=== PATIENT | female | born 1975 | race Two or more races ===

== ENCOUNTER 2024-03-26 02:08 | Emergency (ER) | payer BC, OTHER ==
[~2024-03-26] VITALS: Ht 157.5 cm; Wt 133.4 kg
[2024-03-26 03:07] LABS: Urine Bacteria FEW /hpf (None Seen); Urine Blood 1+ /uL (Negative); Urine Clarity Turbid (Clear); Urine Color Yellow (Yellow); Urine Mucus FEW (None Seen); Urine Protein, UAD TRACE (Negative); Urine Specific Gravity 1.028 (1.001-1.035); Urine Urobilinogen Normal (Negative); Urine WBC 8 /hpf (0 - 5)
[2024-03-26 04:27] LABS: Basophils # (auto) 0.1 10 ^3/uL (0-0.2); Basophils % (auto) 0.5 % (0.0-2.0); Eosinophils # (auto) 0.2 10 ^3/uL (0-0.8); Eosinophils % (auto) 1.5 % (0.0-7.0); Hematocrit 44.8 % (36.0-46.0); Hemoglobin 15.3 g/dL (12.2-16.2); Lymphocytes # (auto) 1.9 10 ^3/uL (0.4-5.4); Lymphocytes % (auto) 17.9 % (10.0-50.0); Mean Corpuscular Hemoglobin 29.8 pg (28.0-32.0); Mean Corpuscular Hgb Conc. 34.2 g/dL (32.0-36.0); Mean Corpuscular Volume 87.2 fL (80.0-100.0); Monocytes # (auto) 0.7 10 ^3/uL (0-1.3); Monocytes % (auto) 6.8 % (0.0-12.0); Neutrophils # (auto) 7.9 10 ^3/uL (1.6-8.6); Neutrophils % (auto) 73.3 % (37.0-80.0); Nucleated Red Blood Cells % 0.1 %; Platelet Count (auto) 188 10^3/uL (140-450); Red Blood Cells 5.14 10^6/uL (4.0-5.20); Red Cell Distribution Width 13.7 % (11.8-14.3); White Blood Cell 10.8 10^3/uL (4.4-10.8)
[2024-03-26 04:56] LABS: Alanine Aminotransferase 76 U/L (7-40); Albumin 4.7 g/dL (3.2-4.8); Alkaline Phosphatase 132 U/L (46-116); Anion Gap 5 (5-15); Aspartate Aminotransferase 210 U/L (13-40); BUN/Creatinine Ratio 12.9 (10.0-20.0); Blood Urea Nitrogen 11 mg/dL (9-23); Calcium 9.9 mg/dL (8.7-10.4); Carbon Dioxide 28 mmol/L (20-30); Chloride 107 mmol/L (98-107); Glucose 128 mg/dL (74-106); Lipase 50 U/L (12-53); Potassium 3.9 mmol/L (3.5-5.1); Sodium 140 mmol/L (136-145)
[2024-03-26 04:57] LABS: Bilirubin, Total 0.8 mg/dL (0.2-1.0); Total Protein 7.8 g/dL (5.7-8.2)
[2024-03-26] MEDS: ONDANSETRON HCL 4 MG/2 ML VIAL IV ONE (05:54)
[2024-03-26] MEDS: MORPHINE SULFATE 4 MG/ML SYR/VIAL IV ONE (05:56)
[2024-03-26] MEDS: levoFLOXacin 500MG 100 ML IV ONE (06:00)
[2024-03-26] MEDS ORDERED: DICY10CA PO (06:43)
[2024-03-26] MEDS ORDERED: CIPR-173 PO (06:43)
[2024-03-26] MEDS ORDERED: ZOFR4T PO (06:43)
[2024-03-26] MEDS ORDERED: ACET-1304 PO (06:54)
[2024-03-26] MEDS: hydrALAZINE HCL 20 MG/ML VL IV ONE (07:30)
[2024-03-26] MEDS: SODIUM CHLORIDE 0.9% 1,000 ML IV ONE (07:56)
[2024-03-26 08:16] VITALS: BP 160/84; PULSE 75; RESP 15; TEMP 98.7; O2SAT 99
== END 2024-03-26 08:17 | disposition home or self-care (01) ==
LOC: ER 02:08
DX: N39.0 Urinary tract infection, site not specified (principal); R10.2 Pelvic and perineal pain; I11.0 Hypertensive heart disease with heart failure; I48.91 Unspecified atrial fibrillation; Z98.890 Other specified postprocedural states; Z88.0 Allergy status to penicillin
CPT/HCPCS: 36415; 74176; 80053; 81001; 83605; 83690; 84702; 85025; 87086; 93005; 96365; 96375; 99285; J0360; J1956; J2270; J2405; J7030

== ENCOUNTER 2024-05-23 07:54 | Emergency (ER) | payer BC, MEDICAID ==
[~2024-05-23] VITALS: Ht 157.5 cm; Wt 145.4 kg
[~2024-05-23 07:54] MED LIST: ACET-1304 PO; CIPR-173 PO; DICY10CA PO; ZOFR4T PO
[2024-05-23] MEDS: OPHTHALMIC IRRIGATION SOLN 30ML OP ONE (09:07)
[2024-05-23] MEDS: FLUORESCEIN SOD OPTH TEST STRIP OP ONE (09:07)
[2024-05-23] MEDS ORDERED: GENT0.3S10 EACHEYE (09:21)
[2024-05-23] MEDS ORDERED: KETO0.5S31 EACHEYE (09:21)
--- NOTE | 2024-05-23 09:22 | ED.PDOC ---
Eye-HPI HPI Comments 48-year-old female patient presents to the clinic for pain to bilateral eyes. Patient reports she was cleaning off eye make-up with Vaseline and states that her eyes started burning. Patient has tearing of the bilateral eyes. Patient has been placing eyedrops bilateral eyes with minimal relief. Chief Complaint: Eye Problem Time Seen by MD: 08:43 Allergies: Coded Allergies: Penicillins (Verified Allergy, Unknown, 03/26/24) Home Meds Active Scripts Ketorolac Tromethamine (Ophth) (Ketorolac Tromethamine) 0.5 % Jennifer, 1 DROP EACHEYE QID for 2 Days, #5 ML Prov:MARY JANE JI [facility] 05/23/24 Gentamicin Sulfate (Gentamicin Sulfate) 0.3 % Jennifer, 2 DROP EACHEYE QID for 7 Days, #5 ML 0 Refills Prov:MARY JANE JI [facility] 05/23/24 Acetaminophen (Tylenol Extra Strength) 500 Mg Tab, 1000 MG PO Q6HP PRN, #30 TAB Prov:JOSE MAY MD 03/26/24 Dicyclomine Hcl (BENTYL CAPSULE) 10 Mg Cp, 2 CAP PO Q6HP PRN, #30 CAP 11 Refills Prov:JOSE MAY MD 03/26/24 Ondansetron Odt 4MG Tab (ZOFRAN PO) 4 Mg Tb, 4 MG PO TID PRN, #20 TAB ODT TAB-DISSOLVE IN MOUTH, THEN SWALLOW Prov:JOSE MAY MD 03/26/24 Ciprofloxacin Hcl (Cipro) 500 Mg Tab, 1 TAB PO BID for 10 Days, #20 TAB Prov:JOSE MAY MD 03/26/24 Mode of Arrival: Ambulatory Past Medical History PAST MEDICAL HISTORY: AFIB, CHF, HTN Surgical History: , Pacemaker, Tonsillectomy BORDERER History: Denies all BORDERER Hx Family History Family History: Reviewed,noncontributory to illness Social History Smoker: Non-Smoker Alcohol: Denies ETOH Use Drugs: Denies Drug Use Lives In: Home Constitutional: denies: chills, diaphoresis, fatigue, fever, malaise, sweats, weakness, others EENTM: reports: eye pain, tearing Respiratory: denies: cough, hemoptysis, orthopnea, SOB at rest, shortness of breath, SOB with excertion, stridor, wheezing, others Cardiovascular: denies: chest pain, dizzy spells, diaphoresis, Dyspnea on exertion, edema, irregular heart beat, left arm pain, lightheadedness, palpitations, PND, syncope, others Gastrointestinal: denies: abdomen distended, abdominal pain, blood streaked bowels, constipated, diarrhea, dysphagia, difficulty swallowing, hematemesis, melena, nausea, poor appetite, poor fluid intake, rectal bleeding, rectal pain, vomiting, others Genitourinary: denies: abnormal vagina bleeding, burning, dyspareunia, dysuria, flank pain, frequency, hematuria, incontinence, pain, , vagina disc harge, urgency, others Neurological: denies: dizziness, fainting, headache, left sided numbness, left sided weakness, numbness, paresthesia, pre-existing deficit, right sided numbness, right sided weakness, seizure, speech problems, tingling, tremors, weakness, others Musculoskeletal: denies: back pain, gout, joint pain, joint swelling, muscle pain, muscle stiffness, neck pain, others Integumetry: denies: bruises, change in color, change in hair/nails, dryness, laceration, lesions, lumps, rash, wounds, others Allergic/Immunocompromised: denies: Difficulty Healing, Frequent Infections, Hives, Itching, others Hematologic/Lymphatic: denies: anemia, blood clots, easy bleeding, easy bruising, swollen glands, others Endocrine: denies: excessive hunger, excessive sweating, excessive thirst, excessive urination, flushing, intolerance to cold, intolerance to heat, unexplained weight gain, unexplained weight loss, others Psychiatric: denies: anxiety, bipolar disorder, depression, hopeless, panic disorder, schizophrenia, sleepless, suicidal, others All Other Systems: Reviewed and Negative Physical Exam General Appearance: No Apparent Distress, Normal HEENT: PERRL/EOMI, Photophobia, Other (Tearing to bilateral eyes sclera white bilaterally) Neck: Full Range of Motion, Non-Tender, Normal, Normal Inspection Respiratory: Chest Non-Tender, Lungs Clear, No Accessory Muscle Use, No R espiratory Distress, Normal Breath Sounds Cardiovascular: No Edema, No JVD, No Murmur, No Gallop, Normal Peripheral Pulses, Regular Rate/Rhythm Breast Exam: Deferred Gastrointestinal: No Organomegaly, Non Tender, No Pulsatile Mass, Normal Bowel Sounds, Soft Genitalia: Deferred Pelvic: Deferred Rectal: Deferred Extremities: No calf tenderness, Normal capillary refill, Normal inspection, Normal range of motion, Non-tender, No pedal edema Neurologic: Alert, satellite communications operator II-XII nml as Tested, No Motor Deficits, Normal Affect, Normal Mood, No Sensory Deficits Cerebellar Function: Normal Reflexes: Normal Skin: Dry, Normal Color, Warm Lymphatic: No Adenopathy Was a procedure done? Was a procedure done?: Yes Sedation Sedation?: No Informed consent obtained: Yes Other Procedure Procedure Fluorescein. and elliott lamp exam Notes Abrasions noted to bilateral sclera EENT DIFF Eye: Conjunctivitis, Allergic, Bacterial, Corneal Abrasion, Foreign Body- Corneal Ear: N/A Nose: N/A Mouth: N/A Sore Throat: N/A X-Ray, Labs, Meds, VS Vital Signs Date Time Temp Pulse Resp B/P (MAP) Pulse Ox O2 Delivery O2 Flow Rate FiO2 05/23/24 09:35 78 16 100 Room Air 05/23/24 09:35 98.3 77 17 149/61 (90) 100 98.3 05/23/24 08:07 98.2 76 16 164/46 (85) 100 X-Ray, Labs, Meds, VS Comment On re-evaluation patient has symptomatic improvement. Patient is stable for discharge at this time. All test results and diagnostic imaging have been interpreted. All diagnostic findings, discharge care, and education instruction provided to the patient. Follow-up with PCP in 2-3 days. Patient to follow up with reed repairer. Patient to place cool compress on bilateral eyes for 20 minutes every 2 hours. Patient verbalized understanding, discharge instructions and agrees to treatment plan Vital signs are stable Patient is ambulatory Patient advised of which symptoms necessitate a return visit to the emergency room. Patient to return emergency room for any new worsening symptoms. Patient is aware that the purpose of this visit is for an acute medical emergency requiring emergent stabilization. Chronic conditions, including malignancies have not been ruled out. Patient is instructed to follow up with PCP as directed for continued care and workup. If unable to arrange follow up, patient is to return to the emergency room for reassessment. Patient was given verbal and written discharge instructions and acknowledges understanding Time of 1ST Reevaluation: 09:19 Reevaluation 1ST: Improved Patient Education/Counseling: Diagnosis, Treatment, Prognosis, Need For Follow Up Family Education/Counseling: Diagnosis, Treatment, Prognosis, Need For Follow Up Departure 1 Departure Time of Disposition: 09:45 Impression: Primary Impression: Abrasion of sclera of left eye Qualified Codes: S05.8X2A - Other injuries of left eye and orbit, initial encounter Additional Impression: Abrasion of sclera of right eye Qualified Codes: S05.8X1A - Other injuries of right eye and orbit, initial encounter Disposition: HOME / SELF CARE / HOMELESS Condition: Stable e-Prescriptions Ketorolac Tromethamine (Ophth) (Ketorolac Tromethamine) 0.5 % Jennifer 1 DROP EACHEYE QID for 2 Days, #5 ML Prov: MARY JANE JI [facility] 05/23/24 Gentamicin Sulfate (Gentamicin Sulfate) 0.3 % Jennifer 2 DROP EACHEYE QID for 7 Days, #5 ML 0 Refills Prov: MARY JANE JIP 05/23/24 Discharged With: Self, Spouse Critical Care Note Critical Care Time?: No Stability Stability form required: No Heart Score Heart Score: Heart Score Response (Comments) Value History N/A 0 EKG N/A 0 Age N/A 0 Risk Factors N/A 0 Troponin N/A 0 Total 0 MARY JANE JI [facility] May 23, 2024 09:22
[2024-05-23 09:35] VITALS: BP 149/61; PULSE 78; RESP 16; TEMP 98.3; O2SAT 100
== END 2024-05-23 09:38 | disposition home or self-care (01) ==
LOC: ER 07:54
DX: S05.02XA Injury of conjunctiva and corneal abrasion without foreign body, left eye, initial encounter (principal); S05.01XA Injury of conjunctiva and corneal abrasion without foreign body, right eye, initial encounter; I11.0 Hypertensive heart disease with heart failure; I50.9 Heart failure, unspecified; I48.91 Unspecified atrial fibrillation; Z95.0 Presence of cardiac pacemaker; Z90.89 Acquired absence of other organs; Z98.890 Other specified postprocedural states; Z88.0 Allergy status to penicillin; Z79.899 Other long term (current) drug therapy; X58.XXXA Exposure to other specified factors, initial encounter; Y93.89 Activity, other specified; Y92.89 Other specified places as the place of occurrence of the external cause; Y99.8 Other external cause status

== ENCOUNTER 2024-10-13 19:10 | Inpatient (IN) | payer MEDICAID, SELFPAY ==
[~2024-10-13] VITALS: Ht 157.5 cm; Wt 147.8 kg
[~2024-10-13 19:10] MED LIST changes: +GENT0.3S10 EACHEYE; +KETO0.5S31 EACHEYE
[2024-10-13 20:04] LABS: Basophils # (auto) 0 10 ^3/uL (0-0.2); Basophils % (auto) 0.3 % (0.0-2.0); Eosinophils # (auto) 0.2 10 ^3/uL (0-0.8); Eosinophils % (auto) 1.4 % (0.0-7.0); Hematocrit 48.5 % (36.0-46.0); Lymphocytes % (auto) 18.6 % (10.0-50.0); Mean Corpuscular Hemoglobin 29.1 pg (28.0-32.0); Mean Corpuscular Hgb Conc. 33.1 g/dL (32.0-36.0); Mean Corpuscular Volume 88.1 fL (80.0-100.0); Monocytes # (auto) 0.5 10 ^3/uL (0-1.3); Monocytes % (auto) 4.9 % (0.0-12.0); Neutrophils # (auto) 8.2 10 ^3/uL (1.6-8.6); Neutrophils % (auto) 74.8 % (37.0-80.0); Nucleated Red Blood Cells % 0.1 %; Platelet Count (auto) 199 10^3/uL (140-450); Red Blood Cells 5.51 10^6/uL (4.0-5.20); White Blood Cell 10.9 10^3/uL (4.4-10.8)
--- NOTE | 2024-10-13 20:05 | ED.PDOC ---
History of Present Illness HPI Comments 49 y/o morbidly obese F, with a Hx of AICD, AFIB, CHF, DM, HTN, s/p cardiac arrest 2x, and , presents with c/o RLQ abdominal pain, today. Patient endorses on sudden and unprovoked onset of 10/10 burning pain in her RLQ area that radiates to her right flank. She reports no prior history of symptoms in the past, kidney stones, gallstones, or additional abdominal surgeries. Patient denies any urinary symptoms, fever, chills, nausea, vomiting, or other associated symptoms or modifiers at this time. Chief Complaint: Abdominal Pain Time Seen by MD: 19:35 Primary Care Provider: [facility] Reviewed Notes: Nurses Notes, Medications, Allergies Allergies: Coded Allergies: Penicillins (Verified Allergy, Unknown, 03/26/24) Home Meds Active Scripts Ketorolac Tromethamine (Ophth) (Ketorolac Tromethamine) 0.5 % Jennifer, 1 DROP EACHEYE QID for 2 Days, #5 ML Prov:MARY JANE JI [employer] 05/23/24 Gentamicin Sulfate (Gentamicin Sulfate) 0.3 % Jennifer, 2 DROP EACHEYE QID for 7 Days, #5 ML 0 Refills Prov:MARY JANE JI [facility] 05/23/24 Acetaminophen (Tylenol Extra Strength) 500 Mg Tab, 1000 MG PO Q6HP PRN, #30 TAB Prov:JOSE MAY MD 03/26/24 Dicyclomine Hcl (BENTYL CAPSULE) 10 Mg Cp, 2 CAP PO Q6HP PRN, #30 CAP 11 Refills Prov:JOSE MAY MD 03/26/24 Ondansetron Odt 4MG Tab (ZOFRAN PO) 4 Mg Tb, 4 MG PO TID PRN, #20 TAB ODT TAB-DISSOLVE IN MOUTH, THEN SWALLOW Prov:JOSE MAY MD 03/26/24 Ciprofloxacin Hcl (Cipro) 500 Mg Tab, 1 TAB PO BID for 10 Days, #20 TAB Prov:JOSE MAY MD 03/26/24 Information Source: Patient Mode of Arrival: Ambulatory Past Medical History PAST MEDICAL HISTORY: AFIB, CHF, DM, HTN Past Medical History (Other): status post cardiac arrest 2x, morbid obesity Surgical History: , Pacemaker (AICD), Tonsillectomy CASING CLEANER History: Denies all CASING CLEANER Hx Family History Family History: Reviewed,noncontributory to illness Social History Smoker: Non-Smoker Alcohol: Denies ETOH Use Drugs: Denies Drug Use Lives In: Home All Other Systems: Reviewed and Negative (Comprehensive systems review obtained and negative except for what is stated in the HPI.) Physical Exam General Appearance: No Apparent Distress, Obese HEENT: Normal ENT Inspection, Pharynx Normal, TMs Normal Neck: Full Range of Motion, Non-Tender, Normal, Normal Inspection Respiratory: Chest Non-Tender, Lungs Clear, No Accessory Muscle Use, No Respiratory Distress, Normal Breath Sounds Cardiovascular: No Edema, No JVD, No Murmur, No Gallop, Normal Peripheral Pulses, Regular Rate/Rhythm Breast Exam: Deferred Gastrointestinal: No Organomegaly, No Pulsatile Mass, Normal Bowel Sounds, RUQ (mild tenderness ), Soft, Tenderness (mild tenderness RUQ), Other (obese abdomen ) Genitalia: Deferred Pelvic: Deferred Rectal: Deferred Extremities: No calf tenderness, Normal capillary refill, Normal inspection, Normal range of motion, Non-tender, No pedal edema Musculoskeletal : Apperance: Normal Neurologic: Alert, dental aide II-XII nml as Tested, No Motor Deficits, Normal Affect, Normal Mood, No Sensory Deficits Cerebellar Function: Normal Reflexes: Normal Skin: Dry, Normal Color, Warm Lymphatic: No Adenopathy Was a procedure done? Was a procedure done?: No Differential Dx Considerations may include: cholelithiasis, cholecystitis, nephrolithiasis, pyelonephritis, ovarian cysts, ovarian torsion, UTI,viral syndrome, among others X-Ray, Labs, Meds, VS Vital Signs Date Time Temp Pulse Resp B/P (MAP) Pulse Ox O2 Delivery O2 Flow Rate FiO2 10/13/24 19:31 98.6 92 20 176/90 (118) 96 98.6 Lab Test 10/13/24 19:50 10/13/24 19:33 Range/Units White Blood Count 10.9 H 4.4-10.8 10^3/uL Red Blood Count 5.51 H 4.0-5.20 10^6/uL Hemoglobin 16.0 12.2-16.2 g/dL Hematocrit 48.5 H 36.0-46.0 % Mean Corpuscular Volume 88.1 80.0-100.0 fL Mean Corpuscular Hemoglobin 29.1 28.0-32.0 pg Mean Corpuscular Hemoglobin Concent 33.1 32.0-36.0 g/dL Red Cell Distribution Width 14.0 11.8-14.3 % Platelet Count 199 140-450 10^3/uL Mean Platelet Volume 9.7 6.9-10.8 fL Neutrophils (%) (Auto) 74.8 37.0-80.0 % Lymphocytes (%) (Auto) 18.6 10.0-50.0 % Monocytes (%) (Auto) 4.9 0.0-12.0 % Eosinophils (%) (Auto) 1.4 0.0-7.0 % Basophils (%) (Auto) 0.3 0.0-2.0 % Neutrophils # (Auto) 8.2 1.6-8.6 10 ^3/uL Lymphocytes # (Auto) 2.0 0.4-5.4 10 ^3/uL Monocytes # (Auto) 0.5 0-1.3 10 ^3/uL Eosinophils # (Auto) 0.2 0-0.8 10 ^3/uL Basophils # (Auto) 0 0-0.2 10 ^3/uL Nucleated Red Blood Cells 0.1 % Sodium Level 139 136-145 mmol/L Potassium Level 4.0 3.5-5.1 mmol/L Chloride Level 105 98-107 mmol/L Carbon Dioxide Level 27 20-31 mmol/L Anion Gap 7 5-15 Blood Urea Nitrogen 14 9-23 mg/dL Creatinine 0.89 0.550-1.02 mg/dL Glomerular Filtration Rate Calc 80 >90 mL/min BUN/Creatinine Ratio 15.7 10.0-20.0 Serum Glucose 143 H 74-106 mg/dL Lactic Acid Level 1.5 0.4-2.0 mmol/L Calcium Level 9.8 8.7-10.4 mg/dL Total Bilirubin 0.8 0.2-1.0 mg/dL Aspartate Amino Transferase (AST) 66 H 13-40 U/L Alanine Aminotransferase (ALT) 36 7-40 U/L Alkaline Phosphatase 119 H 46-116 U/L Total Protein 7.9 5.7-8.2 g/dL Albumin 4.8 3.2-4.8 g/dL Lipase 43 12-53 U/L Urine Color Yellow Yellow Urine Clarity Clear Clear Urine pH 5.5 5.0-9.0 Urine Specific [place] 1.024 1.001-1.035 Urine Protein Trace H Negative Urine Ketones Negative Negative Urine Blood 3+ H Negative /uL Urine Nitrite Negative Negative Urine Bilirubin Negative Negative Urine Urobilinogen Normal Negative mg/dL Urine Leukocyte Esterase Negative Negative /uL Urine RBC 40 0 - 4 /hpf Urine Microscopic WBC 4 0-5 /HPF Urine Squamous Epithelial Cells Few <5 /hpf Urine Bacteria Few H None Seen /hpf Urine Mucus Few None Seen Urine Glucose Normal Normal mg/dL [facility] [id number] [place] [id number] Ph: [phone] DIAGNOSTIC IMAGING Diagnostic Imaging Report : [id number] Signed PATIENT: ANALIA GONZALEZ ACCT: [id number] UNIT: [id number] : 1975 LOC: ER ROOM / BED: / AGE / SEX: 49 / F ADM STATUS: REG ER SERVICE 39 ORDERING PHYSICIAN: RONNI TANG MD PROCEDURE(s): GBUS - GALLBLADDER REASON: RUQ pain ORDER NUMBER(s): [id number], ACCESSION NUMBER(s): [id number] INDICATION: RUQ pain TECHNIQUE: Multiple real-time sonographic images of the abdomen were obtained. COMPARISON: None FINDINGS: Increased echogenicity of the hepatic parenchyma consistent with steatosis.. The liver measures 20.4 cm. No intrahepatic biliary ductal dilatation is noted. The gallbladder wall measures 0.27 cm and is unremarkable. Multiple mobile gallstones are noted in the gallbladder.. The common duct measures 0.43 cm and is unremarkable. No pericholecystic fluid is noted. Positive ultrasound Contreras's sign suggest acute cholecystitis. The right kidney measures 10.7 cm. No hydronephrosis. The pancreas is not well visualized due to obscuration from bowel gas. The visualized portions of the IVC and aorta are grossly unremarkable. IMPRESSION: 1. Cholelithiasis with positive ultrasound contreras's sign suggesting acute cholecystitis. 2. Liver measures 20.4 cm in length with findings suggesting steatosis. 3. Right kidney measures 10.7 cm in length with no hydronephrosis. ATED BY: MEHDI ELAINE Jr., DO DICTATED DATE/TIME: 10/13/242023 SIGNED BY: MEHDI ELAINE Jr., SIGNED DATE/TIME: 10/13/242023 CC: [place] [id number] Ph: [phone] DIAGNOSTIC IMAGING Diagnostic Imaging Report : [id number] Signed PATIENT: ANALIA GONZALEZ ACCT: [id number] UNIT: [id number] : 1975 LOC: ER ROOM / BED: / AGE / SEX: 49 / F ADM STATUS: REG ER SERVICE 39 ORDERING PHYSICIAN: RONNI TANG MD PROCEDURE(s): ABPL - CT AB PEL WO CON-NO ORAL OR IV REASON: right flank pain ORDER NUMBER(s): [id number], ACCESSION NUMBER(s): [id number] CT SCAN ABDOMEN AND PELVIS WITHOUT CONTRAST CLINICAL HISTORY: right flank pain TECHNIQUE: Helical axial images are obtained from the lung bases through the pelvis without oral contrast. No intravenous contrast was administered. Coronal and sagittal reformatted images were generated from thin section reconstructions. One or more of the following radiation dose reduction techniques were used for this examination: automated exposure control, adjustment of the mA and/or kV according to patient size, use of iterative syl nstruction technique. COMPARISON: CT CT AB PEL WO CON-NO ORAL OR IV on DOS: 03/26/24 FINDINGS: LOWER THORAX: Imaged lung bases are grossly clear. ABDOMEN AND PELVIS: Evaluation of visceral and vascular structures is limited due to lack of contrast administration. As visualized, the unenhanced liver, spleen, pancreas and adrenals appear grossly unremarkable. No sizable, radiopaque cholelithiasis or biliary ductal dilatation. No hydroureteronephrosis or sizable, obstructing urinary tract calculi identi fied. No evidence of abdominal aortic aneurysm. Stomach appears to be distended with ingested content. No evidence of small-kanu wel obstruction. Normal caliber appendix. No free intraperitoneal air or fluid identified. Small fat containing umbilical hernia again noted. No sizable bladder calculus. Degenerative changes of the lower lumbar spine. IMPRESSION: No bowel obstruction, free intraperitoneal air/fluid or sizable inflammatory collections identified on this noncontrast examination. Other findings as above. ATED BY: BERTIN LAN MD DICTATED DATE/TIME: 10/13/242100 SIGNED BY: BERTIN LAN MD SIGNED DATE/TIME: 10/13/242100 CC: Time of 1ST Reevaluation: 21:00 Reevaluation 1ST: Unchanged Patient Education/Counseling: Diagnosis, Treatment Family Education/Counseling: No Family Present Additional Information Previous medical encounters reviewed: May 23, 2024 encounter for abrasion of sclera of left eye and March 26, 2024 encounter for RUQ pain The following tests were ordered, and results were reviewed by me: gallbladder US, CT abdomen/pelvis w/o contrast, UA, lipase, CMP, CBC Additional Information was gathered from interviewing the following independent historians: n/a I reviewed and agreed with the following test results read by other providers: gallbladder US, CT abdomen/pelvis w/o contrast, I discussed treatment and results with medical personnel and: Patient Sepsis Sepsis Reasesment Focused Exam Sepsis focused exam: focus exam completed (In the initial resuscitation at least 30 mL/kg of IV crystalloid fluid was NOT given within the first 3 hr due to concerns of fluid overload), time: ) Departure 1 Departure Time of Disposition: 20:42 Impression: Primary Impression: Right upper quadrant pain Additional Impression: Cholecystitis Disposition: ADMITTED INPATIENT Admit to: Med Surg Condition: Guarded Discharged With: Self Comments Right Upper Quadrant Pain - Acute Cholecystitis Chief Complaint: Right upper quadrant abdominal pain History of Present Illness: 49-year-old female with morbid obesity presents to the Emergency Department with severe right upper quadrant and right flank pain. Patient rates the pain as 10/10 in severity and describes it as burning in nature. The pain is localized to the right upper quadrant and right flank area. Review of Systems: Limited review of systems due to acute presentation. Gastrointestinal: Positive for RUQ pain Constitutional: No fever reported Medications: Current medications not documented in customs and border protection inspector Allergies: No known allergies documented Past Medical History: Morbid Obesity DM HTN A-fib Physical Exam: Physical exam findings not explicitly documented in customs and border protection inspector Positive sonographic Contreras's sign noted on ultrasound, suggesting right upper quadrant tenderness Lab Results: WBC: 10.9 (mildly elevated) Phosphorus: 119 (elevated) AST: 66 (slightly elevated) Lipase: 43 (normal) Urinalysis: 3+ blood Imaging and Other Relevant Results: Abdominal Ultrasound: - Gallstones present - Positive sonographic Contreras's sign - Findings consistent with early cholecystitis CT Abdomen/Pelvis: - No acute pathology identified Medical Decision Making: Summary Statement: 49-year-old female with morbid obesity presenting with severe RUQ pain, found to have gallstones and early cholecystitis on imaging, supported by elevated inflammatory markers. Problem List: 1. Acute Cholecystitis 2. Morbid Obesity 3. Abdominal Pain Differential Diagnosis: Acute Cholecystitis, Cholelithiasis, Acute Hepatitis, Peptic Ulcer Disease, Pneumonia ED Course: Patient received Zofran for nausea and Zosyn for empiric antibiotic coverage. Decision made to admit for further management of early cholecystitis. Assessment and Plan: 1. Acute Cholecystitis: - Admit to hospital for further management - Continue IV Zosyn for empiric antibiotic coverage - NPO status - Surgery consultation for possible cholecystectomy - Continue antiemetics as needed 2. Morbid Obesity: - Consider impact on surgical planning 3. Pain Management: - Continue appropriate analgesics - Monitor pain levels Billing Information: ICD-10: K81.0 - Acute cholecystitis ICD-10: E66.01 - Morbid obesity ICD-10: R10.11 - Right upper quadrant pain Critical Care Note Critical Care Time?: Yes (35 min-critical care time only) Critical care comment: Total critical care time: Approximately 36 minutes Due to a high probability of clinically significant, life threatening deterioration, the patient required my highest level of preparedness to intervene emergently and I personally spent this critical care time directly and personally managing the patient. This critical care time included obtaining a history; examining the patient; pulse oximetry; ordering and review of studies; arranging urgent treatment with development of a management plan; evaluation of patient's response to treatment; frequent reassessment; and, discussions with other providers. This critical care time was performed to assess and manage the high probability of imminent, life-threatening deterioration that could result in multi-organ failure. It was exclusive of separately billable procedures and treating other patients. Stability Stability form required: No Heart Score Heart Score: Heart Score Response (Comments) Value History N/A 0 EKG N/A 0 Age N/A 0 Risk Factors N/A 0 Troponin N/A 0 Total 0 I personally scribed for RONNI TANG MD ([email or web address]) on 10/13/24 at 20:05. Electronically submitted by Connor Garland ([email or web address]). I personally scribed for RONNI TANG MD ([email or web address]) on 10/13/24 at 20:38. Electronically submitted by Connor Garland ([email or web address]). I personally scribed for RONNI TANG MD ([email or web address]) on 10/13/24 at 21:08. Electronically submitted by Connor Garland ([email or web address]). RONNI TANG MD Oct 13, 2024 20:05
[2024-10-13 20:17] LABS: Alanine Aminotransferase 36 U/L (7-40); Anion Gap 7 (5-15); BUN/Creatinine Ratio 15.7 (10.0-20.0); Bilirubin, Total 0.8 mg/dL (0.2-1.0); Blood Urea Nitrogen 14 mg/dL (9-23); Calcium 9.8 mg/dL (8.7-10.4); Carbon Dioxide 27 mmol/L (20-31); Chloride 105 mmol/L (98-107); Lipase 43 U/L (12-53); Sodium 139 mmol/L (136-145); Total Protein 7.9 g/dL (5.7-8.2)
--- NOTE | 2024-10-13 20:26 | DVH ---
INDICATION: RUQ pain TECHNIQUE: Multiple real-time sonographic images of the abdomen were obtained. COMPARISON: None FINDINGS: Increased echogenicity of the hepatic parenchyma consistent with steatosis.. The liver alonso ures 20.4 cm. No intrahepatic biliary ductal dilatation is noted. The gallbladder wall measures 0.27 cm and is unremarkable. Multiple mobile gallstones are noted in the gallbladder.. The common duct measures 0.43 cm and is unremarkable. No pericholecystic fluid is noted. Positive ultrasound Contreras's sign suggest acute cholecystitis. The right kidney measures 10.7 cm. No hydronephrosis. The pancreas is not well visualized due to obscuration from bowel gas. The visualized portions of the IVC and aorta are grossly unremarkable. IMPRESSION: 1. Cholelithiasis with positive ultrasound contreras's sign suggesting acute cholecystitis. 2. Liver measures 20.4 cm in length with findings suggesting steatosis. 3. Right kidney measures 10.7 cm in length with no hydronephrosis.
[2024-10-13 20:32] LABS: Urine Bacteria FEW /hpf (None Seen); Urine Blood 3+ /uL (Negative); Urine Clarity Clear (Clear); Urine Color Yellow (Yellow); Urine Mucus FEW (None Seen); Urine Protein, UAD TRACE (Negative); Urine Specific Gravity 1.024 (1.001-1.035); Urine Squamous Epithelial Cell FEW /hpf (<5); Urine Urobilinogen Normal (Negative); Urine WBC 4 /HPF (0-5); Urine pH 5.5 (5.0-9.0)
[2024-10-13 20:34] LABS: Albumin 4.8 g/dL (3.2-4.8); Alkaline Phosphatase 119 U/L (46-116); Aspartate Aminotransferase 66 U/L (13-40); Glucose 143 mg/dL (74-106)
--- NOTE | 2024-10-13 21:03 | DVH ---
CT SCAN ABDOMEN AND PELVIS WITHOUT CONTRAST CLINICAL HISTORY: right flank pain TECHNIQUE: Helical axial images are obtained from the lung bases through the pelvis without oral cont rast. No intravenous contrast was administered. Coronal and sagittal reformatted images were generate d from thin section reconstructions. One or more of the following radiation dose reduction techniques were used for this examination: automated exposure control, adjustment of the mA and/or kV according to patient size, use of iterative reconstruction technique. COMPARISON: CT CT AB PEL WO CON-NO ORAL OR IV on DOS: 03/26/24 FINDINGS: LOWER THORAX: Imaged lung bases are grossly clear. ABDOMEN AND PELVIS: Evaluation of visceral and vascular structures is limited due to lack of contrast administration. As visualized, the unenhanced liver, spleen, pancreas and adrenals appear grossly unremarkable. No si zable, radiopaque cholelithiasis or biliary ductal dilatation. No hydroureteronephrosis or sizable, obstructing urinary tract calculi identified. No evidence of abdominal aortic aneurysm. Stomach appears to be distended with ingested content. No evidence of small-bowel obstruction. Zaida l caliber appendix. No free intraperitoneal air or fluid identified. Small fat containing umbilical hernia again noted. No sizable bladder calculus. Degenerative changes of the lower lumbar spine. IMPRESSION: No bowel obstruction, free intraperitoneal air/fluid or sizable inflammatory collections identified o n this noncontrast examination. Other findings as above.
[2024-10-13 22:45] VITALS: PULSE 81; RESP 22; O2SAT 98
[2024-10-13] MEDS: ONDANSETRON ODT 4 MG TAB PO ONE (22:51)
[2024-10-13] MEDS: PIPERACILLIN-TAZOB 3.375GM 100 ML IV ONE (22:54)
[2024-10-13] MEDS: MORPHINE SULFATE 4 MG/ML SYR/VIAL IV ONE (23:46)
[2024-10-13] MEDS: ONDANSETRON HCL 4 MG/2 ML VIAL IV ONE (23:46)
[2024-10-14] VITALS (7 sets, daily range): BP systolic 118–149; BP diastolic 55–86; PULSE 66–71; RESP 17–19; TEMP 97.6–98.2; O2SAT 94–96
[2024-10-14] MEDS: MORPHINE SULFATE 4 MG/ML SYR/VIAL IV ONE (01:13)
[2024-10-14] MEDS: ONDANSETRON HCL 4 MG/2 ML VIAL IV ONE (01:15)
[2024-10-14] MEDS ORDERED: hydrALAZINE HCL 20 MG/ML VL IV PRN (01:30)
--- NOTE | 2024-10-14 01:55 | DVH ---
CHEST RADIOGRAPH Indication: preop Technique: Single frontal view of the chest was obtained COMPARISON: None FINDINGS: Lines and Tubes: None Lungs: Clear Pleura: No effusion. No pneumothorax. Cardiomediastinal contours: Unremarkable. Left anterior chest wall AICD. Bones: Unremarkable IMPRESSION: 1. No acute disease.
--- NOTE | 2024-10-14 02:03 | DVHHP2 ---
History of Present Illness Reason for Visit: Abdominal pain History of Present Illness 49-year-old female presents for evaluation of abdominal pain. Patient reports a one day history of sharp right upper quadrant abdominal pain that radiates to her back. She also reports episodes of nausea and occasional chills. Denies diarrhea or constipation. Past Medical History Hypertension, diabetes mellitus, AFib, CHF, mi Past Surgical History AICD, tonsillectomy, Family History Noncontributory Smoke: No ALCOHOL: none Drugs: None Lives: with Family Review of Systems Review of Systems Review of systems are currently negative otherwise addressed in HPI. Allergies: Coded Allergies: Penicillins (Verified Allergy, Unknown, 03/26/24) Medications Current Medications Medications Dose Ordered Sig/Prashant Route Start Time Stop Time Status Last Admin Dose Admin Hydralazine HCl 10 mg Q6HP PRN IV 10/14/24 01:30 Levofloxacin/ Dextrose 100 ml @ 100 mls/hr DAILY IV 10/14/24 10:00 Metronidazole 100 ml @ 100 mls/hr Q8HR IV 10/14/24 06:00 Ondansetron HCl 4 mg Q4HP PRN IV 10/14/24 01:30 Morphine Sulfate 2 mg Q4HPRN PRN IV 10/14/24 01:30 Exam Vital Signs Vital Signs Date Time Temp Pulse Resp B/P (MAP) Pulse Ox O2 Delivery O2 Flow Rate FiO2 10/14/24 01:53 75 20 140/75 10/14/24 01:06 98.7 98 98.7 10/14/24 01:06 Room Air 10/13/24 22:45 0 21 Exam Gen: 49-year-old female in mild distress, obese Skin: Warm, dry, normal color and texture, no rash. HEENT: Normocephalic atraumatic, mucous membranes moist and pink. Neck: Cervical and supraclavicular nodes normal without enlargement, trachea is midline, thyroid gland is normal without masses. Pulmonary: Clear to auscultation and percussion bilaterally. Cardiac: Regular rate and rhythm. No murmur Abdomen: Soft, right upper quadrant tenderness, nondistended, bowel sounds present all 4 quadrants, no guarding, no rigidity, no organomegaly. Extremities: No cyanosis, clubbing, no edema Neuro: Cranial nerves II through XII grossly intact, normal affect and speech, no focal motor deficits. Labs/Xrays ORDERING PHYSICIAN: RONNI TANG MD PROCEDURE(s): ABPL - CT AB PEL WO CON-NO ORAL OR IV REASON: right flank pain ORDER NUMBER(s): [id number], ACCESSION NUMBER(s): [id number] CT SCAN ABDOMEN AND PELVIS WITHOUT CONTRAST CLINICAL HISTORY: right flank pain TECHNIQUE: Helical axial images are obtained from the lung bases through the pelvis without oral contrast. No intravenous contrast was administered. Coronal and sagittal reformatted images were generated from thin section reconstructions. One or more of the following radiation dose reduction techniques were used for this examination: automated exposure control, adjustment of the mA and/or kV according to patient size, use of iterative reconstruction technique. COMPARISON: CT CT AB PEL WO CON-NO ORAL OR IV on DOS: 03/26/24 FINDINGS: LOWER THORAX: Imaged lung bases are grossly clear. ABDOMEN AND PELVIS: Evaluation of visceral and vascular structures is limited due to lack of contra st administration. As visualized, the unenhanced liver, spleen, pancreas and adrenals appear grossly unremarkable. No sizable, radiopaque cholelithiasis or biliary ductal dilatation. No hydroureteronephrosis or sizable, obstructing urinary tract calculi identified. No evidence of abdominal aortic aneurysm. Stomach appears to be distended with ingested content. No evidence of small- bowel obstruction. Normal caliber appendix. No free intraperitoneal air or fluid identified. Small fat containing umbilical hernia again noted. No sizable bladder calculus. Degenerative changes of the lower lumbar spine. IMPRESSION: No bowel obstruction, free intraperitoneal air/fluid or sizable inflammatory collections identified on this noncontrast examination. Other findings as above. ATED BY: BERTIN LAN MD ORDERING PHYSICIAN: RONNI TANG MD PROCEDURE(s): GBUS - GALLBLADDER REASON: RUQ pain ORDER NUMBER(s): [id number], ACCESSION NUMBER(s): [id number] INDICATION: RUQ pain TECHNIQUE: Multiple real-time sonographic images of the abdomen were obtained. COMPARISON: None FINDINGS: Increased echogenicity of the hepatic parenchyma consistent with steatosis.. The liver measures 20.4 cm. No intrahepatic biliary ductal dilatation is noted. The gallbladder wall measures 0.27 cm and is unremarkable. Multiple mobile gallstones are noted in the gallbladder.. The common duct measures 0.43 cm and is unremarkable. No pericholecystic fluid is noted. Positive ultrasound Contreras's sign suggest acute cholecystitis. The right kidney measures 10.7 cm. No hydronephrosis. The pancreas is not well visualized due to obscuration from bowel gas. The visualized portions of the IVC and aorta are grossly unremarkable. IMPRESSION: 1. Cholelithiasis with positive ultrasound contreras's sign suggesting acute cholecystitis. 2. Liver measures 20.4 cm in length with findings suggesting steatosis. 3. Right kidney measures 10.7 cm in length with no hydronephrosis. Labs Test 10/13/24 19:50 10/13/24 19:33 Range/Units White Blood Count 10.9 H 4.4-10.8 10^3/uL Red Blood Count 5.51 H 4.0-5.20 10^6/uL Hemoglobin 16.0 12.2-16.2 g/dL Hematocrit 48.5 H 36.0-46.0 % Mean Corpuscular Volume 88.1 80.0-100.0 fL Mean Corpuscular Hemoglobin 29.1 28.0-32.0 pg Mean Corpuscular Hemoglobin Concent 33.1 32.0-36.0 g/dL Red Cell Distribution Width 14.0 11.8-14.3 % Platelet Count 199 140-450 10^3/uL Mean Platelet Volume 9.7 6.9-10.8 fL Neutrophils (%) (Auto) 74.8 37.0-80.0 % Lymphocytes (%) (Auto) 18.6 10.0-50.0 % Monocytes (%) (Auto) 4.9 0.0-12.0 % Eosinophils (%) (Auto) 1.4 0.0-7.0 % Basophils (%) (Auto) 0.3 0.0-2.0 % Neutrophils # (Auto) 8.2 1.6-8.6 10 ^3/uL Lymphocytes # (Auto) 2.0 0.4-5.4 10 ^3/uL Monocytes # (Auto) 0.5 0-1.3 10 ^3/uL Eosinophils # (Auto) 0.2 0-0.8 10 ^3/uL Basophils # (Auto) 0 0-0.2 10 ^3/uL Nucleated Red Blood Cells 0.1 % Sodium Level 139 136-145 mmol/L Potassium Level 4.0 3.5-5.1 mmol/L Chloride Level 105 98-107 mmol/L Carbon Dioxide Level 27 20-31 mmol/L Anion Gap 7 5-15 Blood Urea Nitrogen 14 9-23 mg/dL Creatinine 0.89 0.550-1.02 mg/dL Glomerular Filtration Rate Calc 80 >90 mL/min BUN/Creatinine Ratio 15.7 10.0-20.0 Serum Glucose 143 H 74-106 mg/dL Lactic Acid Level 1.5 0.4-2.0 mmol/L Calcium Level 9.8 8.7-10.4 mg/dL Total Bilirubin 0.8 0.2-1.0 mg/dL Aspartate Amino Transferase (AST) 66 H 13-40 U/L Alanine Aminotransferase (ALT) 36 7-40 U/L Alkaline Phosphatase 119 H 46-116 U/L Total Protein 7.9 5.7-8.2 g/dL Albumin 4.8 3.2-4.8 g/dL Lipase 43 12-53 U/L Urine Color Yellow Yellow Urine Clarity Clear Clear Urine pH 5.5 5.0-9.0 Urine Specific [place] 1.024 1.001-1.035 Urine Protein Trace H Negative Urine Ketones Negative Negative Urine Blood 3+ H Negative /uL Urine Nitrite Negative Negative Urine Bilirubin Negative Negative Urine Urobilinogen Normal Negative mg/dL Urine Leukocyte Esterase Negative Negative /uL Urine RBC 40 0 - 4 /hpf Urine Microscopic WBC 4 0-5 /HPF Urine Squamous Epithelial Cells Few <5 /hpf Urine Bacteria Few H None Seen /hpf Urine Mucus Few None Seen Urine Glucose Normal Normal mg/dL Assessment/Plan Assessment/Plan Assessment Acute cholecystitis Acute abdominal pain Leukocytosis Morbid obesity Plan Admit the patient to [facility] to [facility] hospitalist [facility] scan pending Surgical consultation Levaquin/Flagyl Maintenance IV fluids Pain management Continue treatment per orders. Plan discussed with: Patient My Orders Orders - IZABELLA CHASE AGACNP Procedure Category Date Status Time Hydralazine Injection PHA 10/14/24 In Process (Apresoline Inject 01:30 Sodium Chloride 0.9% PHA 10/14/24 In Process 01:30 Levofloxacin 500mg PHA 10/14/24 In Process (Levaquin 500mg/ 100m 10:00 Metronidazole PHA 10/14/24 In Process 500mg/100ml (Flagyl 06:00 * Surgical Consult CONS 10/14/24 Transmitted Nm Hida Scan NM 10/14/24 Logged 01:30 Chest Xray 1 View XY 10/14/24 Resulted 01:30 Type And Screen BBK 10/14/24 Logged 01:30 Admit ADMIT 10/14/24 Transmitted 01:30 Ondansetron Hcl PHA 10/14/24 In Process (Zofran) 01:30 Complete Blood Count LAB 10/15/24 Verified 04:00 Comprehensive LAB 10/15/24 Verified Metabolic Panel 04:00 Npo (Nothing By DIET 10/14/24 Transmitted Mouth) Diet Breakfast Condition: Stable ADALID 10/14/24 In Process 01:30 Bedrest With Bathroom ADALID 10/14/24 In Process Privileg 01:30 Morphine Sulfate PHA 10/14/24 In Process Injection 01:30 Date of Service: Oct 14, 2024 Billing Provider: IZABELLA CHASE Common Visit Codes: [id number] INP/OBS CARE (HIGH) IZABELLA CHASE Oct 14, 2024 02:03
[2024-10-14] MEDS: SODIUM CHLORIDE 0.9% 1,000 ML IV ONE (02:31)
[2024-10-14] MEDS: ONDANSETRON HCL 4 MG/2 ML VIAL IV PRN (04:27)
[2024-10-14] MEDS: ONDANSETRON HCL 4 MG/2 ML VIAL ONE (04:28)
[2024-10-14] MEDS: MORPHINE SULFATE INJ 2 MG/ml SYRG IV PRN (04:28)
[2024-10-14] MEDS: MORPHINE SULFATE INJ 2 MG/ml SYRG ONE (04:28)
[2024-10-14] MEDS: metroNIDAZOLE 500MG/100ML 100 ML IV SCH (06:55)
[2024-10-14] MEDS ORDERED: METO-159 PO (07:39)
[2024-10-14] MEDS ORDERED: ATOR80TA PO (07:39)
[2024-10-14] MEDS ORDERED: AMIO200T33 PO (07:39)
[2024-10-14] MEDS ORDERED: APIX5TAB PO (07:39)
--- NOTE | 2024-10-14 10:28 | DVHINCON2 ---
DATE OF CONSULTATION: 10/14/2024 SURGICAL CONSULTATION HISTORY OF PRESENT ILLNESS: The patient is being evaluated for abdominal pain. The patient is interviewed and examined in her bed. She is in no acute distress. She was brought to the hospital yesterday with abdominal pain radiating to her back accompanied by nausea and occasional chills. The patient's history is positive for morbid obesity, listed BMI of 57.7 kilograms per meters squared. The patient had an AICD placed in 2022 for uncontrollable AFib, resistant to cardioversion. PAST SURGICAL HISTORY: The patient had previous . Otherwise, no abdominal or chest surgeries. SOCIAL HISTORY: The patient is a nonsmoker, nondrinker, uses no illicit drugs. PERTINENT HISTORY: The patient in 2015 was undergoing a gastric bypass for obesity. Following induction of anesthesia and the initial incisions, the patient according to her narrative coded and had to be resuscitated. The operation was aborted. The patient subsequently had an AICD placed in 2022 for uncontrollable AFib. The patient's pertinent history other than the outlined is devoid of significant contributory factors to her current problem. PHYSICAL EXAMINATION: GENERAL: She is an obese female, no acute distress. HEENT: Pupils are equal, round, react to light equally. Sclerae nonicteric. Extraocular motion is intact. Uvula midline. Trachea midline. Carotids are full without bruits. Jugular veins are collapsed. HEART: Regular rate and rhythm without murmur or gallop. ABDOMEN: Tender in the right upper quadrant with guarding, slight minimal rebound tenderness. No palpable masses or organomegalies. There is no CVA tenderness. EXTREMITIES: No peripheral vascular insufficiency. No venous stasis. LABORATORY EVALUATION: The patient's leukocytosis of 10.9, is without a left shift. The patient's platelet count is normal at 199. The patient's coag studies are pending. No test was done, will be ordered. The patient's chemistry is showing elevated AST and alkaline phosphatase and an elevated sugar. Otherwise, normal electrolytes, normal bilirubin. Lactic acid is 1.5 which is normal. The patient's imaging was done by means of an abdominal and CT of the pelvis. The patient's CT was done without oral or IV contrast and shows no evidence of bowel obstruction. No evidence of inflammatory changes. The CT was otherwise normal. Subsequent gallbladder ultrasound demonstrates multiple cholelithiasis and the common duct is reported as a normal size. DIAGNOSIS: Cholelithiasis, cholecystitis, biliary colic, morbid obesity, prior history of cardiac complications during surgery. The patient needs cardiac clearance. If that is rendered, the patient will undergo cholecystectomy, laparoscopic versus open cholecystectomy. Risks, potential complications were explained in detail. MD SKYLER Ponce/KANDI TID: [id number] RECEIPT: [id number]
[2024-10-14] MEDS: SODIUM CHLORIDE 0.9% 1,000 ML IV SCH (10:36)
[2024-10-14] MEDS: levoFLOXacin 500MG 100 ML IV SCH (10:36)
[2024-10-14 10:47] LABS: INR 1.13 (0.9-1.15); Partial Thromboplastin Time 24.5 SEC (24.5-34.5); Prothrombin Time 11.8 sec (9.3-11.8)
--- NOTE | 2024-10-14 14:46 | DVHINCON2 ---
Date Seen: Oct 14, 2024 Referring Physician ANTONIO Zambrano Reason for Consultation Cardiac risk stratification History of Present Illness This is a 49-year-old female patient who presents to emergency room with chief complaint of abdominal pain, nausea, and chills after eating dinner last night. She comes to the emergency room for further evaluation. Imaging has revealed cholelithiasis suggesting acute cholecystitis. Cardiology has been consulted at this time for cardiac risk stratification. Initial twelve lead electrocardiogram reveals normal sinus rhythm without any significant ST segment changes. The patient denies any cardiac symptoms. Significant past medical history includes congestive heart failure, cardiac arrest x2, atrial fibrillation with direct current cardioversion (takes amiodarone and Eliquis), presence of ICD (Medtronic), hyperlipidemia, and morbid obesity. The patient reports that the first time that she experienced cardiac arrest was in 2012 during gastric bypass procedure in which she was resuscitated. The 2nd event of cardiac arrest happened in 2022 while at home. According to her knowledge, she reports that she became unresponsive at home and her daughter began CPR and she was then taken to a local hospital where she underwent a coronary angiogram without catheter based intervention and an ICD was placed. The patient reports she has not had any other cardiac events after having the ICD implanted. Patient does not follow a full service vending driver in the outpatient setting at this time given that she recently moved to this area from [facility]. Past Medical History Past medical history reviewed. No other significant than mentioned above. Past Surgical History x2 Tonsillectomy D&C Family History: Diabetes mellitus G8 FATHER Hypertension G8 MOTHER G8 FATHER Thyroid disease G8 MOTHER Family History Family history reviewed. Social History Denies the use of tobacco, alcohol or illicit drugs. Allergies: Coded Allergies: Penicillins (Verified Allergy, Unknown, 03/26/24) Home Meds Active Scripts Ketorolac Tromethamine (Ophth) (Ketorolac Tromethamine) 0.5 % Jennifer, 1 DROP EACHEYE QID for 2 Days, #5 ML Prov:[facility] 05/23/24 Gentamicin Sulfate (Gentamicin Sulfate) 0.3 % Jennifer, 2 DROP EACHEYE QID for 7 Days, #5 ML 0 Refills Prov:BARBE,[facility] 05/23/24 Acetaminophen (Tylenol Extra Strength) 500 Mg Tab, 1000 MG PO Q6HP PRN, #30 TAB Prov:JOSE MAY MD 03/26/24 Dicyclomine Hcl (BENTYL CAPSULE) 10 Mg Cp, 2 CAP PO Q6HP PRN, #30 CAP 11 Refills Prov:JOSE MAY MD 03/26/24 Ondansetron Odt 4MG Tab (ZOFRAN PO) 4 Mg Tb, 4 MG PO TID PRN, #20 TAB ODT TAB-DISSOLVE IN MOUTH, THEN SWALLOW Prov:JOSE MAY MD 03/26/24 Ciprofloxacin Hcl (Cipro) 500 Mg Tab, 1 TAB PO BID for 10 Days, #20 TAB Prov:JOSE MAY MD 03/26/24 Reported Medications Apixaban Base (ELIQUIS) 5 Mg Tab, 5 MG PO BID, TAB 10/14/24 Amiodarone Hcl (Amiodarone Hcl) 200 Mg Tab, 200 MG PO DAILY for 30 Days 10/14/24 Metoprolol Tartrate (Metoprolol Tartrate) 100 Mg Tab, 100 MG PO DAILY for 30 Days, MG 10/14/24 Atorvastatin Calcium (Lipitor) 80 Mg Tab, 1 TAB PO DAILY, #30 TAB 5 Refills 10/14/24 Home Meds Home medications reviewed. Current Medications Current Medications Medications (Trade) Dose Ordered Sig/Prashant Route PRN Reason Start Time Stop Time Status Last Admin Hydralazine HCl (Apresoline Injection) 10 mg Q6HP PRN IV SBP>150 10/14/24 01:30 Levofloxacin/ Dextrose 100 ml @ 100 mls/hr DAILY IV 10/14/24 10:00 10/14/24 10:36 Metronidazole 100 ml @ 100 mls/hr Q8HR IV 10/14/24 06:00 Ondansetron HCl (Zofran) 4 mg Q4HP PRN IV NAUSEA / VOMITING 10/14/24 01:30 10/14/24 04:27 Morphine Sulfate 2 mg Q4HPRN PRN IV SEVERE PAIN (7-10 PAIN SCALE) 10/14/24 01:30 10/14/24 10:28 Sodium Chloride 1,000 ml @ 100 mls/hr Q10H IV 10/14/24 10:15 10/14/24 10:36 Review of Systems Constitutional: No symptom reported Ears, Nose, & Throat: No symptom reported Eyes: No symptom reported Neurological: No symptoms reported Pulmonary/Respiratory: No symptoms reported Cardiovascular: No symptom reported Gastrointestinal: Abdominal pain, nausea Genitourinary: No symptom reported Musculoskeletal: No symptom reported Skin: No symptom reported Psychiatric: No symptom reported Endocrine: No symptom reported Hematologic/Lymphatic: No symptom reported Vital Signs Vital Signs Date Time Temp Pulse Resp B/P (MAP) Pulse Ox O2 Delivery O2 Flow Rate FiO2 10/14/24 12:25 97.6 68 18 134/69 (90) 96 97.6 10/14/24 05:05 Room Air* 0 21 Physical Exam General Appearance: Cooperative. Morbidly obese Pulmonary/Respiratory: Clear, bilateral breaths sounds. Cardiovascular/Chest: Regular rate and rhythm. Peripheral Pulses: 2+ Radial (R). 2+ Radial (L). 2+ Pedal (R). 2+ Pedal (L) Abdominal Exam: Normal bowel sounds. Ankle Exam: Negative ankle edema Lower extremities: Negative lower extremity edema Neuro/Mental Status: A/OX4, coherent. Thoughts/Psych: Normal thought pattern. Appropriate mood and affect. Good judgment and insight. Appearance: No acute distress. Skin Exam: Normal inspection. Normal color. Warm and dry. Labs/Diagnostic Data Labs Test 10/14/24 10:28 10/14/24 09:00 10/13/24 19:50 10/13/24 19:33 Range/Units Beta HCG, Quantitative 0.8 L 1.5-4.2 mIU/mL Prothrombin Time 11.8 9.3-11.8 sec Prothrombin Time INR 1.13 0.9-1.15 Activated Partial Thromboplast Time 24.5 24.5-34.5 SEC White Blood Count 10.9 H 4.4-10.8 10^3/uL Red Blood Count 5.51 H 4.0-5.20 10^6/uL Hemoglobin 16.0 12.2-16.2 g/dL Hematocrit 48.5 H 36.0-46.0 % Mean Corpuscular Volume 88.1 80.0-100.0 fL Mean Corpuscular Hemoglobin 29.1 28.0-32.0 pg Mean Corpuscular Hemoglobin Concent 33.1 32.0-36.0 g/dL Red Cell Distribution Width 14.0 11.8-14.3 % Platelet Count 199 140-450 10^3/uL Mean Platelet Volume 9.7 6.9-10.8 fL Neutrophils (%) (Auto) 74.8 37.0-80.0 % Lymphocytes (%) (Auto) 18.6 10.0-50.0 % Monocytes (%) (Auto) 4.9 0.0-12.0 % Eosinophils (%) (Auto) 1.4 0.0-7.0 % Basophils (%) (Auto) 0.3 0.0-2.0 % Neutrophils # (Auto) 8.2 1.6-8.6 10 ^3/uL Lymphocytes # (Auto) 2.0 0.4-5.4 10 ^3/uL Monocytes # (Auto) 0.5 0-1.3 10 ^3/uL Eosinophils # (Auto) 0.2 0-0.8 10 ^3/uL Basophils # (Auto) 0 0-0.2 10 ^3/uL Nucleated Red Blood Cells 0.1 % Sodium Level 139 136-145 mmol/L Potassium Level 4.0 3.5-5.1 mmol/L Chloride Level 105 98-107 mmol/L Carbon Dioxide Level 27 20-31 mmol/L Anion Gap 7 5-15 Blood Urea Nitrogen 14 9-23 mg/dL Creatinine 0.89 0.550-1.02 mg/dL Glomerular Filtration Rate Calc 80 >90 mL/min BUN/Creatinine Ratio 15.7 10.0-20.0 Serum Glucose 143 H 74-106 mg/dL Lactic Acid Level 1.5 0.4-2.0 mmol/L Calcium Level 9.8 8.7-10.4 mg/dL Total Bilirubin 0.8 0.2-1.0 mg/dL Aspartate Amino Transferase (AST) 66 H 13-40 U/L Alanine Aminotransferase (ALT) 36 7-40 U/L Alkaline Phosphatase 119 H 46-116 U/L Total Protein 7.9 5.7-8.2 g/dL Albumin 4.8 3.2-4.8 g/dL Lipase 43 12-53 U/L Urine Color Yellow Yellow Urine Clarity Clear Clear Urine pH 5.5 5.0-9.0 Urine Specific [place] 1.024 1.001-1.035 Urine Protein Trace H Negative Urine Ketones Negative Negative Urine Blood 3+ H Negative /uL Urine Nitrite Negative Negative Urine Bilirubin Negative Negative Urine Urobilinogen Normal Negative mg/dL Urine Leukocyte Esterase Negative Negative /uL Urine RBC 40 0 - 4 /hpf Urine Microscopic WBC 4 0-5 /HPF Urine Squamous Epithelial Cells Few <5 /hpf Urine Bacteria Few H None Seen /hpf Urine Mucus Few None Seen Urine Glucose Normal Normal mg/dL Assessment Preprocedural cardiovascular examination Chronic compensated HFpEF, NYHA class II Cardiac arrest x2 Paroxysmal atrial fibrillation with direct current cardioversion (on amiodarone and Eliquis) Presence of ICD (Medtronic) Hyperlipidemia Morbid obesity Plan/Recommendation We will continue following plan/recommendations (Dr. Springer): Case discussed with . Transthoracic echocardiogram reveals EF 60%. Revised cardiac risk index (Edgardo criteria): 1 point (6.0% risk of major cardiac event). Latest chest x-ray reveals no acute disease. The patient has an underlying history of congestive heart failure, without any cardiac symptoms at this time. Prior to admission, the patient reports a good functional capacity. Per Cardiology standpoint, the patient is at a moderate risk for moderate risk surgery. There is no additional cardiac workup indicated prior to surgery. Thank you for allowing us to care for this patient. Please call with any questions or concerns. Critical care time spent: 44 minutes This medical document was created using an electronic medical record system with voice recognition software and computerized dictation system. Although this document has been carefully reviewed, there might still be some phonetic and typographical errors. Occasional wrong-word or ``sound-alike substitutions may have occurred due to the inherent limitations of voice recognition software. These areas are purely typographical due to imperfections of the software programs and do not reflect any compromise in the patient's medical care. Please read the chart carefully and recognize, using context, where these substitutions have occurred. Plan discussed with: Patient NYHA Physical activity limitations: Class2(Slight)fatigue,sob (palpitatns, angina w activityv) Date of Service: Oct 14, 2024 Billing Provider: LYNNE MARTINES Cardiology Common Codes: [id number] INP/OBS CARE (High) Cardiology Consultation Codes: [id number] CONSULT <45MIN LYNNE MARTINES Oct 14, 2024 14:46
--- NOTE | 2024-10-14 15:44 | DVHPNRES ---
Progress Note Date Seen: Oct 14, 2024 Resident Creating Document: LUNA FINCH RESIDENT Medical Necessity Reason Pt with a Central, PICC or Fol: No Subjective Review of Systems Patient seen and examined at bedside. No new complaints. Patient is NPO, no nausea or vomiting. No abdominal pain. Objective vital signs Vital Sign Date Time Temp Pulse Resp B/P (MAP) Pulse Ox O2 Delivery O2 Flow Rate FiO2 10/14/24 12:25 97.6 68 18 134/69 (90) 96 97.6 10/14/24 08:00 Room Air* 0 21 Total Intake and Output 10/13/24 10/13/24 10/14/24 15:00 23:00 07:00 Intake Total 270 ml Balance 270 ml medications Current Medications Medications Dose Ordered Sig/Prashant Route Start Time Stop Time Status Last Admin Dose Admin Hydralazine HCl 10 mg Q6HP PRN IV 10/14/24 01:30 Levofloxacin/ Dextrose 100 ml @ 100 mls/hr DAILY IV 10/14/24 10:00 10/14/24 10:36 100 MLS/HR Metronidazole 100 ml @ 100 mls/hr Q8HR IV 10/14/24 06:00 10/14/24 15:08 100 MLS/HR Ondansetron HCl 4 mg Q4HP PRN IV 10/14/24 01:30 10/14/24 04:27 4 MG Morphine Sulfate 2 mg Q4HPRN PRN IV 10/14/24 01:30 10/14/24 10:28 2 MG Sodium Chloride 1,000 ml @ 100 mls/hr Q10H IV 10/14/24 10:15 10/14/24 10:36 100 MLS/HR Pantoprazole Sodium 40 mg DAILY IV 10/15/24 10:00 Examination General Appearance: Cooperative. Well developed. Well nourished. NAD Head Exam: Normal inspection Neck Exam: Normal inspection. Non-tender. Normal alignment Pulmonary/Respiratory: Chest non-tender. Clear bilateral breath sounds Cardiovascular/Chest: Regular rate and rhythm. No murmurs. No JVD. Peripheral Pulses: 2+ Radial (R). 2+ Radial (L). 2+ Pedal (R). 2+ Pedal (L) Abdominal Exam: Normal bowel sounds. Soft. Nontender. No hepatospenomegaly. No masses Ankle Exam: Negative ankle edema Lower extremities: Negative lower extremity edema Neuro/Mental Status: A&O x4. Coherent Thoughts/Psych: Normal thought pattern. Appropriate mood and affect. Good judgement and insight Appearance: In no acute distress Skin Exam: Normal inspection. Normal color. Warm. Dry laboratory and microbiology Laboratory Tests 10/13/24 19:50 Test 10/13/24 19:50 Range/Units Serum Glucose 143 H 74-106 mg/dL Problem List/Assessment/Plan Problem List/Assessment/Plan Acute cholecystitis with cholelithiasis History of cardiac arrest * 3 ( 2012, May 2023, June 2023) Status post ICD insertion Medtronic Morbid obesity Hyperlipidemia ? CHF Plan/recommendation -pending echocardiogram, requiring cardiac clearance. Currently NPO possible laparoscopic cholecystectomy tomorrow a.m.. -surgical consultation -IV fluid -IV antibiotic with levofloxacin and metronidazole -PUD prophylaxis with Protonix Code status discussed greater than 22 minutes. Full code status. Plan discussed with Dr Henry Plan discussed with: Patient, Spouse, Other (RN) My Orders My Orders Orders - LUNA FINCH Procedure Category Date Status Time Pantoprazole PHA 10/14/24 In Process (Protonix) 15:45 Pantoprazole PHA 10/15/24 In Process (Protonix) 10:00 Date of Service: Oct 14, 2024 Billing Provider: YONG HENRY MD Common Visit Codes: [id number] INP/OBS CARE(HIGH) LUNA FINCH Oct 14, 2024 15:44 YONG HENRY MD Oct 25, 2024 20:38
--- NOTE | 2024-10-14 18:05 | DVHSR ---
APPROVED REPORT EXAM: Two-dimensional and M-mode echocardiogram with Doppler and color Doppler. Blood Pressure: 118/55 mmHg INDICATION Pre-Op Surgery/Intervention Pacemaker: RISK [employer]CTORS Height: 5'2", Weight: 315 DIMENSIONS LVDd5.4 (3.8-5.7cm)LA (2D)4.0 (1.9-4.0cm)Aortic Root2.6 (2.0-3.7cm) LVDs3.7 (2.5-4.0cm)LA (MM) (1.9-4.0cm)Aortic Cusp Exc (1.5-2.0cm) EF (%) 58.0 (55-70%)Rt. Atrium4.8 (1.9-4.0cm)Asc. Aorta3.1 cm IVSd1.1 (0.7-1.1cm)RV (D)3.8 (1.8-2.4cm) PWd1.1 (0.7-1.1cm) Mitral Valve MitralMitral Stenosis E wave0.86m/sMV Mean GR.mmHg A wave0.74m/sMV Peak GR.mmHg E/A ratio1.22D MVAcm2 DECEL [id number] 1/2 Timems Aortic Valve Aortic ValveAortic Stenosis V11.36m/Alina Mean GR.6mmHg V21.58m/Alina Peak GR.10mmHg LVOT Diameter2.2 (1.8-2.4cm)Doppler AVA3.27cm2 Pulmonic Valve V21.16m/s Tricuspid Valve TR Velocity2.54m/s [id number] Other Information Quality : Technically LimitedRhythm : Technically limited study due to body habitus. Conclusion Sinus rhythm. Biatrial enlargement. Root enlargement. Valves are normal. EF of 60% with normal RV function. Mild TR. No pericardial effusion masses or vegetations.
[2024-10-14] MEDS: PANTOPRAZOLE 40 MG/10 ML VIAL INJ IV ONE (18:31)
[2024-10-15] VITALS (7 sets, daily range): BP systolic 123–164; BP diastolic 48–88; PULSE 65–88; RESP 15–18; TEMP 97.6–98.5; O2SAT 94–97
[2024-10-15 06:09] LABS: Basophils # (auto) 0 10 ^3/uL (0-0.2); Basophils % (auto) 0.5 % (0.0-2.0); Eosinophils # (auto) 0.2 10 ^3/uL (0-0.8); Eosinophils % (auto) 2.6 % (0.0-7.0); Hematocrit 44.1 % (36.0-46.0); Hemoglobin 14.9 g/dL (12.2-16.2); Lymphocytes # (auto) 3.5 10 ^3/uL (0.4-5.4); Mean Corpuscular Hemoglobin 29.9 pg (28.0-32.0); Mean Corpuscular Hgb Conc. 33.7 g/dL (32.0-36.0); Mean Corpuscular Volume 88.6 fL (80.0-100.0); Monocytes # (auto) 0.7 10 ^3/uL (0-1.3); Monocytes % (auto) 6.9 % (0.0-12.0); Neutrophils # (auto) 5.3 10 ^3/uL (1.6-8.6); Nucleated Red Blood Cells % 0.1 %; Platelet Count (auto) 183 10^3/uL (140-450); Red Blood Cells 4.97 10^6/uL (4.0-5.20); Red Cell Distribution Width 13.9 % (11.8-14.3); White Blood Cell 9.8 10^3/uL (4.4-10.8)
[2024-10-15 06:34] LABS: Albumin 4.3 g/dL (3.2-4.8); Alkaline Phosphatase 90 U/L (46-116); Anion Gap 9 (5-15); BUN/Creatinine Ratio 21.1 (10.0-20.0); Blood Urea Nitrogen 15 mg/dL (9-23); Calcium 9.5 mg/dL (8.7-10.4); Carbon Dioxide 21 mmol/L (20-31); Glucose 87 mg/dL (74-106); Potassium 3.9 mmol/L (3.5-5.1); Sodium 139 mmol/L (136-145); Total Protein 6.9 g/dL (5.7-8.2)
[2024-10-15 06:36] LABS: Alanine Aminotransferase 63 U/L (7-40); Aspartate Aminotransferase 41 U/L (13-40); Bilirubin, Total 1.4 mg/dL (0.2-1.0); Chloride 109 mmol/L (98-107)
[2024-10-15] MEDS: LIDOCAINE W/ EPINEPHRINE 1% 20ML VIAL ONE (08:16)
[2024-10-15] MEDS: BUPIVACAINE HCL 0.25% P/F 10 ML VIAL ONE (08:16)
[2024-10-15] MEDS ORDERED: MIDAZOLAM HCL 2MG/2ML 2ml VIAL (1mg/ml) ONE (08:24)
[2024-10-15] MEDS ORDERED: fentaNYL CITRATE 100 MCG/2 ML VL ONE (08:24)
[2024-10-15] MEDS ORDERED: ROCURONIUM 10MG/ML 10ML VIAL IV ONE (08:31)
[2024-10-15] MEDS ORDERED: ONDANSETRON HCL 4 MG/2 ML VIAL ONE (08:32)
[2024-10-15] MEDS ORDERED: LIDOCAINE 2% (LOCAL ANESTH.) PF 5ml SDV ONE (08:32)
[2024-10-15] MEDS ORDERED: PROPOFOL 10 MG/ML 20 ML IV ONE (08:32)
[2024-10-15] MEDS: ceFAZolin 1GM/50ML 100 ML IV ONE (08:33)
[2024-10-15] MEDS ORDERED: NEOSTIGMINE 1 MG/ML INJ (10mg/10ML VIAL) ONE (09:42)
[2024-10-15] MEDS ORDERED: GLYCOPYRROLATE 0.2 MG/ML 1ML VIAL ONE (09:42)
[2024-10-15] MEDS ORDERED: HYDROmorphone HCL 2 MG/ML VL/or syr IV PRN (09:45)
[2024-10-15] MEDS: ONDANSETRON HCL 4 MG/2 ML VIAL IV ONE (09:45)
[2024-10-15] MEDS: ASPirin 81 mg TAB PO SCH (10:00)
[2024-10-15] MEDS: PANTOPRAZOLE 40 MG/10 ML VIAL INJ IV SCH (10:00)
[2024-10-15] MEDS: HYDROmorphone HCL 2 MG/ML VL/or syr ONE (10:18)
[2024-10-15] MEDS: HYDROmorphone HCL 2 MG/ML VL/or syr IV PRN (10:25)
[2024-10-15] MEDS: hydrALAZINE HCL 20 MG/ML VL ONE (10:38)
[2024-10-15] MEDS: hydrALAZINE HCL 20 MG/ML VL IV ONE ×2 (10:40→10:45)
--- NOTE | 2024-10-15 11:10 | DVHOP ---
DATE OF SURGERY: 10/15/2024 PREOPERATIVE DIAGNOSES: Cholelithiasis, cholecystitis. POSTOPERATIVE DIAGNOSES: Cholelithiasis, cholecystitis, morbid obesity. SURGEON: Jono Bro MD SCHOOL PSYCHOLOGIST: Bolivar Zambrano. ANESTHESIA: General endotracheal. ANESTHESIOLOGIST: Dr. Veliz. PROCEDURES: Laparoscopy, laparoscopic cholecystectomy. DESCRIPTION OF PROCEDURE: Under general endotracheal anesthesia with the patient's skin prepped and draped, supraumbilical incision was made and the extra length Veress needle utilized by the hanging drop technique in order to establish pneumoperitoneum to 15 mmHg pressure by insufflation with carbon dioxide. With the abdomen fully distended to 15 mmHg pressure, the extra-long trocars had to be utilized due to the patient's morbid obesity ____ trocars were utilized to the full extent of the length. A 5 mm port was inserted after the Veress needle was removed. Through this, a 0-degree viewing laparoscope was inserted and under direct vision, 5 mm and 10 mm ports inserted through the anterior axillary line at the level of the umbilicus and through the subxiphoid midline skin respectively. Instrumentation was introduced. Laparoscopy was hampered by the patient's morbid obesity; however, no obvious unexpected pathology was encountered with the exception of adhesions of the omentum to the anterior abdominal wall, which were left unattended as it did not obstruct view. The gallbladder was then placed on tension. The gallbladder was almost entirely intrahepatic which combined with the massively enlarged liver secondary to steatosis as well as the patient's morbid obesity made to the procedure very difficult. The gallbladder was placed on tension. The cystic duct and cystic artery were identified, circumferentially dissected and skeletonized and traced into the hepaticocystic triangle, so as to minimize the potential for inadvertent injury to the common bile duct. The patient's cystic duct and cystic artery were divided between metallic clips. The gallbladder was then resected from its liver bed by electrocautery and traction. The fully mobilized gallbladder was extracted from the peritoneal cavity by placement in a specimen extraction bag, which was withdrawn from the peritoneal cavity through the subxiphoid 10 mm port site. Subsequently, the right upper quadrant was profusely irrigated, the irrigant was aspirated. Hemostasis was meticulously accomplished found to be complete. At the termination of procedure, there was no evidence of bleeding from either the port sites or from the cholecystectomy site. Instrumentation was withdrawn. Pneumoperitoneum and irrigation was aspirated. Wounds were approximated using Monocryl sutures, Dermabond glue and Steri-Strips. The patient remained hemodynamically stable throughout the procedure, left the operating room following an accurate needle and sponge count. Repeat attempt at notifying the at [phone] were unsuccessful due to lack of answer. MD SKYLER Ponce/SHAUN TID: [id number] RECEIPT: [id number]
--- NOTE | 2024-10-15 14:45 | MEDREC ---
[facility] Intervention Section I [facility] Intervention: Dose optimization(PK/PD) (PLEASE CONSIDER INCREASE DOSE OF LEVOFLOXACIN TO 750 MG IV DAILY FOR EMPIRIC TREATMENT OF CHOLECYSTITIS) [facility] Oct 15, 2024 14:45
--- NOTE | 2024-10-15 15:35 | DVHPN2 ---
Assessment/Plan Assessment/Plan progress note 49 F with morbid obesity admitted for abdominal pain, found to have cholecystitis, seen by surgery seen today during rounds, s/p lap britney POD1, on clear liq physical exam aox3 clear breath sounds s1 s2 rrr no murmur abdomen appropriately tender morbidly obese le edema lasb ekg imaging reviewed assessment and plan Acute cholecystitis with cholelithiasis History of cardiac arrest * 3 ( 2012, May 2023, June 2023) Status post ICD insertion Medtronic Morbid obesity Hyperlipidemia HFpEF chornic diastolic HF class II POD1 s/p lap britney escalate diet as appropriate pain mgmt resume home meds dc fluid for now diet clear dvt ppx hold Plan discussed with: Patient Date of Service: Oct 15, 2024 Billing Provider: YONG HENRY MD Common Visit Codes: [id number] INP/OBS CARE(HIGH) YONG HENRY MD Oct 15, 2024 15:35
[2024-10-15] MEDS: D5W/SOD CHL 0.45%/KCL 20MEQ 1,000 ML IV SCH (17:41)
[2024-10-15] MEDS: METOPROLOL SUCCINATE XL 50 MG TAB PO SCH (17:44)
[2024-10-15] MEDS: AMIODARONE HCL 200 MG TAB PO SCH (17:45)
[2024-10-15] MEDS: ACETAMINOPHEN 325 MG TAB PO PRN (21:21)
[2024-10-16] VITALS (7 sets, daily range): BP systolic 112–166; BP diastolic 49–88; PULSE 60–70; RESP 17–20; TEMP 97.8–98.6; O2SAT 93–96
[2024-10-16 06:29] LABS: Basophils # (auto) 0 10 ^3/uL (0-0.2); Basophils % (auto) 0.3 % (0.0-2.0); Eosinophils # (auto) 0.1 10 ^3/uL (0-0.8); Hematocrit 42.9 % (36.0-46.0); Hemoglobin 14.4 g/dL (12.2-16.2); Lymphocytes % (auto) 27.4 % (10.0-50.0); Mean Corpuscular Hemoglobin 29.5 pg (28.0-32.0); Mean Corpuscular Hgb Conc. 33.5 g/dL (32.0-36.0); Mean Corpuscular Volume 88.1 fL (80.0-100.0); Monocytes # (auto) 0.8 10 ^3/uL (0-1.3); Monocytes % (auto) 7.4 % (0.0-12.0); Neutrophils % (auto) 63.9 % (37.0-80.0); Nucleated Red Blood Cells % 0.1 %; Platelet Count (auto) 180 10^3/uL (140-450); Red Blood Cells 4.87 10^6/uL (4.0-5.20); Red Cell Distribution Width 13.7 % (11.8-14.3); White Blood Cell 10.9 10^3/uL (4.4-10.8)
[2024-10-16 06:36] LABS: Chloride 106 mmol/L (98-107); Potassium 3.6 mmol/L (3.5-5.1); Sodium 141 mmol/L (136-145)
[2024-10-16 06:37] LABS: Anion Gap 8 (5-15); Calcium 9.7 mg/dL (8.7-10.4); Carbon Dioxide 27 mmol/L (20-31)
[2024-10-16 06:42] LABS: BUN/Creatinine Ratio 10.4 (10.0-20.0); Glucose 98 mg/dL (74-106)
[2024-10-16 06:43] LABS: Blood Urea Nitrogen 8 mg/dL (9-23)
--- NOTE | 2024-10-16 11:46 | DVH ---
Procedure: NM NM HIDA SCAN Exam Date: 10/14/2024 08:06 AM Clinical History: cholecystitis Comparison Study: Ultrasound dated 10/13/2024 Technique: Following the intravenous administration of 6 mCi of technetium 99m labeled Choletec a rig ht lateral images obtained after 65 minutes. Findings: Single right lateral the abdomen fraying radiotracer in gallbladder lumen. Activity seen in the bowel . Impression: 1. The cystic duct is patent. Patency of CBD can not be confirmed the study activity seen in the navarro l. Recommend follow-up 4 hour delay scan.
--- NOTE | 2024-10-16 12:10 | DVHPN2 ---
Progress Note Date Seen: Oct 16, 2024 Medical Necessity Reason Pt with a Central, PICC or Fol: No Objective vital signs Vital Sign Date Time Temp Pulse Resp B/P (MAP) Pulse Ox O2 Delivery O2 Flow Rate FiO2 10/16/24 10:12 61 120/72 10/16/24 10:12 20 10/16/24 09:00 98.0 96 98.0 10/16/24 08:00 Room Air* 0 21 Total Intake and Output 10/15/24 10/15/24 10/16/24 15:00 23:00 07:00 Intake Total 290 ml 1250 ml Balance 290 ml 1250 ml medications Current Medications Medications Dose Ordered Sig/Prashant Route Start Time Stop Time Status Last Admin Dose Admin Hydralazine HCl 10 mg Q6HP PRN IV 10/14/24 01:30 Levofloxacin/ Dextrose 100 ml @ 100 mls/hr DAILY IV 10/14/24 10:00 10/16/24 10:13 100 MLS/HR Metronidazole 100 ml @ 100 mls/hr Q8HR IV 10/14/24 06:00 10/16/24 05:58 100 MLS/HR Ondansetron HCl 4 mg Q4HP PRN IV 10/14/24 01:30 10/14/24 04:27 4 MG Morphine Sulfate 2 mg Q4HPRN PRN IV 10/14/24 01:30 10/16/24 10:12 2 MG Pantoprazole Sodium 40 mg DAILY IV 10/15/24 10:00 10/16/24 10:12 40 MG Aspirin 81 mg DAILY PO 10/15/24 10:00 10/16/24 10:12 81 MG Potassium Chloride/Dextrose/ Sod Cl 1,000 ml @ 100 mls/hr Q10H IV 10/15/24 09:45 10/16/24 05:59 100 MLS/HR Metoprolol Succinate 100 mg DAILY PO 10/15/24 16:06 10/16/24 10:12 100 MG Amiodarone HCl 200 mg DAILY PO 10/15/24 16:05 10/16/24 10:12 200 MG Acetaminophen 325 mg Q6HP PRN PO 10/15/24 21:15 10/15/24 21:21 325 MG laboratory and microbiology Laboratory Tests 10/16/24 06:00 Test 10/16/24 06:00 Range/Units Serum Glucose 98 74-106 mg/dL Problem List/Assessment/Plan Problem List/Assessment/Plan 10/16/24 feels "lots of pain" but improved over yesterday, abdomen appropriately tender, wounds clean and well approximated, Labs reviewed, bilirubin slightly elevated, will re check tomorrow Plan discussed with: Patient ERIC BENEDICT MD Oct 16, 2024 12:10
--- NOTE | 2024-10-16 12:45 | DVHPNRES ---
Progress Note Date Seen: Oct 16, 2024 Resident Creating Document: LUNA FINCH RESIDENT Medical Necessity Reason Pt with a Central, PICC or Fol: No Subjective Review of Systems Patient seen and examined at bedside Status post cholecystectomy Tolerating diet No bowel movement No abdominal pain or fever. Not able to pass gas till now Objective vital signs Vital Sign Date Time Temp Pulse Resp B/P (MAP) Pulse Ox O2 Delivery O2 Flow Rate FiO2 10/16/24 10:12 61 120/72 10/16/24 10:12 20 10/16/24 09:00 98.0 96 98.0 10/16/24 08:00 Room Air* 0 21 Total Intake and Output 10/15/24 10/15/24 10/16/24 15:00 23:00 07:00 Intake Total 290 ml 1250 ml Balance 290 ml 1250 ml medications Current Medications Medications Dose Ordered Sig/Prashant Route Start Time Stop Time Status Last Admin Dose Admin Hydralazine HCl 10 mg Q6HP PRN IV 10/14/24 01:30 Levofloxacin/ Dextrose 100 ml @ 100 mls/hr DAILY IV 10/14/24 10:00 10/16/24 10:13 100 MLS/HR Metronidazole 100 ml @ 100 mls/hr Q8HR IV 10/14/24 06:00 10/16/24 05:58 100 MLS/HR Ondansetron HCl 4 mg Q4HP PRN IV 10/14/24 01:30 10/14/24 04:27 4 MG Morphine Sulfate 2 mg Q4HPRN PRN IV 10/14/24 01:30 10/16/24 10:12 2 MG Pantoprazole Sodium 40 mg DAILY IV 10/15/24 10:00 10/16/24 10:12 40 MG Aspirin 81 mg DAILY PO 10/15/24 10:00 10/16/24 10:12 81 MG Potassium Chloride/Dextrose/ Sod Cl 1,000 ml @ 100 mls/hr Q10H IV 10/15/24 09:45 10/16/24 05:59 100 MLS/HR Metoprolol Succinate 100 mg DAILY PO 10/15/24 16:06 10/16/24 10:12 100 MG Amiodarone HCl 200 mg DAILY PO 10/15/24 16:05 10/16/24 10:12 200 MG Acetaminophen 325 mg Q6HP PRN PO 10/15/24 21:15 10/15/24 21:21 325 MG Examination General Appearance: Cooperative. Well developed. Well nourished. NAD Head Exam: Normal inspection Neck Exam: Normal inspection. Non-tender. Normal alignment Pulmonary/Respiratory: Chest non-tender. Clear bilateral breath sounds Cardiovascular/Chest: Regular rate and rhythm. No murmurs. No JVD. Peripheral Pulses: 2+ Radial (R). 2+ Radial (L). 2+ Pedal (R). 2+ Pedal (L) Abdominal Exam: Normal bowel sounds. Soft. Nontender. No hepatospenomegaly. No masses Ankle Exam: Negative ankle edema Lower extremities: Negative lower extremity edema Neuro/Mental Status: A&O x4. Coherent Thoughts/Psych: Normal thought pattern. Appropriate mood and affect. Good judgement and insight Appearance: In no acute distress Skin Exam: Normal inspection. Normal color. Warm. Dry laboratory and microbiology Laboratory Tests 10/16/24 06:00 Test 10/16/24 06:00 Range/Units Serum Glucose 98 74-106 mg/dL Microbiology Date/Time Source Procedure Growth Status 10/13/24 20:30 Blood Blood Culture - Preliminary NO GROWTH AFTER 48 HOURS OF INCUBATION. Resulted Problem List/Assessment/Plan Problem List/Assessment/Plan Acute cholecystitis with cholelithiasis History of cardiac arrest * 3 ( 2012, May 2023, June 2023) Status post ICD insertion Medtronic Morbid obesity Hyperlipidemia Chronic HFpEF Plan/recommendation -status post cholecystectomy, no complication. Tolerating diet. Advanced as per toleration. -continue IV antibiotic with levofloxacin and metronidazole. -discontinued IV fluid -resume home medication given underlying cardiac El arrhythmias: Amiodarone and metoprolol. -PUD prophylaxis with Protonix -patient is ambulatory Code status discussed greater than 22 minutes. Full code status. Plan discussed with Dr Henry Plan discussed with: Patient, Other Date of Service: Oct 16, 2024 Billing Provider: YONG HENRY MD Common Visit Codes: [id number] INP/OBS CARE(HIGH) LUNA FINCH RESIDENT Oct 16, 2024 12:45 YONG HENRY MD Oct 25, 2024 20:59
[2024-10-17] VITALS (9 sets, daily range): BP systolic 127–163; BP diastolic 60–90; PULSE 58–70; RESP 16–21; TEMP 97.4–98.6; O2SAT 94–98
[2024-10-17 07:15] LABS: Basophils # (auto) 0 10 ^3/uL (0-0.2); Basophils % (auto) 0.4 % (0.0-2.0); Eosinophils # (auto) 0.2 10 ^3/uL (0-0.8); Hematocrit 38.6 % (36.0-46.0); Hemoglobin 13.1 g/dL (12.2-16.2); Lymphocytes # (auto) 3.2 10 ^3/uL (0.4-5.4); Lymphocytes % (auto) 27.9 % (10.0-50.0); Mean Corpuscular Hemoglobin 30.2 pg (28.0-32.0); Mean Corpuscular Hgb Conc. 33.8 g/dL (32.0-36.0); Mean Corpuscular Volume 89.3 fL (80.0-100.0); Monocytes # (auto) 0.9 10 ^3/uL (0-1.3); Neutrophils % (auto) 61.7 % (37.0-80.0); Platelet Count (auto) 158 10^3/uL (140-450); Red Blood Cells 4.33 10^6/uL (4.0-5.20); Red Cell Distribution Width 13.5 % (11.8-14.3); White Blood Cell 11.4 10^3/uL (4.4-10.8)
[2024-10-17 07:23] LABS: Alanine Aminotransferase 37 U/L (7-40); Alkaline Phosphatase 66 U/L (46-116); Anion Gap 7 (5-15); BUN/Creatinine Ratio 13.3 (10.0-20.0); Blood Urea Nitrogen 10 mg/dL (9-23); Calcium 9.2 mg/dL (8.7-10.4); Carbon Dioxide 26 mmol/L (20-31); Chloride 107 mmol/L (98-107); Glucose 95 mg/dL (74-106); Potassium 3.8 mmol/L (3.5-5.1); Sodium 140 mmol/L (136-145); Total Protein 6.4 g/dL (5.7-8.2)
[2024-10-17 07:24] LABS: Albumin 3.9 g/dL (3.2-4.8); Aspartate Aminotransferase 26 U/L (13-40); Bilirubin, Total 1.1 mg/dL (0.2-1.0)
--- NOTE | 2024-10-17 10:06 | DVHPN2 ---
Progress Note Date Seen: Oct 17, 2024 Medical Necessity Reason Pt with a Central, PICC or Fol: No Objective vital signs Vital Sign Date Time Temp Pulse Resp B/P (MAP) Pulse Ox O2 Delivery O2 Flow Rate FiO2 10/17/24 09:10 58 127/69 10/17/24 08:43 97.8 17 96 97.8 10/17/24 08:00 Room Air* 0 21 Total Intake and Output 10/16/24 10/16/24 10/17/24 15:00 23:00 07:00 Intake Total 100 ml 300 ml 250 ml Balance 100 ml 300 ml 250 ml medications Current Medications Medications Dose Ordered Sig/Prashant Route Start Time Stop Time Status Last Admin Dose Admin Hydralazine HCl 10 mg Q6HP PRN IV 10/14/24 01:30 Levofloxacin/ Dextrose 100 ml @ 100 mls/hr DAILY IV 10/14/24 10:00 10/17/24 09:10 100 MLS/HR Metronidazole 100 ml @ 100 mls/hr Q8HR IV 10/14/24 06:00 10/17/24 05:24 100 MLS/HR Ondansetron HCl 4 mg Q4HP PRN IV 10/14/24 01:30 10/14/24 04:27 4 MG Morphine Sulfate 2 mg Q4HPRN PRN IV 10/14/24 01:30 10/17/24 06:40 2 MG Pantoprazole Sodium 40 mg DAILY IV 10/15/24 10:00 10/17/24 09:09 40 MG Aspirin 81 mg DAILY PO 10/15/24 10:00 10/17/24 09:10 81 MG Potassium Chloride/Dextrose/ Sod Cl 1,000 ml @ 100 mls/hr Q10H IV 10/15/24 09:45 10/16/24 17:48 100 MLS/HR Metoprolol Succinate 100 mg DAILY PO 10/15/24 16:06 10/16/24 10:12 100 MG Amiodarone HCl 200 mg DAILY PO 10/15/24 16:05 10/17/24 09:09 200 MG Acetaminophen 325 mg Q6HP PRN PO 10/15/24 21:15 10/17/24 04:29 325 MG laboratory and microbiology Laboratory Tests 10/17/24 06:09 Test 10/17/24 06:09 Range/Units Serum Glucose 95 74-106 mg/dL Problem List/Assessment/Plan Problem List/Assessment/Plan 10/16/24 feels "lots of pain" but improved over yesterday, abdomen appropriately tender, wounds clean and well approximated, Labs reviewed, bilirubin slightly elevated, will re check tomorrow 10/17/24 improving, bilirubin trending down, passing flatus, abdomen appropriately tender,wounds clean an well approximated. advance diet . cleared for discharge to return tto see me in two weeks, may shower after 72 hours Plan discussed with: Patient Dietary Evaluation Review Comments: 1) Initiate Ensure Clear qd d/t decreased appetite. Encourage optimal PO intake 2) [facility] when medically feasible, pending DIGITAL FIELD SERVICE TECHNICIAN approval 3) Refer to outpatient RD/[facility] for weight management 4) Follow-up with cardiology 5) Continue to monitor I&O, labs, and skin integrity Expected Outcomes/Goals: 1) appetite and labs to improve 2) diet to advance 3) f/u in 2-3 days ERIC BENEDICT MD Oct 17, 2024 10:06
--- NOTE | 2024-10-17 13:37 | DVHPNRES ---
Progress Note Date Seen: Oct 17, 2024 Resident Creating Document: LUNA FINCH RESIDENT Medical Necessity Reason Pt with a Central, PICC or Fol: No Subjective Review of Systems no new complains feels tired lower ext pain no bowel movement Objective vital signs Vital Sign Date Time Temp Pulse Resp B/P (MAP) Pulse Ox O2 Delivery O2 Flow Rate FiO2 10/17/24 13:01 66 169/83 10/17/24 12:05 18 10/17/24 08:43 97.8 96 97.8 10/17/24 08:00 Room Air* 0 21 Total Intake and Output 10/16/24 10/16/24 10/17/24 15:00 23:00 07:00 Intake Total 100 ml 300 ml 250 ml Balance 100 ml 300 ml 250 ml medications Current Medications Medications Dose Ordered Sig/Prashant Route Start Time Stop Time Status Last Admin Dose Admin Hydralazine HCl 10 mg Q6HP PRN IV 10/14/24 01:30 Levofloxacin/ Dextrose 100 ml @ 100 mls/hr DAILY IV 10/14/24 10:00 10/17/24 09:10 100 MLS/HR Metronidazole 100 ml @ 100 mls/hr Q8HR IV 10/14/24 06:00 10/17/24 13:02 100 MLS/HR Ondansetron HCl 4 mg Q4HP PRN IV 10/14/24 01:30 10/14/24 04:27 4 MG Morphine Sulfate 2 mg Q4HPRN PRN IV 10/14/24 01:30 10/17/24 11:35 2 MG Pantoprazole Sodium 40 mg DAILY IV 10/15/24 10:00 10/17/24 09:09 40 MG Aspirin 81 mg DAILY PO 10/15/24 10:00 10/17/24 09:10 81 MG Metoprolol Succinate 100 mg DAILY PO 10/15/24 16:06 10/17/24 13:01 100 MG Amiodarone HCl 200 mg DAILY PO 10/15/24 16:05 10/17/24 09:09 200 MG Acetaminophen 325 mg Q6HP PRN PO 10/15/24 21:15 10/17/24 04:29 325 MG Examination General Appearance: Cooperative. Well developed. Well nourished. NAD Head Exam: Normal inspection Neck Exam: Normal inspection. Non-tender. Normal alignment Pulmonary/Respiratory: Chest non-tender. Clear bilateral breath sounds Cardiovascular/Chest: Regular rate and rhythm. No murmurs. No JVD. Peripheral Pulses: 2+ Radial (R). 2+ Radial (L). 2+ Pedal (R). 2+ Pedal (L) Abdominal Exam: Normal bowel sounds. Soft. Nontender. No hepatospenomegaly. No masses Ankle Exam: Negative ankle edema Lower extremities: Negative lower extremity edema Neuro/Mental Status: A&O x4. Coherent Thoughts/Psych: Normal thought pattern. Appropriate mood and affect. Good judgement and insight Appearance: In no acute distress Skin Exam: Normal inspection. Normal color. Warm. Dry laboratory and microbiology Laboratory Tests 10/17/24 06:09 Test 10/17/24 06:09 Range/Units Serum Glucose 95 74-106 mg/dL Microbiology Date/Time Source Procedure Growth Status 10/13/24 20:30 Blood Blood Culture - Preliminary NO GROWTH AFTER 72 HOURS OF INCUBATION. Resulted Problem List/Assessment/Plan Problem List/Assessment/Plan Acute cholecystitis with cholelithiasis History of cardiac arrest * 3 ( 2012, May 2023, June 2023) Status post ICD insertion Medtronic Morbid obesity Hyperlipidemia Chronic HFpEF Plan/recommendation -status post cholecystectomy, no complication. Tolerating diet. Advanced as per toleration. Still no bowel movement - physical therapy -continue IV antibiotic with levofloxacin and metronidazole. -discontinued IV fluid -resume home medication given underlying cardiac El arrhythmias: Amiodarone and metoprolol. -PUD prophylaxis with Protonix -patient is ambulatory Code status discussed greater than 22 minutes. Full code status. Plan discussed with Dr Henry Plan discussed with: Patient, Other (RN) Dietary Evaluation Review Comments: 1) Initiate Ensure Clear qd d/t decreased appetite. Encourage optimal PO intake 2) Advance to 60g [facility] cardiac diet when medically feasible, pending RADIOSONDE OPERATOR approval 3) Refer to outpatient RD/[facility] for weight management 4) Follow-up with cardiology 5) Continue to monitor I&O, labs, and skin integrity Expected Outcomes/Goals: 1) appetite and labs to improve 2) diet to advance 3) f/u in 2-3 days Date of Service: Oct 17, 2024 Billing Provider: YONG HENRY MD Common Visit Codes: [id number] INP/OBS CARE(HIGH) LUNA FINCH RESIDENT Oct 17, 2024 13:37 YONG HENRY MD Oct 25, 2024 21:05
[2024-10-18 01:00] VITALS: BP_SYST 131; BP_SYST 164; BP_DIAS 72; PULSE 62; RESP 16; TEMP 98.3; O2SAT 96
[2024-10-18 05:00] VITALS: BP 124/61; PULSE 65; RESP 16; TEMP 97.7; O2SAT 98
[2024-10-18 08:01] VITALS: RESP 19; O2SAT 95
[2024-10-18 09:20] VITALS: BP 142/74; PULSE 64; RESP 18; TEMP 98.2; O2SAT 95
[2024-10-18] MEDS ORDERED: LEVO750T40 PO (10:16)
[2024-10-18] MEDS ORDERED: MET500T PO (10:16)
[2024-10-18 10:49] VITALS: BP 142/74; PULSE 64; TEMP 36.8
[2024-10-18] MEDS: INFLUENZA TRIVALENT 2024-2025 0.5 ML INJ IM ONE (11:27)
--- NOTE | 2024-10-18 17:09 | DVHDSRES ---
Discharge Summary Date of Admission Resident Creating Document: LUNA FINCH RESIDENT Oct 14, 2024 at 01:30 Date of Discharge: Oct 18, 2024 Admitting Diagnosis Abdominal pain Labs/Diagnostic Data: Laboratory Results Test 10/17/24 06:09 10/14/24 10:28 10/14/24 09:00 10/13/24 19:50 White Blood Count 11.4 10^3/uL (4.4-10.8) Red Blood Count 4.33 10^6/uL (4.0-5.20) Hemoglobin 13.1 g/dL (12.2-16.2) Hematocrit 38.6 % (36.0-46.0) Mean Corpuscular Volume 89.3 fL (80.0-100.0) Mean Corpuscular Hemoglobin 30.2 pg (28.0-32.0) Mean Corpuscular Hemoglobin Concent 33.8 g/dL (32.0-36.0) Red Cell Distribution Width 13.5 % (11.8-14.3) Platelet Count 158 10^3/uL (140-450) Mean Platelet Volume 9.7 fL (6.9-10.8) Neutrophils (%) (Auto) 61.7 % (37.0-80.0) Lymphocytes (%) (Auto) 27.9 % (10.0-50.0) Monocytes (%) (Auto) 8.0 % (0.0-12.0) Eosinophils (%) (Auto) 2.0 % (0.0-7.0) Basophils (%) (Auto) 0.4 % (0.0-2.0) Neutrophils # (Auto) 7.0 10 ^3/uL (1.6-8.6) Lymphocytes # (Auto) 3.2 10 ^3/uL (0.4-5.4) Monocytes # (Auto) 0.9 10 ^3/uL (0-1.3) Eosinophils # (Auto) 0.2 10 ^3/uL (0-0.8) Basophils # (Auto) 0 10 ^3/uL (0-0.2) Nucleated Red Blood Cells 0.0 % Sodium Level 140 mmol/L (136-145) Potassium Level 3.8 mmol/L (3.5-5.1) Chloride Level 107 mmol/L (98-107) Carbon Dioxide Level 26 mmol/L (20-31) Anion Gap 7 (5-15) Blood Urea Nitrogen 10 mg/dL (9-23) Creatinine 0.75 mg/dL (0.550-1.02) Glomerular Filtration Rate Calc 98 mL/min (>90) BUN/Creatinine Ratio 13.3 (10.0-20.0) Serum Glucose 95 mg/dL (74-106) Calcium Level 9.2 mg/dL (8.7-10.4) Total Bilirubin 1.1 mg/dL (0.2-1.0) Aspartate Amino Transferase (AST) 26 U/L (13-40) Alanine Aminotransferase (ALT) 37 U/L (7-40) Alkaline Phosphatase 66 U/L (46-116) Total Protein 6.4 g/dL (5.7-8.2) Albumin 3.9 g/dL (3.2-4.8) Hemoglobin A1c 5.1 % A1C (<5.7) B-Type Natriuretic Peptide 21.17 pg/mL (0-100) Beta HCG, Quantitative 0.8 mIU/mL (1.5-4.2) Prothrombin Time 11.8 sec (9.3-11.8) Prothrombin Time INR 1.13 (0.9-1.15) Activated Partial Thromboplast Time 24.5 SEC (24.5-34.5) Lactic Acid Level 1.5 mmol/L (0.4-2.0) Lipase 43 U/L (12-53) Test 10/13/24 19:33 Urine Color Yellow (Yellow) Urine Clarity Clear (Clear) Urine pH 5.5 (5.0-9.0) Urine Specific [place] 1.024 (1.001-1.035) Urine Protein Trace (Negative) Urine Ketones Negative (Negative) Urine Blood 3+ /uL (Negative) Urine Nitrite Negative (Negative) Urine Bilirubin Negative (Negative) Urine Urobilinogen Normal mg/dL (Negative) Urine Leukocyte Esterase Negative /uL (Negative) Urine RBC 40 /hpf (0 - 4) Urine Microscopic WBC 4 /HPF (0-5) Urine Squamous Epithelial Cells Few /hpf (<5) Urine Bacteria Few /hpf (None Seen) Urine Mucus Few (None Seen) Urine Glucose Normal mg/dL (Normal) Other Laboratory Tests 10/17/24 06:09 Brief Hx & Hospital Course: Patient is a 49-year-old female with past medical history of hyperlipidemia, morbid obesity, HFpEF, multiple cardiac arrest with presence of ICD who presented to the hospital with a chief complaint of right upper quadrant abdominal pain. Patient was diagnosed with acute cholecystitis with cholelithiasis, patient underwent laparoscopic cholecystectomy without complication. Patient was advanced diet after procedure, tolerating diet. Patient was treated with IV antibiotic levofloxacin metronidazole and IV fluids. Given patient was cleared by surgeon for discharge, patient was advised to take oral antibiotic levofloxacin metronidazole and follow with primary care physician within one week and also advised to follow up with surgeon in outpatient setting. Patient advised to come to the hospital if symptoms worsens or any new symptoms including fever, abdominal pain, bleeding, any other symptoms. Condition at Discharge: Stable Final Diagnosis/Problems List Acute cholecystitis with cholelithiasis History of cardiac arrest * 3 ( 2012, May 2023, June 2023) Status post ICD insertion [employer] Morbid obesity Hyperlipidemia Chronic HFpEF Discharge Disposition: Home Discharge Instruct/Medications Diet: Regular Activity: No Restrictions, As Tolerated Follow Up/Referral: -follow up in [place] clinic, and your PCP in 2 weeks Medications: see prescription Discharge Statement: "Patient was advised to return to the ER or call 911 if any headaches, dizziness, shortness of breath, chest pain, abdominal pain, bleeding, fevers, or worsening of medical condition. Patient was counseled about treatment plan, medications, possible side effects, patientverbalized understanding. All questions were answered to the best of my ability. This discharge took greater then 30 minutes in planning, reviewing documentation, counseling the patient, and discussing with other team members." ASSESSMENT ASSESSMENT Assessment acute cholecystitis s/p cholecystectomy Date of Service: Oct 18, 2024 Billing Provider: ALFRED JAY MD Common Visit Codes: 37196-VPW/OBS DISCH DAY >30min LUNA FINCH RESIDENT Oct 18, 2024 17:09 ALFRED JAY MD Oct 18, 2024 18:35
== END 2024-10-18 13:20 | disposition home or self-care (01) | DRG 418 ==
LOC: ER 19:10 → OVERFLOW 10-14 01:30 → ER 10-14 01:36 → WEST WING 10-14 05:05
PROVIDERS: ADMIT Internal Medicine; ATTEND Emergency Medicine
PROC: 0FT44ZZ Resection of Gallbladder, Percutaneous Endoscopic Approach (ICD-10-PCS; principal; 2024-10-15 08:42)
DX: K80.62 Calculus of gallbladder and bile duct with acute cholecystitis without obstruction (principal); I50.32 Chronic diastolic (congestive) heart failure; Z68.43 Body mass index [BMI] 50.0-59.9, adult; D72.829 Elevated white blood cell count, unspecified; E66.01 Morbid (severe) obesity due to excess calories; E78.5 Hyperlipidemia, unspecified; E11.9 Type 2 diabetes mellitus without complications; K66.0 Peritoneal adhesions (postprocedural) (postinfection); I11.0 Hypertensive heart disease with heart failure; I48.0 Paroxysmal atrial fibrillation; Z95.810 Presence of automatic (implantable) cardiac defibrillator; Z98.891 History of uterine scar from previous surgery; Z88.0 Allergy status to penicillin; Z79.1 Long term (current) use of non-steroidal anti-inflammatories (NSAID); Z79.899 Other long term (current) drug therapy; Z79.2 Long term (current) use of antibiotics; Z98.84 Bariatric surgery status; Z83.3 Family history of diabetes mellitus; Z82.49 Family history of ischemic heart disease and other diseases of the circulatory system; Z79.01 Long term (current) use of anticoagulants; Z86.74 Personal history of sudden cardiac arrest
CPT/HCPCS: 36415; 71045; 74176; 76705; 78226; 80048; 80053; 81001; 82247; 83036; 83605; 83690; 83880; 84702; 85025; 85610; 85730; 86850; 86900; 86901; 87040; 93306; 96365; 96375; 97110; 97116; 97163; 97530; 99291; G0378; J1956; J2003; J2250; J2405; J2470; J2543; J2704; J3490; Q0162

== ENCOUNTER 2025-06-21 17:03 | Inpatient (IN) | payer MEDICAID, SELFPAY ==
[~2025-06-21] VITALS: Ht 157.5 cm; Wt 144.0 kg
[~2025-06-21 17:03] MED LIST changes: +AMIO200T33 PO; +APIX5TAB PO; +ATOR80TA PO; -CIPR-173 PO; -DICY10CA PO; -GENT0.3S10 EACHEYE; -KETO0.5S31 EACHEYE; +LEVO750T40 PO; +MET500T PO; +METO-159 PO; -ZOFR4T PO
--- NOTE | 2025-06-21 17:37 | ED.PDOC ---
History of Present Illness HPI Comments 49-year-old female who comes in with chief complaint of chest pain and palpitations. The patient states that the symptoms started approximately 1-1/2-2 hours ago. The patient does has a history of atrial fibrillation and checked her heart rate and it was over 125. She states that she has been AICD that has been said to 200. She states that during , her AICD went off over 40 times before she went to the hospital. The patient did have some chest pain this morning with some squeezing. There has no nausea. The patient is able to ambulate into the emergency department's without any difficulty. Chief Complaint: Palpitations Time Seen by MD: 17:08 Primary Care Provider: [facility] Reviewed Notes: Nurses Notes, Medications, Allergies (Allergies to penicillin) Allergies: Coded Allergies: Penicillins (Verified Allergy, Unknown, 03/26/24) Home Meds Active Scripts Metronidazole (Metronidazole) 500 Mg Tab, 500 MG PO TID for 4 Days, #12 TAB Prov:LUNA FINCH RESIDENT 10/18/24 Levofloxacin Hemihydrate (LEVOFLOXACIN) 750 Mg Tab, 1 TAB PO DAILY, #4 TAB Prov:LUNA FINCH RESIDENT 10/18/24 Acetaminophen (Tylenol Extra Strength) 500 Mg Tab, 1000 MG PO Q6HP PRN, #30 TAB Prov:JOSE MAY MD 03/26/24 Reported Medications Apixaban Base (ELIQUIS) 5 Mg Tab, 5 MG PO BID, TAB 10/14/24 Amiodarone Hcl (Amiodarone Hcl) 200 Mg Tab, 200 MG PO DAILY for 30 Days 10/14/24 Metoprolol Tartrate (Metoprolol Tartrate) 100 Mg Tab, 100 MG PO DAILY for 30 Days, MG 10/14/24 Atorvastatin Calcium (Lipitor) 80 Mg Tab, 1 TAB PO DAILY, #30 TAB 5 Refills 10/14/24 Information Source: Patient Mode of Arrival: Ambulatory Severity: Moderate Timing: Hours Duration: Since onset Prehospital treatment: None Associated signs and symptoms Palpitations with the diaphoresis and shortness a breath Past Medical History PAST MEDICAL HISTORY: AFIB, CHF, DM, HTN Past Medical History (Other): History of V-tach in the past Surgical History: Cholecystectomy, , Pacemaker, Tonsillectomy Surgical History (Other): AICD DISTRIBUTION ASSOCIATE History: Denies all DISTRIBUTION ASSOCIATE Hx Family History Family History: Family hx of DM, Family hx of HTN Social History Smoker: Non-Smoker Alcohol: Denies ETOH Use Drugs: Denies Drug Use Lives In: Home Constitutional: reports: diaphoresis; denies: chills, fatigue, fever, malaise, sweats, weakness, others EENTM: denies: blurred vision, double vision, ear bleeding, ear discharge, ear drainage, ear pain, ear ringing, eye pain, eye redness, hearing loss, mouth pain, mouth swelling, nasal discharge, nose bleeding, nose congestion, nose pain, photophobia, tearing, throat pain, throat swelling, voice changes, others Respiratory: reports: shortness of breath; denies: cough, hemoptysis, orthopnea, SOB at rest, SOB with excertion, stridor, wheezing, others Cardiovascular: reports: irregular heart beat, palpitations; denies: chest pain, dizzy spells, diaphoresis, Dyspnea on exertion, edema, left arm pain, lightheadedness, PND, syncope, others Gastrointestinal: denies: abdomen distended, abdominal pain, blood streaked bowels, constipated, diarrhea, dysphagia, difficulty swallowing, hematemesis, melena, nausea, poor appetite, poor fluid intake, rectal bleeding, rectal pain, vomiting, others Genitourinary: denies: abnormal vagina bleeding, burning, dyspareunia, dysuria, flank pain, frequency, hematuria, incontinence, pain, , vagina discharge, urgency, others Neurological: denies: dizziness, fainting, headache, left sided numbness, left sided weakness, numbness, paresthesia, pre-existing deficit, right sided numbness, right sided weakness, seizure, speech problems, tingling, tremors, weakness, others Musculoskeletal: denies: back pain, gout, joint pain, joint swelling, muscle pain, muscle stiffness, neck pain, others Integumetry: denies: bruises, change in color, change in hair/nails, dryness, laceration, lesions, lumps, rash, wounds, others Allergic/Immunocompromised: denies: Difficulty Healing, Frequent Infections, Hives, Itching, others Hematologic/Lymphatic: denies: anemia, blood clots, easy bleeding, easy bruising, swollen glands, others Endocrine: denies: excessive hunger, excessive sweating, excessive thirst, excessive urination, flushing, intolerance to cold, intolerance to heat, unexplained weight gain, unexplained weight loss, others Psychiatric: denies: anxiety, bipolar disorder, depression, hopeless, panic disorder, schizophrenia, sleepless, suicidal, others Physical Exam General Appearance: Moderate Distress, Obese HEENT: Normal ENT Inspection, Pharynx Normal, TMs Normal Neck: Full Range of Motion, Non-Tender, Normal, Normal Inspection Respiratory: Chest Non-Tender, Lungs Clear, No Accessory Muscle Use, No Respiratory Distress, Normal Breath Sounds Cardiovascular: Irregular, No Edema, No JVD, No Murmur, No Gallop, Tachycardia Breast Exam: Deferred Gastrointestinal: No Organomegaly, Non Tender, No Pulsatile Mass, Normal Bowel Sounds, Soft Genitalia: Deferred Pelvic: Deferred Rectal: Deferred Extremities: No calf tenderness, Normal capillary refill, Normal inspection, Normal range of motion, Non-tender, No pedal edema Musculoskeletal : Apperance: Normal Neurologic: Alert, subgrade tester II-XII nml as Tested, No Motor Deficits, Normal Affect, Normal Mood, No Sensory Deficits Cerebellar Function: Normal Reflexes: Normal Skin: Dry, Normal Color, Warm Lymphatic: No Adenopathy Was a procedure done? Was a procedure done?: No EKG EKG : Pulse Rate (adult): 127 [place]: Normal Cardiac Rhythm: Afib Block: None ST: Nonsp Differential Dx Considerations may include: Atrial fibrillation with rapid response, electrolyte imbalance, dehydration, ACS, NM X-Ray, Labs, Meds, VS Vital Signs Date Time Temp Pulse Resp B/P (MAP) Pulse Ox O2 Delivery O2 Flow Rate FiO2 06/21/25 17:50 146 06/21/25 17:37 127 06/21/25 17:20 12 06/21/25 17:10 98.4 109 15 153/83 100 98.4 Lab Test 06/21/25 18:24 06/21/25 17:26 Range/Units Troponin I High Sensitivity 28 30 </=34 ng/L White Blood Count 11.3 H 4.4-10.8 10^3/uL Red Blood Count 5.41 H 4.0-5.20 10^6/uL Hemoglobin 15.8 12.2-16.2 g/dL Hematocrit 47.4 H 36.0-46.0 % Mean Corpuscular Volume 87.6 80.0-100.0 fL Mean Corpuscular Hemoglobin 29.3 28.0-32.0 pg Mean Corpuscular Hemoglobin Concent 33.4 32.0-36.0 g/dL Red Cell Distribution Width 12.7 11.8-14.3 % Platelet Count 211 140-450 10^3/uL Mean Platelet Volume 10.0 6.9-10.8 fL Neutrophils (%) (Auto) 53.7 37.0-80.0 % Lymphocytes (%) (Auto) 33.9 10.0-50.0 % Monocytes (%) (Auto) 9.7 0.0-12.0 % Eosinophils (%) (Auto) 2.1 0.0-7.0 % Basophils (%) (Auto) 0.6 0.0-2.0 % Neutrophils # (Auto) 6.1 1.6-8.6 10 ^3/uL Lymphocytes # (Auto) 3.8 0.4-5.4 10 ^3/uL Monocytes # (Auto) 1.1 0-1.3 10 ^3/uL Eosinophils # (Auto) 0.2 0-0.8 10 ^3/uL Basophils # (Auto) 0.1 0-0.2 10 ^3/uL Nucleated Red Blood Cells 0.1 % Sodium Level 141 136-145 mmol/L Potassium Level 3.9 3.5-5.1 mmol/L Chloride Level 106 98-107 mmol/L Carbon Dioxide Level 27 20-31 mmol/L Anion Gap 8 5-15 Blood Urea Nitrogen 15 9-23 mg/dL Creatinine 0.90 0.550-1.02 mg/dL Glomerular Filtration Rate Calc 79 >90 mL/min BUN/Creatinine Ratio 16.7 10.0-20.0 Serum Glucose 98 74-106 mg/dL Calcium Level 9.7 8.7-10.4 mg/dL IV Hep-Lock was established The patient was given aspirin here in the emergency department's Patient was started on amiodarone as a bolus then an amiodarone drip The patient's CBC shows elevated blood cell count 11 three The rest of the CBC and chemistry panel are within normal limits Troponin level x2 is negative At this time the patient is being admitted the hospitalist The chest x-ray shows: IMPRESSION: Mild pulmonary vascular congestion / atypical pneumonia. The patient is being admitted at this time A cardiology consult obtained Images Reviewed?: Images reviewed and evaluated by me Time of 1ST Reevaluation: 17:36 Reevaluation 1ST: Unchanged Patient Education/Counseling: Diagnosis, Treatment, Prognosis Family Education/Counseling: No Family Present SEPSIS Sepsis Screen Date sepsis recognized/suspect: Jun 21, 2025 Time Sepsis recognized/suspect: 1711 Recent Procedure: No On Antibiotic Therapy: No Respiratory Rate >20: No Heart Rate >90: Yes Temp<36 C (96.8 F) or >38.3 C: No SBP <90 or MAP <65 mmHG: No New Acute Mental Status Change: No Is the patient on CPAP, BIPAP,: No Physician Orders Electrocardigram (06/21/25 20:14) Troponin-I Hs (06/21/25 20:14) Heplock Iv (06/21/25 17:24) Paper Stacker (06/21/25 17:24) Blood Pressure (06/21/25 17:24) Pulse Oximetry (06/21/25 17:24) Chest Two Views Routine (06/21/25 17:24) Urinalysis (06/21/25 17:24) Amiodarone 450mg/250ml Ae (Cordarone) (06/21/25 17:45) Vital Signs Date Time Temp Pulse Resp B/P (MAP) Pulse Ox O2 Delivery O2 Flow Rate FiO2 06/21/25 17:50 146 06/21/25 17:37 127 06/21/25 17:20 12 06/21/25 17:10 98.4 109 15 153/83 100 98.4 Laboratory Tests Test 06/21/25 17:26 White Blood Count 11.3 10^3/uL (4.4-10.8) H Departure 1 Departure Time of Disposition: 19:43 Impression: Primary Impression: Atrial fibrillation with rapid ventricular response Disposition: ADMITTED INPATIENT Admit to: Tele Condition: Fair Critical Care Note Critical Care Time?: Yes (45 min-critical care time only) Stability Stability form required: Yes Unstable for transfer: ICU, CCU, PCU, KARL (Intensive VS monitoring), ED Physician Assesment (Clinical assesment) Heart Score Heart Score: Heart Score Response (Comments) Value History Moderate Suspicious 1 EKG Repolarization Disturb 1 Age 45-64 1 Risk Factors 1 or 2 risk factors 1 Troponin Normal limit 0 Total 4 DARNELL ARCHIBALD MD Jun 21, 2025 17:37
[2025-06-21 17:45] LABS: Hematocrit 47.4 % (36.0-46.0); Hemoglobin 15.8 g/dL (12.2-16.2); Mean Corpuscular Hemoglobin 29.3 pg (28.0-32.0); Mean Corpuscular Volume 87.6 fL (80.0-100.0); Nucleated Red Blood Cells % 0.1 %
[2025-06-21 17:46] LABS: Anion Gap 8 (5-15); Carbon Dioxide 27 mmol/L (20-31); Chloride 106 mmol/L (98-107); Potassium 3.9 mmol/L (3.5-5.1); Sodium 141 mmol/L (136-145)
[2025-06-21 17:47] LABS: Calcium 9.7 mg/dL (8.7-10.4)
[2025-06-21 17:52] LABS: BUN/Creatinine Ratio 16.7 (10.0-20.0); Blood Urea Nitrogen 15 mg/dL (9-23); Glucose 98 mg/dL (74-106)
--- NOTE | 2025-06-21 18:04 | DVH ---
XY CHEST TWO VIEWS ROUTINE CLINICAL HISTORY: CP COMPARISON: None TECHNIQUE: Frontal and lateral view of the chest was obtained FINDINGS: Lines and Tubes: None Lungs: No focal consolidation. Mild interstitial prominence. Pleura: No effusion. No pneumothorax. Cardiomediastinal contours: Unremarkable. Left-sided approach single lead AICD terminating within the right ventricle. Bones: No acute osseous abnormality. IMPRESSION: Mild pulmonary vascular congestion / atypical pneumonia.
--- NOTE | 2025-06-21 18:38 | ECG ---
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
--- NOTE | 2025-06-21 18:38 | ECG ---
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
[2025-06-21] MEDS ORDERED: ONDANSETRON HCL 4 MG/2 ML VIAL IV PRN (20:00)
[2025-06-21] MEDS ORDERED: DEXTROSE (50%) 50ML SYRG IV PRN (20:00)
[2025-06-21 21:22] VITALS: PULSE 68; RESP 16; O2SAT 95
[2025-06-21] MEDS: APIXABAN 5 MG TAB PO SCH (22:00)
[2025-06-22] VITALS (7 sets, daily range): BP systolic 114–148; BP diastolic 44–76; PULSE 57–61; RESP 16–20; TEMP 97–98.2; O2SAT 96–100
--- NOTE | 2025-06-22 00:31 | DVHHP2 ---
History of Present Illness Reason for Visit: Palpitations History of Present Illness 49-year-old female presents for evaluation of palpitations. Patient reports a one day history of palpitations. Patient reports a history of AFib. She also has an AICD. She reports developing palpitations that lasted approximately 4 hours. On arrival to the emergency department patient was noted to be in AFib with RVR. Amiodarone drip was ordered and patient converted prior to administration of amiodarone. Currently she reports left-sided chest pressure. No other acute complaints reported. Past Medical History Hypertension, diabetes mellitus, CHF, AFib Past Surgical History , AICD, cholecystectomy, tonsillectomy Family History Noncontributory Smoke: No ALCOHOL: none Drugs: None Lives: with Family Review of Systems Review of Systems Review of systems are currently negative otherwise addressed in HPI. Allergies: Coded Allergies: Penicillins (Verified Allergy, Unknown, 03/26/24) Medications Current Medications Medications Dose Ordered Sig/Prashant Route Start Time Stop Time Status Last Admin Dose Admin Metoprolol Succinate 100 mg DAILY PO 06/22/25 10:00 Atorvastatin Calcium 80 mg HS PO 06/21/25 22:00 Apixaban 5 mg BID PO 06/21/25 22:00 Diagnostic Test (Pha) 1 strip ACHS 06/21/25 22:00 Insulin Human Regular ACHS SC 06/21/25 22:00 Dextrose 50 ml UD PRN IV 06/21/25 20:00 Ondansetron HCl 4 mg Q4HP PRN IV 06/21/25 20:00 Acetaminophen 650 mg Q6HP PRN PO 06/21/25 20:00 Nitroglycerin 0.4 mg Q5MINP PRN SL 06/21/25 20:00 Morphine Sulfate 2 mg Q30M PRN IV 06/21/25 20:00 Exam Vital Signs Vital Signs Date Time Temp Pulse Resp B/P (MAP) Pulse Ox O2 Delivery O2 Flow Rate FiO2 06/21/25 21:22 68 16 95 Room Air* 0 21 06/21/25 21:14 97.8 178/147 (157) 97.8 Exam Gen: 49-year-old female in mild distress, morbidly obese Skin: Warm, dry, normal color and texture, no rash. HEENT: Normocephalic atraumatic, mucous membranes moist and pink. Neck: Cervical and supraclavicular nodes normal without enlargement, trachea is midline, thyroid gland is normal without masses. Pulmonary: Clear to auscultation and percussion bilaterally. Cardiac: Regular rate and rhythm. No murmur Abdomen: Soft, nontender, nondistended, bowel sounds present all 4 quadrants, no guarding, no rigidity, no organomegaly. Extremities: No cyanosis, clubbing, no edema Neuro: Cranial nerves II through XII grossly intact, normal affect and speech, no focal motor deficits. Labs/Xrays ORDERING PHYSICIAN: LYNNE MARTINES PROCEDURE(s): ECIDC - ECHO 2D MODE CARDIAC DOP REASON: Evaluate cardiac function; preprocedural ORDER NUMBER(s): [id number], ACCESSION NUMBER(s): [id number] APPROVED REPORT EXAM: Two-dimensional and M-mode echocardiogram with Doppler and color Doppler. Blood Pressure: 118/55 mmHg INDICATION Pre-Op Surgery/Intervention Pacemaker: RISK FACTORS Height: 5'2", Weight: 315 DIMENSIONS LVDd 5.4 (3.8-5.7cm) LA (2D) 4.0 (1.9-4.0cm) Aortic Root 2.6 (2.0- 3.7cm) LVDs 3.7 (2.5-4.0cm) LA (MM) (1.9-4.0cm) Aortic Cusp Exc (1.5-2.0 cm) EF (%) 58.0 (55-70%) Rt. Atrium 4.8 (1.9-4.0cm) Asc. Aorta 3.1 cm IVSd 1.1 (0.7-1.1cm) RV (D) 3.8 (1.8-2.4cm) PWd 1.1 (0.7-1.1cm) Mitral Valve Mitral Mitral Stenosis E wave 0.86m/s MV Mean GR. mmHg A wave 0.74m/s MV Peak GR. mmHg E/A ratio 1.2 2D MVA cm2 DECEL Time 198ms PRESS 1/2 Time ms Aortic Valve Aortic Valve Aortic Stenosis V1 1.36m/s AO Mean GR. 6mmHg V2 1.58m/s AO Peak GR. 10mmHg LVOT Diameter 2.2 (1.8-2.4cm) Doppler MANAS 3.27cm2 Pulmonic Valve V2 1.16m/s Tricuspid Valve TR Velocity 2.54m/s RVSP 34mmHg Other Information Quality : Technically Limited Rhythm : Technically limited study due to body habitus. Conclusion Sinus rhythm. Biatrial enlargement. Root enlargement. Valves are normal. EF of 60% with normal RV function. Mild TR. No pericardial effusion masses or vegetations. SIGNED BY: TOMMIE SAMSON Sr., MD SIGNED DATE/TIME: 10/14/24 1593 ORDERING PHYSICIAN: DARNELL ARCHIBALD MD PROCEDURE(s): CXR2 - CHEST TWO VIEWS ROUTINE REASON: CP ORDER NUMBER(s): [id number], ACCESSION NUMBER(s): [id number] CHEST TWO VIEWS ROUTINE CLINICAL HISTORY: COMPARISON: None TECHNIQUE: Frontal and lateral view of the chest was obtained FINDINGS: Lines and Tubes: None Lungs: No focal consolidation. Mild interstitial prominence. Pleura: No effusion. No pneumothorax. Cardiomediastinal contours: Unremarkable. Left-sided approach single lead AICD terminating within the right ventricle. Bones: No acute osseous abnormality. IMPRESSION: Mild pulmonary vascular congestion / atypical pneumonia. Labs Test 06/21/25 20:21 06/21/25 17:26 Range/Units Troponin I High Sensitivity 25 </=34 ng/L White Blood Count 11.3 H 4.4-10.8 10^3/uL Red Blood Count 5.41 H 4.0-5.20 10^6/uL Hemoglobin 15.8 12.2-16.2 g/dL Hematocrit 47.4 H 36.0-46.0 % Mean Corpuscular Volume 87.6 80.0-100.0 fL Mean Corpuscular Hemoglobin 29.3 28.0-32.0 pg Mean Corpuscular Hemoglobin Concent 33.4 32.0-36.0 g/dL Red Cell Distribution Width 12.7 11.8-14.3 % Platelet Count 211 140-450 10^3/uL Mean Platelet Volume 10.0 6.9-10.8 fL Neutrophils (%) (Auto) 53.7 37.0-80.0 % Lymphocytes (%) (Auto) 33.9 10.0-50.0 % Monocytes (%) (Auto) 9.7 0.0-12.0 % Eosinophils (%) (Auto) 2.1 0.0-7.0 % Basophils (%) (Auto) 0.6 0.0-2.0 % Neutrophils # (Auto) 6.1 1.6-8.6 10 ^3/uL Lymphocytes # (Auto) 3.8 0.4-5.4 10 ^3/uL Monocytes # (Auto) 1.1 0-1.3 10 ^3/uL Eosinophils # (Auto) 0.2 0-0.8 10 ^3/uL Basophils # (Auto) 0.1 0-0.2 10 ^3/uL Nucleated Red Blood Cells 0.1 % Sodium Level 141 136-145 mmol/L Potassium Level 3.9 3.5-5.1 mmol/L Chloride Level 106 98-107 mmol/L Carbon Dioxide Level 27 20-31 mmol/L Anion Gap 8 5-15 Blood Urea Nitrogen 15 9-23 mg/dL Creatinine 0.90 0.550-1.02 mg/dL Glomerular Filtration Rate Calc 79 >90 mL/min BUN/Creatinine Ratio 16.7 10.0-20.0 Serum Glucose 98 74-106 mg/dL Calcium Level 9.7 8.7-10.4 mg/dL SEPSIS Sepsis Screen Date sepsis recognized/suspect: Jun 21, 2025 Time Sepsis recognized/suspect: 2114 Recent Procedure: No On Antibiotic Therapy: No Respiratory Rate >20: No Heart Rate >90: No Temp<36 C (96.8 F) or >38.3 C: No SBP <90 or MAP <65 mmHG: No New Acute Mental Status Change: No Is the patient on CPAP, BIPAP,: No Physician Orders Electrocardigram (06/21/25 20:14) Heplock Iv (06/21/25 17:24) Fireperson (06/21/25 17:24) Blood Pressure (06/21/25 17:24) Pulse Oximetry (06/21/25 17:24) Chest Two Views Routine (06/21/25 17:24) Urinalysis (06/21/25 17:24) Amiodarone 450mg/250ml Ae (Cordarone) (06/21/25 17:45) Metoprolol Xl Succinate (Toprol Xl) (06/22/25 10:00) Atorvastatin (Lipitor) (06/21/25 22:00) Apixaban (Eliquis) (06/21/25 22:00) Basic Metabolic Panel (06/22/25 04:00) Glucose Blood (Accu-Chek Comfort Curve T (06/21/25 22:00) Insulin R (Human) (Insulin R) (06/21/25 22:00) Dextrose 50% Syringe (06/21/25 20:00) Admit (06/21/25 19:48) Ondansetron Hcl (Zofran) (06/21/25 20:00) Cardiac Diet-2gna,Lofat,Lochol (06/22/25 Breakfast) Condition: Fair (06/21/25 19:48) Acetaminophen Tablet (Tylenol Tablet) (06/21/25 20:00) Bedrest With Bathroom Privileg (06/21/25 19:48) Nitroglycerin Sublingual (Ntrostat Subli (06/21/25 20:00) Stat Ekg For Chest Pain (06/21/25 19:48) Notify Md Of Changes From Base (06/21/25 19:48) Foreman Shipping Department For 24 Hours (06/21/25 19:48) Emergency Dysrhythmia Protocol (06/21/25 19:48) Rhythm Strips Once Every Shift (06/21/25 19:48) Oxygen By Nasal Cannula (06/21/25 19:48) Morphine Sulfate Injection (06/21/25 20:00) * Cardiology Consult (06/22/25 00:24) Vital Signs Date Time Temp Pulse Resp B/P (MAP) Pulse Ox O2 Delivery O2 Flow Rate FiO2 06/21/25 21:22 68 16 95 Room Air* 0 21 06/21/25 21:14 97.8 68 16 178/147 (157) 95 97.8 06/21/25 17:50 146 06/21/25 17:37 127 06/21/25 17:20 12 06/21/25 17:10 98.4 109 15 153/83 100 98.4 Laboratory Tests Test 06/21/25 17:26 White Blood Count 11.3 10^3/uL (4.4-10.8) H Assessment/Plan Assessment/Plan Assessment Chest pain AFib with RVR Palpitations Diabetes mellitus Hypertension Morbid obesity Plan Admit the patient to telemetry to the hospitalist Cardiology consultation Resume home medications Continue treatment per orders. Plan discussed with: Patient My Orders Orders - IZABELLA CHASE Procedure Category Date Status Time Metoprolol Xl PHA 06/22/25 In Process Succinate (Toprol Xl) 10:00 Atorvastatin (Lipitor) PHA 06/21/25 In Process 22:00 Apixaban (Eliquis) PHA 06/21/25 In Process 22:00 Basic Metabolic Panel LAB 06/22/25 Logged 04:00 Glucose Blood PHA 06/21/25 In Process (Accu-Chek Comfort 22:00 Insulin R (Human) PHA 06/21/25 In Process (Insulin R) 22:00 Dextrose 50% Syringe PHA 06/21/25 In Process 20:00 Admit ADMIT 06/21/25 Transmitted 19:48 Ondansetron Hcl PHA 06/21/25 In Process (Zofran) 20:00 Cardiac DIET 06/22/25 Transmitted Diet-2gna,Lofat,Lochol Breakfast Condition: Fair ADALID 06/21/25 In Process 19:48 Acetaminophen Tablet PHA 06/21/25 In Process (Tylenol Tablet) 20:00 Bedrest With Bathroom ADALID 06/21/25 In Process Privileg 19:48 Nitroglycerin PHA 06/21/25 In Process Sublingual (Ntrostat 20:00 Stat Ekg For Chest ADALID 06/21/25 In Process Pain 19:48 Notify Md Of Changes ADALID 06/21/25 In Process From Base 19:48 Foreman Shipping Department For ADALID 06/21/25 In Process 24 Hours 19:48 Emergency Dysrhythmia ADALID 06/21/25 In Process Protocol 19:48 Rhythm Strips Once ADALID 06/21/25 In Process Every Shift 19:48 Oxygen By Nasal RT 06/21/25 Transmitted Cannula 19:48 Morphine Sulfate PHA 06/21/25 In Process Injection 20:00 * Cardiology Consult CONS 06/22/25 Transmitted 00:24 Date of Service: Jun 21, 2025 Billing Provider: IZABELLA CHASE Common Visit Codes: [id number] INP/OBS CARE (HIGH) IZABELLA CHASE Jun 22, 2025 00:30
[2025-06-22] MEDS: AMIODARONE BOLUS KIT 100 ML IV ONE (03:50)
[2025-06-22] MEDS: ACCU-CHEK COMFORT CURVE STRIP VI SCH (03:53)
[2025-06-22] MEDS: InsuLIN REG 1unit/0.01ml Soln (100units/ml) SC SCH (03:53)
[2025-06-22] MEDS: ACETAMINOPHEN 325 MG TAB PO PRN (04:03)
[2025-06-22] MEDS: ATORVASTATIN 20 MG TAB PO SCH (04:03)
[2025-06-22 05:01] LABS: Chloride 104 mmol/L (98-107); Potassium 4.1 mmol/L (3.5-5.1); Sodium 140 mmol/L (136-145)
[2025-06-22 05:02] LABS: Anion Gap 6 (5-15); Carbon Dioxide 30 mmol/L (20-31)
[2025-06-22 05:03] LABS: Calcium 9.7 mg/dL (8.7-10.4)
[2025-06-22 05:08] LABS: BUN/Creatinine Ratio 16.7 (10.0-20.0); Blood Urea Nitrogen 13 mg/dL (9-23); Glucose 92 mg/dL (74-106); Triglycerides 98 mg/dL (< 150)
[2025-06-22 05:10] LABS: Cholesterol 107 mg/dL (< 200); HDL Cholesterol 40 mg/dL (40-59)
--- NOTE | 2025-06-22 09:39 | DVHINCON2 ---
Date Seen: Jun 22, 2025 Referring Physician ANTONIO Florez Reason for Consultation Afib RVR History of Present Illness This is a 49-year-old female patient who presents to the emergency room with chief complaint of chest pain and palpitations. The patient reports that symptoms began yesterday at approximately 8:00 a.m.. She describes chest pain that was unprovoked, intermittent, tight in nature, substernal and nonradiating. She states that symptoms subsided within a few minutes without any intervention. She denies any associated symptoms. At approximately 4:00 p.m. yesterday she reported feeling palpitations and her Apple watch alerted her that she was in atrial fibrillation. She decided to come to the emergency room for further evaluation. Initial twelve lead electrocardiogram reveals atrial fibrillation with uncontrolled rate. While in the emergency room lobby, the patient reports that symptoms subsided. By the time the patient was taken to the back emergency room, she was in a normal sinus rhythm. At the time of assessment, the patient remains in normal sinus rhythm. Initial troponin level of 30ng/L with down trend thereafter.Significant past medical history includes congestive heart failure, cardiac arrest x2, atrial fibrillation with direct current cardioversion (takes amiodarone and Eliquis), presence of ICD (Medtronic), hyperlipidemia, and morbid obesity. The patient reports that the first time that she experienced cardiac arrest was in 2012 during gastric bypass procedure in which she was resuscitated. The 2nd event of cardiac arrest happened in 2022 while at home. According to her knowledge, she reports that she became unresponsive at home (in 2022) and her daughter began CPR and she was then taken to a local hospital where she underwent a coronary angiogram without catheter based intervention and an ICD was placed. 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 Past Medical History Past medical history reviewed. No other significant than mentioned above. Past Surgical History Cholecystectomy ICD implantation in 2022 x2 Tonsillectomy D&C Family History: Diabetes mellitus G8 FATHER Hypertension G8 MOTHER G8 FATHER Thyroid disease G8 MOTHER Family History Family history reviewed. Social History Denies the use of tobacco, alcohol or illicit drugs. Allergies: Coded Allergies: Penicillins (Verified Allergy, Unknown, 03/26/24) Home Meds Active Scripts Metronidazole (Metronidazole) 500 Mg Tab, 500 MG PO TID for 4 Days, #12 TAB Prov:LUNA FINCH RESIDENT 10/18/24 Levofloxacin Hemihydrate (LEVOFLOXACIN) 750 Mg Tab, 1 TAB PO DAILY, #4 TAB Prov:LUNA FINCH RESIDENT 10/18/24 Acetaminophen (Tylenol Extra Strength) 500 Mg Tab, 1000 MG PO Q6HP PRN, #30 TAB Prov:JOSE MAY MD 03/26/24 Reported Medications Apixaban Base (ELIQUIS) 5 Mg Tab, 5 MG PO BID, TAB 10/14/24 Amiodarone Hcl (Amiodarone Hcl) 200 Mg Tab, 200 MG PO DAILY for 30 Days 10/14/24 Metoprolol Tartrate (Metoprolol Tartrate) 100 Mg Tab, 100 MG PO DAILY for 30 Days, MG 10/14/24 Atorvastatin Calcium (Lipitor) 80 Mg Tab, 1 TAB PO DAILY, #30 TAB 5 Refills 10/14/24 Home Meds Home medications reviewed. Current Medications Current Medications Medications (Trade) Dose Ordered Sig/Prashant Route PRN Reason Start Time Stop Time Status Last Admin Metoprolol Succinate (Toprol Xl) 100 mg DAILY PO 06/22/25 10:00 Atorvastatin Calcium (Lipitor) 80 mg HS PO 06/21/25 22:00 06/22/25 04:03 Apixaban (Eliquis) 5 mg BID PO 06/21/25 22:00 06/21/25 22:00 Diagnostic Test (Pha) (Accu-Chek Comfort Curve T) 1 strip ACHS 06/21/25 22:00 06/22/25 06:41 Insulin Human Regular (InsuLIN R) ACHS SC 06/21/25 22:00 Dextrose 50 ml UD PRN IV Blood Sugar LESS THAN 60 06/21/25 20:00 Ondansetron HCl (Zofran) 4 mg Q4HP PRN IV NAUSEA / VOMITING 06/21/25 20:00 Acetaminophen (Tylenol Tablet) 650 mg Q6HP PRN PO PAIN SCALE 1-3 OR TEMP>100.4 06/21/25 20:00 06/22/25 04:03 Nitroglycerin (Ntrostat Sublingual) 0.4 mg Q5MINP PRN SL FOR CHEST PAIN 06/21/25 20:00 Morphine Sulfate 2 mg Q30M PRN IV FOR CHEST PAIN 06/21/25 20:00 Review of Systems Constitutional: No symptom reported Ears, Nose, & Throat: No symptom reported Eyes: No symptom reported Neurological: No symptoms reported Pulmonary/Respiratory: No symptoms reported Cardiovascular: Chest pain, palpitations Gastrointestinal: No symptom reported Genitourinary: No symptom reported Musculoskeletal: No symptom reported Skin: No symptom reported Psychiatric: No symptom reported Endocrine: No symptom reported Hematologic/Lymphatic: No symptom reported Vital Signs Vital Signs Date Time Temp Pulse Resp B/P (MAP) Pulse Ox O2 Delivery O2 Flow Rate FiO2 06/22/25 09:11 59 16 142/44 (76) 100 06/22/25 06:20 97.0 97.0 06/21/25 21:22 Room Air* 0 21 Physical Exam General Appearance: Cooperative. Obese Pulmonary/Respiratory: Clear, bilateral breaths sounds. Cardiovascular/Chest: Regular rate and rhythm. Peripheral Pulses: 2+ Radial (R). 2+ Radial (L). 2+ Pedal (R). 2+ Pedal (L) Abdominal Exam: Normal bowel sounds. Ankle Exam: Negative ankle edema Lower extremities: Negative lower extremity edema Neuro/Mental Status: A/OX4, coherent. Thoughts/Psych: Normal thought pattern. Appropriate mood and affect. Good judgment and insight. Appearance: No acute distress. Skin Exam: Normal inspection. Normal color. Warm and dry. Labs/Diagnostic Data Labs Test 06/22/25 06:40 06/22/25 04:39 06/21/25 20:21 06/21/25 17:26 Range/Units POC Glucose 80 70-106 mg/dl Sodium Level 140 136-145 mmol/L Potassium Level 4.1 3.5-5.1 mmol/L Chloride Level 104 98-107 mmol/L Carbon Dioxide Level 30 20-31 mmol/L Anion Gap 6 5-15 Blood Urea Nitrogen 13 9-23 mg/dL Creatinine 0.78 0.550-1.02 mg/dL Glomerular Filtration Rate Calc 94 >90 mL/min BUN/Creatinine Ratio 16.7 10.0-20.0 Serum Glucose 92 74-106 mg/dL Calcium Level 9.7 8.7-10.4 mg/dL Triglycerides Level 98 < 150 mg/dL Cholesterol Level 107 < 200 mg/dL LDL Cholesterol 52 < 100 mg/dL HDL Cholesterol 40 40-59 mg/dL Thyroid Stimulating Hormone (TSH) 0.05 L 0.55-4.78 uIU/mL Troponin I High Sensitivity 25 </=34 ng/L White Blood Count 11.3 H 4.4-10.8 10^3/uL Red Blood Count 5.41 H 4.0-5.20 10^6/uL Hemoglobin 15.8 12.2-16.2 g/dL Hematocrit 47.4 H 36.0-46.0 % Mean Corpuscular Volume 87.6 80.0-100.0 fL Mean Corpuscular Hemoglobin 29.3 28.0-32.0 pg Mean Corpuscular Hemoglobin Concent 33.4 32.0-36.0 g/dL Red Cell Distribution Width 12.7 11.8-14.3 % Platelet Count 211 140-450 10^3/uL Mean Platelet Volume 10.0 6.9-10.8 fL Neutrophils (%) (Auto) 53.7 37.0-80.0 % Lymphocytes (%) (Auto) 33.9 10.0-50.0 % Monocytes (%) (Auto) 9.7 0.0-12.0 % Eosinophils (%) (Auto) 2.1 0.0-7.0 % Basophils (%) (Auto) 0.6 0.0-2.0 % Neutrophils # (Auto) 6.1 1.6-8.6 10 ^3/uL Lymphocytes # (Auto) 3.8 0.4-5.4 10 ^3/uL Monocytes # (Auto) 1.1 0-1.3 10 ^3/uL Eosinophils # (Auto) 0.2 0-0.8 10 ^3/uL Basophils # (Auto) 0.1 0-0.2 10 ^3/uL Nucleated Red Blood Cells 0.1 % Assessment Atrial fibrillation with rapid ventricular response, now normal sinus rhythm Chest pain, rule out coronary ischemia Chronic compensated HFpEF, NYHA class II Cardiac arrest x2 Paroxysmal atrial fibrillation with hx of direct current cardioversion (on amiodarone and Eliquis) Presence of ICD (Medtronic) Hyperlipidemia Rule out thyroid dysfunction Morbid obesity Plan/Recommendation We will continue with the following plan/recommendations (Dr. Lan): * Transthoracic echocardiogram to evaluate cardiac function * Previous transthoracic echocardiogram from 10/14/2024 reveals an EF of 60% with biatrial enlargement * [id number] VASc score: 4 points, HAS-BLED score: 1 point * Therapeutic Lovenox while inpatient, transition back to DOAC (Eliquis) when appropriate * Beta-jayne for rate control * Continue patient's oral amiodarone * Monitor and replete electrolytes as needed, keep potassium greater than four and magnesium greater than two * ICD interrogation * Close cardiac surveillance Plan discussed and reviewed with . We will proceed with obtaining a transthoracic echocardiogram to evaluate cardiac function. The patient is in normal sinus rhythm at time of assessment and denies any cardiac symptoms at this time. Patient does mention an episode of chest pain earlier this morning. Plan for possible stress test. Plan discussed with the patient who is agreeable to undergo stress test. TSH level noted to be extremely low. We will follow up with free T3 and T4 labs. Primary care team to manage thyroid function. We will consider nuclear stress test with stable thyroid function. Further recommendations per clinical course and progression. Thank you for allowing us to care for this patient. Please call with any questions or concerns. Critical care time spent: 44 minutes This medical document was created using an electronic medical record system with voice recognition software and computerized dictation system. Although this document has been carefully reviewed, there might still be some phonetic and typographical errors. Occasional wrong-word or ``sound-alike substitutions may have occurred due to the inherent limitations of voice recognition software. These areas are purely typographical due to imperfections of the software programs and do not reflect any compromise in the patient's medical care. Please read the chart carefully and recognize, using context, where these substitutions have occurred. Plan discussed with: Patient NYHA Physical activity limitations: Class2(Slight)fatigue,sob (palpitatns, angina w activityv) Date of Service: Jun 22, 2025 Billing Provider: LYNNE MARTINES Cardiology Common Codes: [id number] INP/OBS CARE (High) Cardiology Consultation Codes: [id number] CONSULT <45MIN LYNNE MARTINES Jun 22, 2025 09:39
[2025-06-22] MEDS: METOPROLOL SUCCINATE XL 50 MG TAB PO SCH (10:00)
[2025-06-22] MEDS ORDERED: ENOXAPARIN SOD 150 MG/1 ML SYRINGE SC SCH (10:00)
[2025-06-22 10:30] LABS: Free T3 7.98 pg/mL (2.3-4.2); Free T4 (Free Thyroxine) 3.16 ng/dL (0.89-1.76)
[2025-06-22] MEDS: AMIODARONE HCL 200 MG TAB PO ONE (10:46)
[2025-06-22] MEDS: ENOXAPARIN SOD 150 MG/1 ML SYRINGE SC SCH (10:47)
[2025-06-22 11:30] LABS: Urine Protein, UAD TRACE (Negative)
--- NOTE | 2025-06-22 16:02 | DVHPN2 ---
Subjective Patient denies any symptoms at this time. Did report having some substernal chest pain in the a.m.. Reviewed: Care Plan, H&P, Labs, Medications Changes from previous H/P or p: No Changes General: Per HPI Objective Vitals Vital Signs Date Time Temp Pulse Resp B/P (MAP) Pulse Ox O2 Delivery O2 Flow Rate FiO2 06/22/25 13:30 97.8 61 18 146/58 (87) 97 97.8 06/22/25 08:00 Room Air* 0 21 General Appearance: Alert, Oriented X3, Cooperative, No acute distress HEENT: Atraumatic, PERRLA Lungs: Clear to auscultation, Normal air movement Cardiovascular: Normal S1, Normal S2 Abdomen: Normal bowel sounds, Soft, No tenderness, No hepatospenomegaly, No masses Musculoskeletal: Normal sensory function, Normal motor function Skin: Dry, Intact Psych/Mental Status: Mental status NL, Mood NL Medications Current Medications Medications Dose Ordered Sig/Prashant Route Start Time Stop Time Status Last Admin Dose Admin Metoprolol Succinate 100 mg DAILY PO 06/22/25 10:00 Atorvastatin Calcium 80 mg HS PO 06/21/25 22:00 06/22/25 04:03 80 MG Diagnostic Test (Pha) 1 strip ACHS 06/21/25 22:00 06/22/25 11:40 1 STRIP Insulin Human Regular ACHS SC 06/21/25 22:00 Dextrose 50 ml UD PRN IV 06/21/25 20:00 Ondansetron HCl 4 mg Q4HP PRN IV 06/21/25 20:00 Acetaminophen 650 mg Q6HP PRN PO 06/21/25 20:00 06/22/25 10:46 650 MG Nitroglycerin 0.4 mg Q5MINP PRN SL 06/21/25 20:00 Morphine Sulfate 2 mg Q30M PRN IV 06/21/25 20:00 Amiodarone HCl 200 mg Q12HR PO 06/22/25 22:00 Enoxaparin Sodium 140 mg Q12HR SC 06/22/25 10:00 06/22/25 10:47 140 MG Laboratory Results Laboratory Tests 06/21/25 17:26 06/22/25 04:39 Chemistry Test 06/21/25 17:26 06/22/25 04:39 Calcium Level 9.7 mg/dL (8.7-10.4) 9.7 mg/dL (8.7-10.4) Magnesium Level 1.8 mg/dL (1.6-2.6) Lipid panel Test 06/22/25 04:39 Cholesterol Level 107 mg/dL (< 200) HDL Cholesterol 40 mg/dL (40-59) Triglycerides Level 98 mg/dL (< 150) HgA1c, TSH Test 06/22/25 04:39 Hemoglobin A1c 5.1 % A1C (<5.7) Thyroid Stimulating Hormone (TSH) 0.05 uIU/mL (0.55-4.78) L Urinalysis Test 06/22/25 11:00 Urine Color Yellow (Yellow) Urine Clarity Turbid (Clear) H Urine pH 6.0 (5.0-9.0) Urine Specific [place] 1.034 (1.001-1.035) Urine Protein Trace (Negative) H Urine Ketones Negative (Negative) Urine Blood Trace /uL (Negative) H Urine Nitrite Negative (Negative) Urine Bilirubin Negative (Negative) Urine Urobilinogen 2 mg/dL (Negative) H Urine Leukocyte Esterase 1+ /uL (Negative) Urine RBC 3 /hpf (0 - 4) Urine Microscopic WBC 6 /HPF (0-5) H Urine Squamous Epithelial Cells Mod /hpf (<5) Urine Bacteria Few /hpf (None Seen) H Urine Mucus Few (None Seen) Urine Glucose Normal mg/dL (Normal) Labs and/or images reviewed: Labs reviewed by me, Image(s) reviewed by me Assessment/Plan Assessment/Plan Impression: -AFib with RVR -hypothyroidism -primary hypertension -dyslipidemia -diabetes mellitus -obesity Plan: -pacemaker interrogation -cardiology consultation -continue antiarrhythmics -thyroid ultrasound -regular insulin sliding scale -repeat labs in a.m. Total time spent with patient discussing and formulating plan of care: 35 minutes. This medical document was created using an electronic medical record system with [employer] dictation system. Although this document has been carefully reviewed, there may still be some phonetic and typographical errors. These areas are purely typographical due to imperfections of the software programs, and do not reflect any compromise in the patient's medical care. Plan discussed with: Patient, Other (RN) My Orders Orders - TATUM BUCKNER NP Procedure Category Date Status Time Thyroid US 06/22/25 Verified 15:58 Gate Attendant To Assess ORDERS 06/22/25 Verified Pacemaker 15:58 Date of Service: Jun 22, 2025 Billing Provider: TATUM BUCKNER NP Common Visit Codes: [id number] INP/OBS CARE(HIGH) TATUM BUCKNER NP Jun 22, 2025 16:02
--- NOTE | 2025-06-22 16:35 | DVH ---
CLINICAL HISTORY: Hyperthyroidsim TECHNIQUE: Ultrasound exam of the thyroid gland was performed using grayscale and color doppler imaging. COMPARISON: None FINDINGS: The right lobe measures 4.3 x 1.9 x 2.1 cm The left lobe measures 4.4 x 1.7 x 2.1 cm The isthmus measures 0.5 cm NODULES: No significant nodules. IMPRESSION: No significant sonographic abnormality of the thyroid gland.
--- NOTE | 2025-06-22 20:41 | DVHINCON2 ---
Date Seen: Jun 22, 2025 Referring Physician ANTONIO Florez Reason for Consultation Afib RVR History of Present Illness This is a 49-year-old female with a past past medical history of congestive heart failure, cardiac arrest x2, atrial fibrillation with direct current cardioversion (takes amiodarone and Eliquis), presence of ICD (Medtronic), hyperlipidemia, and morbid obesity who presents to the emergency room with chief complaint of chest pain and palpitations. The patient reports that symptoms began yesterday at approximately 8:00 a.m. She describes chest pain that was unprovoked, intermittent, tight in nature, substernal and nonradiating. She states that symptoms subsided within a few minutes without any intervention. She denies any associated symptoms. At approximately 4:00 p.m. yesterday she repor tushar feeling palpitations and her Apple watch alerted her that she was in atrial fibrillation. She decided to come to the emergency room for further evaluation. Initial twelve lead electrocardiogram reveals atrial fibrillation with uncontrolled rate. While in the emergency room lobby, the patient reports that symptoms subsided. By the time the patient was taken to the back emergency room, she was in a normal sinus rhythm. At the time of assessment, the patient remains in normal sinus rhythm. Initial troponin level of 30ng/L with down trend thereafter. The patient reports that the first time that she experienced cardiac arrest was in 2012 during gastric bypass procedure in which she was resuscitated. The 2nd event of cardiac arrest happened in 2022 while at home. According to her knowledge, she reports that she became unresponsive at home (in 2022) and her daughter began CPR and she was then taken to a local hospital where she underwent a coronary angiogram without catheter based intervention and an ICD was placed. The patient does not follow a bow maker custom in the outpatient setting. Patient was admitted to the hospital. I am asked to consult on this patient. Past Medical History Past medical history reviewed. No other significant than mentioned above. Past Surgical History Cholecystectomy ICD implantation in 2022 x2 Tonsillectomy D&C Family History: Diabetes mellitus G8 FATHER Hypertension G8 MOTHER G8 FATHER Thyroid disease G8 MOTHER Allergies: Coded Allergies: Penicillins (Verified Allergy, Unknown, 03/26/24) Home Meds Active Scripts Metronidazole (Metronidazole) 500 Mg Tab, 500 MG PO TID for 4 Days, #12 TAB Prov:LUNA FINCH RESIDENT 4/8/25 Levofloxacin Hemihydrate (LEVOFLOXACIN) 750 Mg Tab, 1 TAB PO DAILY, #4 TAB Prov:LUNA FINCH RESIDENT 10/18/24 Acetaminophen (Tylenol Extra Strength) 500 Mg Tab, 1000 MG PO Q6HP PRN, #30 TAB Prov:JOSE MAY MD 03/26/24 Reported Medications Apixaban Base (ELIQUIS) 5 Mg Tab, 5 MG PO BID, TAB 10/14/24 Amiodarone Hcl (Amiodarone Hcl) 200 Mg Tab, 200 MG PO DAILY for 30 Days 10/14/24 Metoprolol Tartrate (Metoprolol Tartrate) 100 Mg Tab, 100 MG PO DAILY for 30 Days, MG 10/14/24 Atorvastatin Calcium (Lipitor) 80 Mg Tab, 1 TAB PO DAILY, #30 TAB 5 Refills 10/14/24 Current Medications Current Medications Medications (Trade) Dose Ordered Sig/Prashant Route PRN Reason Start Time Stop Time Status Last Admin Metoprolol Succinate (Toprol Xl) 100 mg DAILY PO 06/22/25 10:00 Atorvastatin Calcium (Lipitor) 80 mg HS PO 06/21/25 22:00 06/22/25 04:03 Apixaban (Eliquis) 5 mg BID PO 06/21/25 22:00 06/22/25 09:39 DC 06/21/25 22:00 Diagnostic Test (Pha) (Accu-Chek Comfort Curve T) 1 strip ACHS 06/21/25 22:00 06/22/25 11:40 Insulin Human Regular (InsuLIN R) ACHS SC 06/21/25 22:00 Dextrose 50 ml UD PRN IV Blood Sugar LESS THAN 60 06/21/25 20:00 Ondansetron HCl (Zofran) 4 mg Q4HP PRN IV NAUSEA / VOMITING 06/21/25 20:00 Acetaminophen (Tylenol Tablet) 650 mg Q6HP PRN PO PAIN SCALE 1-3 OR TEMP>100.4 06/21/25 20:00 06/22/25 10:46 Nitroglycerin (Ntrostat Sublingual) 0.4 mg Q5MINP PRN SL FOR CHEST PAIN 06/21/25 20:00 Morphine Sulfate 2 mg Q30M PRN IV FOR CHEST PAIN 06/21/25 20:00 Enoxaparin Sodium (Lovenox) 150 mg Q12HR SC 06/22/25 10:00 06/22/25 10:11 DC Amiodarone HCl (Cordarone Tablet) 200 mg Q12HR PO 06/22/25 22:00 Enoxaparin Sodium (Lovenox) 140 mg Q12HR SC 06/22/25 10:00 06/22/25 10:47 Review of Systems Constitutional: No symptom reported Ears, Nose, & Throat: No symptom reported Eyes: No symptom reported Neurological: No symptoms reported Pulmonary/Respiratory: No symptoms reported Cardiovascular: Chest pain, palpitations Gastrointestinal: No symptom reported Genitourinary: No symptom reported Musculoskeletal: No symptom reported Skin: No symptom reported Psychiatric: No symptom reported Endocrine: No symptom reported Hematologic/Lymphatic: No symptom reported Vital Signs Vital Signs Date Time Temp Pulse Resp B/P (MAP) Pulse Ox O2 Delivery O2 Flow Rate FiO2 06/22/25 10:00 58 142/44 06/22/25 09:11 16 100 06/22/25 08:00 Room Air* 0 21 06/22/25 06:20 97.0 97.0 Physical Exam GENERAL: Alert and oriented x 3. No acute distress. Obese. EYES: PERRL, EOMI. Anicteric. HENT: Moist mucous membranes. LUNGS: Clear to auscultation bilaterally. CARDIOVASCULAR: Regular rate and rhythm. ABDOMEN: Soft, nontender and nondistended. EXTREMITIES: No edema. NEUROLOGIC: No focal neurological deficits. SKIN: Warm, dry. Labs/Diagnostic Data Labs Test 06/22/25 11:39 06/22/25 11:00 06/22/25 04:39 06/21/25 20:21 Range/Units POC Glucose 95 70-106 mg/dl Urine Color Yellow Yellow Urine Clarity Turbid H Clear Urine pH 6.0 5.0-9.0 Urine Specific [facility] 1.034 1.001-1.035 Urine Protein Trace H Negative Urine Ketones Negative Negative Urine Blood Trace H Negative /uL Urine Nitrite Negative Negative Urine Bilirubin Negative Negative Urine Urobilinogen 2 H Negative mg/dL Urine Leukocyte Esterase 1+ Negative /uL Urine RBC 3 0 - 4 /hpf Urine Microscopic WBC 6 H 0-5 /HPF Urine Squamous Epithelial Cells Mod <5 /hpf Urine Bacteria Few H None Seen /hpf Urine Mucus Few None Seen Urine Glucose Normal Normal mg/dL Sodium Level 140 136-145 mmol/L Potassium Level 4.1 3.5-5.1 mmol/L Chloride Level 104 98-107 mmol/L Carbon Dioxide Level 30 20-31 mmol/L Anion Gap 6 5-15 Blood Urea Nitrogen 13 9-23 mg/dL Creatinine 0.78 0.550-1.02 mg/dL Glomerular Filtration Rate Calc 94 >90 mL/min BUN/Creatinine Ratio 16.7 10.0-20.0 Serum Glucose 92 74-106 mg/dL Hemoglobin A1c 5.1 <5.7 % A1C Calcium Level 9.7 8.7-10.4 mg/dL Magnesium Level 1.8 1.6-2.6 mg/dL Triglycerides Level 98 < 150 mg/dL Cholesterol Level 107 < 200 mg/dL LDL Cholesterol 52 < 100 mg/dL HDL Cholesterol 40 40-59 mg/dL Thyroid Stimulating Hormone (TSH) 0.05 L 0.55-4.78 uIU/mL Free Thyroxine (T4) Calculated 3.16 H 0.89-1.76 ng/dL Free Triiodothyronine (T3) pg/mL 7.98 H 2.3-4.2 pg/mL Beta HCG, Quantitative 1.2 L 1.5-4.2 mIU/mL Troponin I High Sensitivity 25 </=34 ng/L Test 06/21/25 17:26 Range/Units White Blood Count 11.3 H 4.4-10.8 10^3/uL Red Blood Count 5.41 H 4.0-5.20 10^6/uL Hemoglobin 15.8 12.2-16.2 g/dL Hematocrit 47.4 H 36.0-46.0 % Mean Corpuscular Volume 87.6 80.0-100.0 fL Mean Corpuscular Hemoglobin 29.3 28.0-32.0 pg Mean Corpuscular Hemoglobin Concent 33.4 32.0-36.0 g/dL Red Cell Distribution Width 12.7 11.8-14.3 % Platelet Count 211 140-450 10^3/uL Mean Platelet Volume 10.0 6.9-10.8 fL Neutrophils (%) (Auto) 53.7 37.0-80.0 % Lymphocytes (%) (Auto) 33.9 10.0-50.0 % Monocytes (%) (Auto) 9.7 0.0-12.0 % Eosinophils (%) (Auto) 2.1 0.0-7.0 % Basophils (%) (Auto) 0.6 0.0-2.0 % Neutrophils # (Auto) 6.1 1.6-8.6 10 ^3/uL Lymphocytes # (Auto) 3.8 0.4-5.4 10 ^3/uL Monocytes # (Auto) 1.1 0-1.3 10 ^3/uL Eosinophils # (Auto) 0.2 0-0.8 10 ^3/uL Basophils # (Auto) 0.1 0-0.2 10 ^3/uL Nucleated Red Blood Cells 0.1 % Assessment Atrial fibrillation with rapid ventricular response, now normal sinus rhythm. Chest pain, rule out coronary ischemia. Chronic compensated HFpEF, NYHA class II. Cardiac arrest x2. Paroxysmal atrial fibrillation with hx of direct current cardioversion (on amiodarone and Eliquis). Presence of ICD (Medtronic). Hyperlipidemia. Rule out thyroid dysfunction. Morbid obesity. Plan/Recommendation I agree with your ongoing assessment and care of plan. Patient has been seen by Claire Toro NP on my behalf, her and I discussed the plan with the patient. Transthoracic echocardiogram to evaluate cardiac function. Previous transthoracic echocardiogram from 10/14/2024 reveals an EF of 60% with biatrial enlargement. [id number] VASc score: 4 points, HAS-BLED score: 1 point. Therapeutic Lovenox while inpatient, transition back to DOAC (Eliquis) when appropriate. Beta-jayne for rate control. Continue patient's oral amiodarone. Monitor and replete electrolytes as needed, keep potassium greater than four and magnesium greater than two. ICD interrogation. Close cardiac surveillance. We will proceed with obtaining a transthoracic echocardiogram to evaluate cardiac function. The patient is in normal sinus rhythm at time of assessment and denies any cardiac symptoms at this time. Patient does mention an episode of chest pain earlier this morning. Plan for possible stress test. Plan discussed with the patient who is agreeable to undergo stress test. TSH level noted to be extremely low. We will follow up with free T3 and T4 labs. Primary care team to manage thyroid function. We will consider nuclear stress test with stable thyroid function. Additional plan as per the hospital course. Plan discussed with: Patient NYHA Physical activity limitations: Class2(Slight)fatigue,sob Date of Service: Jun 22, 2025 Billing Provider: FLORIAN LENNON MD Cardiology Common Codes: 02041-[id number] INP/OBS CARE (High) Cardiology Consultation Codes: [id number] CONSULT <45MIN FLORIAN LENNON MD Jun 22, 2025 12:17
[2025-06-22] MEDS: AMIODARONE HCL 200 MG TAB PO SCH (22:00)
[2025-06-22] MEDS: HYDROcodone-ACET 5/325MG TAB PO PRN (23:37)
[2025-06-23] VITALS (8 sets, daily range): BP systolic 124–142; BP diastolic 61–80; PULSE 56–127; RESP 16–22; TEMP 97.4–98.1; O2SAT 96–100
--- NOTE | 2025-06-23 04:55 | ECG ---
[facility] Test Date: 2025-06-23 Test Time: 04:49:33 Pat Name: ANALIA GONZALEZ Department: Room: [address] [place] [address] 2 Gender: F Chief Controller Station: : 1975 Requested By: VIJI GEORGE Order Number: [id number] Reading MD: Ryan Springer Measurements Intervals [place] Rate: 59 P: 47 CA: 146 QRS: 28 QRSD: 102 T: 16 QT: 449 QTc: 445 Interpretive Statements Sinus rhythm RSR' in V1 or V2, probably normal variant ST elev, probable normal early repol pattern Electronically Signed On 06-29-2025 8:12:23 PST by Ryan Springer Please click the below link to view image of tracing.
[2025-06-23] MEDS: NITROGLYCERIN 0.4 MG SL TAB SL PRN (08:21)
--- NOTE | 2025-06-23 09:08 | ECG ---
[facility] Test Date: 2025-06-23 Test Time: 08:09:36 Pat Name: ANALIA GONZALEZ Department: Room: [address] [place] [address] 2 Gender: F Drill Bit Sharpener: yash : 1975 Requested By: DARNELL ARCHIBALD Order Number: [id number] Reading MD: Ryan Springer Measurements Intervals [place] Rate: 131 P: 0 ND: 0 QRS: 13 QRSD: 94 T: 2 QT: 351 QTc: 519 Interpretive Statements Atrial flutter with 2:1 AV block RSR' in V1 or V2, probably normal variant Borderline ST depression, diffuse leads Borderline ST elevation, anterior leads Prolonged QT interval Electronically Signed On 06-29-2025 8:12:26 PST by Ryan Springer Please click the below link to view image of tracing.
[2025-06-23] MEDS ORDERED: AMIODARONE BOLUS KIT 100 ML IV ONE (09:45)
--- NOTE | 2025-06-23 13:37 | DVHPN2 ---
Subjective Patient denies any symptoms at this time. Did report having some substernal chest pain in the a.m.. Reviewed: Care Plan, H&P, Labs, Medications Changes from previous H/P or p: No Changes General: Per HPI Objective Vitals Vital Signs Date Time Temp Pulse Resp B/P (MAP) Pulse Ox O2 Delivery O2 Flow Rate FiO2 06/23/25 09:21 137/83 06/23/25 09:00 97.5 63 18 96 97.5 06/23/25 08:00 Room Air* 0 21 Intake/Output Intake and Output 06/23/25 07:00 Intake Total 900 ml Balance 900 ml Intake Oral 900 ml # Voids 9 General Appearance: Alert, Oriented X3, Cooperative, No acute distress HEENT: Atraumatic, PERRLA Lungs: Clear to auscultation, Normal air movement Cardiovascular: Normal S1, Normal S2 Abdomen: Normal bowel sounds, Soft, No tenderness, No hepatospenomegaly, No masses Musculoskeletal: Normal sensory function, Normal motor function Skin: Dry, Intact Psych/Mental Status: Mental status NL, Mood NL Medications Current Medications Medications Dose Ordered Sig/Prashant Route Start Time Stop Time Status Last Admin Dose Admin Metoprolol Succinate 100 mg DAILY PO 06/22/25 10:00 06/23/25 09:00 100 MG Atorvastatin Calcium 80 mg HS PO 06/21/25 22:00 06/22/25 22:12 80 MG Diagnostic Test (Pha) 1 strip ACHS 06/21/25 22:00 06/23/25 12:14 1 STRIP Insulin Human Regular ACHS SC 06/21/25 22:00 Dextrose 50 ml UD PRN IV 06/21/25 20:00 Ondansetron HCl 4 mg Q4HP PRN IV 06/21/25 20:00 Acetaminophen 650 mg Q6HP PRN PO 06/21/25 20:00 06/22/25 18:28 650 MG Nitroglycerin 0.4 mg Q5MINP PRN SL 06/21/25 20:00 06/23/25 08:21 0.4 MG Morphine Sulfate 2 mg Q30M PRN IV 06/21/25 20:00 Amiodarone HCl 200 mg Q12HR PO 06/22/25 22:00 Hold 06/23/25 09:00 200 MG Enoxaparin Sodium 140 mg Q12HR SC 06/22/25 10:00 06/23/25 09:01 140 MG Acetaminophen/ Hydrocodone Bitart 1 tab Q4HPRN PRN PO 06/22/25 23:30 06/23/25 05:49 1 TAB Laboratory Results Laboratory Tests 06/21/25 17:26 06/22/25 04:39 Urinalysis Test 06/22/25 11:00 Urine Color Yellow (Yellow) Urine Clarity Turbid (Clear) H Urine pH 6.0 (5.0-9.0) Urine Specific [place] 1.034 (1.001-1.035) Urine Protein Trace (Negative) H Urine Ketones Negative (Negative) Urine Blood Trace /uL (Negative) H Urine Nitrite Negative (Negative) Urine Bilirubin Negative (Negative) Urine Urobilinogen 2 mg/dL (Negative) H Urine Leukocyte Esterase 1+ /uL (Negative) Urine RBC 3 /hpf (0 - 4) Urine Microscopic WBC 6 /HPF (0-5) H Urine Squamous Epithelial Cells Mod /hpf (<5) Urine Bacteria Few /hpf (None Seen) H Urine Mucus Few (None Seen) Urine Glucose Normal mg/dL (Normal) Labs and/or images reviewed: Labs reviewed by me, Image(s) reviewed by me Assessment/Plan Assessment/Plan Impression: -AFib with RVR -hypothyroidism -primary hypertension -dyslipidemia -diabetes mellitus -obesity Plan: Events: Patient is beta blockers and amiodarone were held yesterday evening. Had AFib with RVR today. Converted back to sinus rhythm after receiving beta- jayne therapy and amiodarone p.o.. Apparently, patient is to have stress test which will be performed on Thursday. Patient is agreeable -pacemaker interrogation -cardiology consultation -continue antiarrhythmics -thyroid ultrasound: Unremarkable -regular insulin sliding scale -repeat labs in a.m. Total time spent with patient discussing and formulating plan of care: 35 minutes. This medical document was created using an electronic medical record system with [employer] dictation system. Although this document has been carefully reviewed, there may still be some phonetic and typographical errors. These areas are purely typographical due to imperfections of the software programs, and do not reflect any compromise in the patient's medical care. Plan discussed with: Patient, Other (RN) My Orders Orders - TATUM BUCKNER NUMERICAL CONTROL LATHE OPERATOR Procedure Category Date Status Time Thyroid US 06/22/25 Resulted 15:58 Wardrobe Technician To Assess ORDERS 06/22/25 Transmitted Pacemaker 15:58 Ekg On Admit ADALID 06/23/25 In Process 08:34 Date of Service: Jun 23, 2025 Billing Provider: TATUM BUCKNER NP Common Visit Codes: [id number] INP/OBS CARE(HIGH) TATUM BUCKNER NP Jun 23, 2025 13:37
--- NOTE | 2025-06-23 15:33 | DVHPN2 ---
Consult Progress Note Subjective Other Systems: The patient had episode of atrial fibrillation with rapid ventricular response, self converted and is now in normal sinus rhythm at time of assessment. Objective vital signs Vital Sign Date Time Temp Pulse Resp B/P (MAP) Pulse Ox O2 Delivery O2 Flow Rate FiO2 06/23/25 13:00 97.6 72 22 134/69 (90) 100 97.6 06/23/25 08:00 Room Air* 0 21 Total Intake and Output 06/22/25 06/22/25 06/23/25 15:00 23:00 07:00 Intake Total 500 ml 400 ml Balance 500 ml 400 ml medications Current Medications Medications Dose Ordered Sig/Prashant Route Start Time Stop Time Status Last Admin Dose Admin Metoprolol Succinate 100 mg DAILY PO 06/22/25 10:00 06/23/25 09:00 100 MG Atorvastatin Calcium 80 mg HS PO 06/21/25 22:00 06/22/25 22:12 80 MG Diagnostic Test (Pha) 1 strip ACHS 06/21/25 22:00 06/23/25 12:14 1 STRIP Insulin Human Regular ACHS SC 06/21/25 22:00 Dextrose 50 ml UD PRN IV 06/21/25 20:00 Ondansetron HCl 4 mg Q4HP PRN IV 06/21/25 20:00 Acetaminophen 650 mg Q6HP PRN PO 06/21/25 20:00 06/22/25 18:28 650 MG Nitroglycerin 0.4 mg Q5MINP PRN SL 06/21/25 20:00 06/23/25 08:21 0.4 MG Morphine Sulfate 2 mg Q30M PRN IV 06/21/25 20:00 Amiodarone HCl 200 mg Q12HR PO 06/22/25 22:00 Hold 06/23/25 09:00 200 MG Enoxaparin Sodium 140 mg Q12HR SC 06/22/25 10:00 06/23/25 09:01 140 MG Acetaminophen/ Hydrocodone Bitart 1 tab Q4HPRN PRN PO 06/22/25 23:30 06/23/25 05:49 1 TAB Examination: GENERAL:Normal, LUNGS:Normal, CVS:Normal, NEURO:Normal laboratory and microbiology Laboratory Tests 06/22/25 04:39 06/21/25 17:26 Test 06/22/25 04:39 Range/Units Serum Glucose 92 74-106 mg/dL Problem List/Assessment/Plan Problem List/Assessment/Plan Atrial fibrillation with rapid ventricular response, now normal sinus rhythm Chest pain, rule out coronary ischemia Chronic compensated HFpEF, NYHA class II Cardiac arrest x2 Paroxysmal atrial fibrillation with hx of direct current cardioversion (on amiodarone and Eliquis) Presence of ICD (Medtronic) Hyperlipidemia Rule out thyroid dysfunction Morbid obesity Plan/Recommendations (Dr. Lan): * Transthoracic echocardiogram to evaluate cardiac function * Previous transthoracic echocardiogram from 10/14/2024 reveals an EF of 60% with biatrial enlargement * [id number] VASc score: 4 points, HAS-BLED score: 1 point * Therapeutic Lovenox while inpatient, transition back to DOAC (Eliquis) when appropriate * Beta-jayne for rate control * Continue patient's oral amiodarone * Monitor and replete electrolytes as needed, keep potassium greater than four and magnesium greater than two * ICD interrogation: EZEQUIEL 5.3 years. No device or lead function issues noted per report. Multiple episodes of atrial fibrillation with RVR noted * Close cardiac surveillance Plan discussed and reviewed with . We will proceed with obtaining a transthoracic echocardiogram to evaluate cardiac function. The patient is in normal sinus rhythm at time of assessment and denies any cardiac symptoms at this time. Plan for possible stress test. Plan discussed with the patient who is agreeable to undergo stress test. TSH level noted to be extremely low. High T3 and T4 labs. Primary care team to manage thyroid function. We will consider nuclear stress test with stable thyroid function. Further recommendations per clinical course and progression. Thank you for allowing us to care for this patient. Please call with any questions or concerns. This medical document was created using an electronic medical record system with voice recognition software and computerized dictation system. Although this document has been carefully reviewed, there might still be some phonetic and typographical errors. Occasional wrong-word or ``sound-alike substitutions may have occurred due to the inherent limitations of voice recognition software. These areas are purely typographical due to imperfections of the software programs and do not reflect any compromise in the patient's medical care. Please read the chart carefully and recognize, using context, where these substitutions have occurred. Plan discussed with: Patient Date of Service: Jun 23, 2025 Billing Provider: LYNNE MARTINES Common Visit Codes: [id number] INP/OBS CARE(HIGH) LYNNE MARTINES [facility] Jun 23, 2025 15:33
--- NOTE | 2025-06-23 21:34 | DVHSR ---
APPROVED REPORT EXAM: Two-dimensional and M-mode echocardiogram with Doppler and color Doppler. Blood Pressure: 137/75 mmHg INDICATION Evaluate Cardiac Function RISK FACTORS Height: 5' 2", Weight: 310 DIMENSIONS LVDd 5.1 (3.8-5.7cm) LA (2D) 4.0 (1.9-4.0cm) Aortic Root 2.8 (2.0-3.7cm) LVDs 3.5 (2.5-4.0cm) LA (MM) (1.9-4.0cm) Aortic Cusp Exc 1.9 (1.5-2.0cm) EF (%) 58.0 (55-70%) Rt. Atrium 3.9 (1.9-4.0cm) Asc. Aorta cm IVSd 1.0 (0.7-1.1cm) RV (D) (1.8-2.4cm) PWd 1.0 (0.7-1.1cm) Mitral Valve Mitral Mitral Stenosis E wave 1.10m/s MV Mean GR. mmHg A wave 0.70m/s MV Peak GR. mmHg E/A ratio 1.6 2D MVA cm2 Aortic Valve Aortic Valve Aortic Stenosis V1 1.40m/s AO Mean GR. 9mmHg V2 2.00m/s AO Peak GR. 16mmHg LVOT Diameter 2.2 (1.8-2.4cm) Doppler MANAS 2.66cm2 Pulmonic Valve V2 0.90m/s Tricuspid Valve TR Velocity 2.50m/s RVSP 30mmHg Conclusion MILD LVH AND MILD LV DIASTOLIC DYSFUNCTION LV EF IS 65% AND IS NORMAL NORMAL VALVES NO EFFUSION
--- NOTE | 2025-06-23 22:09 | DVHPN2 ---
Consult Progress Note Subjective Other Systems: Patient was seen and evaluated in follow up. The patient had episode of atrial fibrillation with rapid ventricular response, self converted and is now in normal sinus rhythm at time of assessment. Telemetry reviewed. Objective vital signs Vital Sign Date Time Temp Pulse Resp B/P (MAP) Pulse Ox O2 Delivery O2 Flow Rate FiO2 06/23/25 13:00 97.6 72 22 134/69 (90) 100 97.6 06/23/25 08:00 Room Air* 0 21 Total Intake and Output 06/22/25 06/22/25 06/23/25 15:00 23:00 07:00 Intake Total 500 ml 400 ml Balance 500 ml 400 ml medications Current Medications Medications Dose Ordered Sig/Prashant Route Start Time Stop Time Status Last Admin Dose Admin Metoprolol Succinate 100 mg DAILY PO 06/22/25 10:00 06/23/25 09:00 100 MG Atorvastatin Calcium 80 mg HS PO 06/21/25 22:00 06/22/25 22:12 80 MG Diagnostic Test (Pha) 1 strip ACHS 06/21/25 22:00 06/23/25 12:14 1 STRIP Insulin Human Regular ACHS SC 06/21/25 22:00 Dextrose 50 ml UD PRN IV 06/21/25 20:00 Ondansetron HCl 4 mg Q4HP PRN IV 06/21/25 20:00 Acetaminophen 650 mg Q6HP PRN PO 06/21/25 20:00 06/22/25 18:28 650 MG Nitroglycerin 0.4 mg Q5MINP PRN SL 06/21/25 20:00 06/23/25 08:21 0.4 MG Morphine Sulfate 2 mg Q30M PRN IV 06/21/25 20:00 Amiodarone HCl 200 mg Q12HR PO 06/22/25 22:00 06/23/25 09:00 200 MG Enoxaparin Sodium 140 mg Q12HR SC 06/22/25 10:00 06/23/25 09:01 140 MG Acetaminophen/ Hydrocodone Bitart 1 tab Q4HPRN PRN PO 06/22/25 23:30 06/23/25 05:49 1 TAB Examination: GENERAL:Normal, HEENT:Normal, NECK:Normal, LUNGS:Normal, CVS:Normal, NEURO:Normal laboratory and microbiology Laboratory Tests 06/22/25 04:39 06/21/25 17:26 Test 06/22/25 04:39 Range/Units Serum Glucose 92 74-106 mg/dL Problem List/Assessment/Plan Problem List/Assessment/Plan Problem List Atrial fibrillation with rapid ventricular response, now normal sinus rhythm. Chest pain, rule out coronary ischemia. Chronic compensated HFpEF, NYHA class II. Cardiac arrest x2. Paroxysmal atrial fibrillation with hx of direct current cardioversion (on amiodarone and Eliquis). Presence of ICD (Medtronic). Hyperlipidemia. Rule out thyroid dysfunction. Morbid obesity. Plan/Recommendation Continued all current supportive medical care. Patient has been seen by Claire Toro NP on my behalf, her and I discussed the plan with the patient. Transthoracic echocardiogram to evaluate cardiac function. Previous transthoracic echocardiogram from 10/14/2024 reveals an EF of 60% with biatrial enlargement. [id number] VASc score: 4 points, HAS-BLED score: 1 point. Therapeutic Lovenox while inpatient, transition back to DOAC (Eliquis) when appropriate. Beta-jayne for rate control. Continue patient's oral amiodarone. Monitor and replete electrolytes as needed, keep potassium greater than four and magnesium greater than two. ICD interrogation: EZEQUIEL 5.3 years. No device or lead function issues noted per report. Multiple episodes of atrial fibrillation with RVR noted. Close cardiac surveillance. We will proceed with obtaining a transthoracic echocardiogram to evaluate cardiac function. The patient is in normal sinus rhythm at time of assessment and denies any cardiac symptoms at this time. Plan for possible stress test. Plan discussed with the patient who is agreeable to undergo stress test. TSH level noted to be extremely low. High T3 and T4 labs. Primary care team to manage thyroid function. We will consider nuclear stress test with stable thyroid function. Further recommendations per clinical course and progression. Additional plan as per the hospital course. Plan discussed with: Patient Date of Service: Jun 23, 2025 Billing Provider: FLORIAN LENNON MD Cardiology Common Codes: [id number] HOSP CARE(FLORIAN Lyon MD Jun 23, 2025 15:55
[2025-06-24] VITALS (8 sets, daily range): BP systolic 118–172; BP diastolic 48–84; PULSE 56–76; RESP 17–19; TEMP 97.2–98.3; O2SAT 96–99
--- NOTE | 2025-06-24 13:21 | DVHPN2 ---
Reviewed: Care Plan, H&P, Labs, Medications Changes from previous H/P or p: No Changes General: Per HPI Objective Vitals Vital Signs Date Time Temp Pulse Resp B/P (MAP) Pulse Ox O2 Delivery O2 Flow Rate FiO2 06/24/25 10:27 63 147/76 06/24/25 09:00 97.8 18 97 97.8 06/24/25 08:00 Room Air* 0 21 Intake/Output Intake and Output 06/24/25 07:00 Intake Total 1230 ml Balance 1230 ml Intake Oral 1230 ml # Voids 13 # Bowel Movements 1 General Appearance: Alert, Oriented X3, Cooperative, No acute distress HEENT: Atraumatic, PERRLA Lungs: Clear to auscultation, Normal air movement Cardiovascular: Normal S1, Normal S2 Abdomen: Normal bowel sounds, Soft, No tenderness, No hepatospenomegaly, No masses Musculoskeletal: Normal sensory function, Normal motor function Skin: Dry, Intact Psych/Mental Status: Mental status NL, Mood NL Medications Current Medications Medications Dose Ordered Sig/Prashant Route Start Time Stop Time Status Last Admin Dose Admin Metoprolol Succinate 100 mg DAILY PO 06/22/25 10:00 06/24/25 10:27 100 MG Atorvastatin Calcium 80 mg HS PO 06/21/25 22:00 06/23/25 21:55 80 MG Diagnostic Test (Pha) 1 strip ACHS 06/21/25 22:00 06/24/25 06:19 1 STRIP Insulin Human Regular ACHS SC 06/21/25 22:00 Dextrose 50 ml UD PRN IV 06/21/25 20:00 Ondansetron HCl 4 mg Q4HP PRN IV 06/21/25 20:00 Acetaminophen 650 mg Q6HP PRN PO 06/21/25 20:00 06/23/25 17:12 650 MG Nitroglycerin 0.4 mg Q5MINP PRN SL 06/21/25 20:00 06/23/25 08:21 0.4 MG Morphine Sulfate 2 mg Q30M PRN IV 06/21/25 20:00 Amiodarone HCl 200 mg Q12HR PO 06/22/25 22:00 06/24/25 10:26 200 MG Enoxaparin Sodium 140 mg Q12HR SC 06/22/25 10:00 06/24/25 10:30 140 MG Acetaminophen/ Hydrocodone Bitart 1 tab Q4HPRN PRN PO 06/22/25 23:30 06/24/25 10:27 1 TAB Laboratory Results Laboratory Tests 06/21/25 17:26 06/22/25 04:39 Urinalysis Test 06/22/25 11:00 Urine Color Yellow (Yellow) Urine Clarity Turbid (Clear) H Urine pH 6.0 (5.0-9.0) Urine Specific Dante 1.034 (1.001-1.035) Urine Protein Trace (Negative) H Urine Ketones Negative (Negative) Urine Blood Trace /uL (Negative) H Urine Nitrite Negative (Negative) Urine Bilirubin Negative (Negative) Urine Urobilinogen 2 mg/dL (Negative) H Urine Leukocyte Esterase 1+ /uL (Negative) Urine RBC 3 /hpf (0 - 4) Urine Microscopic WBC 6 /HPF (0-5) H Urine Squamous Epithelial Cells Mod /hpf (<5) Urine Bacteria Few /hpf (None Seen) H Urine Mucus Few (None Seen) Urine Glucose Normal mg/dL (Normal) Assessment/Plan Assessment/Plan Impression: -AFib with RVR -hypothyroidism -primary hypertension -dyslipidemia -diabetes mellitus -obesity Plan: Events: Patient is beta blockers and amiodarone were held yesterday evening. Had AFib with RVR today. Converted back to sinus rhythm after receiving beta- jayne therapy and amiodarone p.o.. Apparently, patient is to have stress test which will be performed on Thursday. Patient is agreeable -pacemaker interrogation -cardiology consultation -continue antiarrhythmics -thyroid ultrasound: Unremarkable -regular insulin sliding scale -repeat labs in a.m. Total time spent with patient discussing and formulating plan of care: 35 minutes. Plan discussed with: Patient Date of Service: Jun 24, 2025 Billing Provider: LION LEARY DO Common Visit Codes: [id number] INP/OBS CARE(HIGH) LION LEARY DO Jun 24, 2025 13:21
--- NOTE | 2025-06-24 14:49 | DVHPN2 ---
Consult Progress Note Subjective Other Systems: Patient currently in sinus bradycardia on residential monitor at time of assessment quality assurance monitor body reviewed and patient went into atrial fibrillation with a rapid ventricular response overnight. Objective vital signs Vital Sign Date Time Temp Pulse Resp B/P (MAP) Pulse Ox O2 Delivery O2 Flow Rate FiO2 06/24/25 10:27 63 147/76 06/24/25 09:00 97.8 18 97 97.8 06/24/25 08:00 Room Air* 0 21 Total Intake and Output 06/23/25 06/23/25 06/24/25 15:00 23:00 07:00 Intake Total 230 ml 800 ml 200 ml Balance 230 ml 800 ml 200 ml medications Current Medications Medications Dose Ordered Sig/Prashant Route Start Time Stop Time Status Last Admin Dose Admin Metoprolol Succinate 100 mg DAILY PO 06/22/25 10:00 06/24/25 10:27 100 MG Atorvastatin Calcium 80 mg HS PO 06/21/25 22:00 06/23/25 21:55 80 MG Diagnostic Test (Pha) 1 strip ACHS 06/21/25 22:00 06/24/25 06:19 1 STRIP Insulin Human Regular ACHS SC 06/21/25 22:00 Dextrose 50 ml UD PRN IV 06/21/25 20:00 Ondansetron HCl 4 mg Q4HP PRN IV 06/21/25 20:00 Acetaminophen 650 mg Q6HP PRN PO 06/21/25 20:00 06/23/25 17:12 650 MG Nitroglycerin 0.4 mg Q5MINP PRN SL 06/21/25 20:00 06/23/25 08:21 0.4 MG Morphine Sulfate 2 mg Q30M PRN IV 06/21/25 20:00 Amiodarone HCl 200 mg Q12HR PO 06/22/25 22:00 06/24/25 10:26 200 MG Enoxaparin Sodium 140 mg Q12HR SC 06/22/25 10:00 06/24/25 10:30 140 MG Acetaminophen/ Hydrocodone Bitart 1 tab Q4HPRN PRN PO 06/22/25 23:30 06/24/25 10:27 1 TAB Examination: GENERAL:Normal, LUNGS:Normal, CVS:Normal, NEURO:Normal laboratory and microbiology Laboratory Tests 06/22/25 04:39 06/21/25 17:26 Test 06/22/25 04:39 Range/Units Serum Glucose 92 74-106 mg/dL Problem List/Assessment/Plan Problem List/Assessment/Plan Atrial fibrillation with rapid ventricular response, now normal sinus rhythm Chest pain, rule out coronary ischemia Chronic compensated HFpEF, NYHA class II Cardiac arrest x2 Paroxysmal atrial fibrillation with hx of direct current cardioversion (on amiodarone and Eliquis) Presence of ICD (Medtronic) Hyperlipidemia Rule out thyroid dysfunction Morbid obesity Plan/Recommendations (Dr. Lan): * Transthoracic echocardiogram reveals EF 65% * [id number] VASc score: 4 points, HAS-BLED score: 1 point * Therapeutic Lovenox while inpatient, transition back to DOAC (Eliquis) when appropriate * Beta-jayne for rate control * Continue patient's oral amiodarone * Monitor and replete electrolytes as needed, keep potassium greater than four and magnesium greater than two * ICD interrogation: EZEQUIEL 5.3 years. No device or lead function issues noted per report. Multiple episodes of atrial fibrillation with RVR noted * Close cardiac surveillance Plan discussed and reviewed with . The patient is in normal sinus rhythm at time of assessment and denies any cardiac symptoms at this time. Plan for possible stress test. Plan discussed with the patient who is agreeable to undergo stress test. TSH level noted to be extremely low. High T3 and T4 labs. Primary care team to manage thyroid function. We will consider nuclear stress test with stable thyroid function. Further recommendations per clinical course and progression. Thank you for allowing us to care for this patient. Please call with any questions or concerns. This medical document was created using an electronic medical record system with voice recognition software and computerized dictation system. Although this document has been carefully reviewed, there might still be some phonetic and typographical errors. Occasional wrong-word or ``sound-alike substitutions may have occurred due to the inherent limitations of voice recognition software. These areas are purely typographical due to imperfections of the software programs and do not reflect any compromise in the patient's medical care. Please read the chart carefully and recognize, using context, where these substitutions have occurred. Plan discussed with: Patient Date of Service: Jun 24, 2025 Billing Provider: LYNNE MARTINES Common Visit Codes: [id number] INP/OBS CARE(HIGH) LYNNE MARTINES Jun 24, 2025 14:49
--- NOTE | 2025-06-24 22:30 | DVHPN2 ---
Consult Progress Note Subjective Other Systems: Patient was seen and evaluated in follow up. Patient currently in sinus bradycardia on case monitor at time of assessment.monitor and storage bin tender reviewed and patient went into atrial fibrillation with a rapid ventricular response overnight. Telemetry reviewed. Objective vital signs Vital Sign Date Time Temp Pulse Resp B/P (MAP) Pulse Ox O2 Delivery O2 Flow Rate FiO2 06/24/25 13:00 97.2 59 18 172/70 (104) 99 97.2 06/24/25 08:00 Room Air* 0 21 Total Intake and Output 06/23/25 06/23/25 06/24/25 15:00 23:00 07:00 Intake Total 230 ml 800 ml 200 ml Balance 230 ml 800 ml 200 ml medications Current Medications Medications Dose Ordered Sig/Prashant Route Start Time Stop Time Status Last Admin Dose Admin Metoprolol Succinate 100 mg DAILY PO 06/22/25 10:00 06/24/25 10:27 100 MG Atorvastatin Calcium 80 mg HS PO 06/21/25 22:00 06/23/25 21:55 80 MG Diagnostic Test (Pha) 1 strip ACHS 06/21/25 22:00 06/24/25 06:19 1 STRIP Insulin Human Regular ACHS SC 06/21/25 22:00 Dextrose 50 ml UD PRN IV 06/21/25 20:00 Ondansetron HCl 4 mg Q4HP PRN IV 06/21/25 20:00 Acetaminophen 650 mg Q6HP PRN PO 06/21/25 20:00 06/23/25 17:12 650 MG Nitroglycerin 0.4 mg Q5MINP PRN SL 06/21/25 20:00 06/23/25 08:21 0.4 MG Morphine Sulfate 2 mg Q30M PRN IV 06/21/25 20:00 Amiodarone HCl 200 mg Q12HR PO 06/22/25 22:00 06/24/25 10:26 200 MG Enoxaparin Sodium 140 mg Q12HR SC 06/22/25 10:00 06/24/25 10:30 140 MG Acetaminophen/ Hydrocodone Bitart 1 tab Q4HPRN PRN PO 06/22/25 23:30 06/24/25 10:27 1 TAB Examination: GENERAL:Normal, LUNGS:Normal, CVS:Normal, NEURO:Normal laboratory and microbiology Laboratory Tests 06/22/25 04:39 06/21/25 17:26 Test 06/22/25 04:39 Range/Units Serum Glucose 92 74-106 mg/dL Problem List/Assessment/Plan Problem List/Assessment/Plan Problem List Atrial fibrillation with rapid ventricular response, now normal sinus rhythm. Chest pain, rule out coronary ischemia. Chronic compensated HFpEF, NYHA class II. Cardiac arrest x2. Paroxysmal atrial fibrillation with hx of direct current cardioversion (on amiodarone and Eliquis). Presence of ICD (Medtronic). Hyperlipidemia. Rule out thyroid dysfunction. Morbid obesity. Plan/Recommendation Continued all current supportive medical care. Patient has been seen by Claire Toro NP on my behalf, her and I discussed the plan with the patient. Transthoracic echocardiogram reveals EF 65%. [id number] VASc score: 4 points, HAS-BLED score: 1 point. Therapeutic Lovenox while inpatient, transition back to DOAC (Eliquis) when appropriate. Beta-jayne for rate control. Continue patient's oral amiodarone Monitor and replete electrolytes as needed, keep potassium greater than four and magnesium greater than two ICD interrogation: EZEQUIEL 5.3 years. No device or lead function issues noted per report. Multiple episodes of atrial fibrillation with RVR noted. Close cardiac surveillance. The patient is in normal sinus rhythm at time of assessment and denies any cardiac symptoms at this time. Plan for possible stress test. Plan discussed with the patient who is agreeable to undergo stress test. TSH level noted to be extremely low. High T3 and T4 labs. Primary care team to manage thyroid function. We will consider nuclear stress test with stable thyroid function. Further recommendations per clinical course and progression. Additional plan as per the hospital course. Plan discussed with: Patient Date of Service: Jun 24, 2025 Billing Provider: FLORIAN LENNON MD Cardiology Common Codes: [id number] HOSP CARE(High FLORIAN LENNON MD Jun 24, 2025 16:29
[2025-06-25] VITALS (8 sets, daily range): BP systolic 128–178; BP diastolic 62–93; PULSE 50–64; RESP 16–20; TEMP 97–99.3; O2SAT 95–99
--- NOTE | 2025-06-25 09:42 | ECG ---
[facility] Test Date: 2025-06-24 Test Time: 02:40:14 Pat Name: ANALIA GONZALEZ Department: Room: [address] [place] [address] 2 Gender: F Sub Master: CATRINA : 1975 Requested By: TATUM BUCKNER Order Number: [id number] Reading MD: Ryan Springer Measurements Intervals Ira Rate: 58 P: 60 ND: 150 QRS: 52 QRSD: 102 T: 15 QT: 437 QTc: 430 Interpretive Statements Sinus rhythm RSR' in V1 or V2, probably normal variant Minimal ST depression, inferior leads Borderline ST elevation, lateral leads Electronically Signed On 06-29-2025 8:16:41 PST by Ryan Springer Please click the below link to view image of tracing.
--- NOTE | 2025-06-25 11:59 | DVHPN2 ---
Consult Progress Note Subjective Other Systems: Patient is in sinus rhythm at time of assessment. Patient reports one episode of chest pain earlier this morning and one episode last night. Objective vital signs Vital Sign Date Time Temp Pulse Resp B/P (MAP) Pulse Ox O2 Delivery O2 Flow Rate FiO2 06/25/25 09:25 61 144/72 06/25/25 09:14 98.2 16 97 98.2 06/25/25 08:00 Room Air* 0 21 Total Intake and Output 06/24/25 06/24/25 06/25/25 15:00 23:00 07:00 Intake Total 460 ml 600 ml 594 ml Balance 460 ml 600 ml 594 ml medications Current Medications Medications Dose Ordered Sig/Prashant Route Start Time Stop Time Status Last Admin Dose Admin Metoprolol Succinate 100 mg DAILY PO 06/22/25 10:00 06/25/25 09:25 100 MG Atorvastatin Calcium 80 mg HS PO 06/21/25 22:00 06/24/25 21:16 80 MG Diagnostic Test (Pha) 1 strip ACHS 06/21/25 22:00 06/25/25 05:58 1 STRIP Insulin Human Regular ACHS SC 06/21/25 22:00 Dextrose 50 ml UD PRN IV 06/21/25 20:00 Ondansetron HCl 4 mg Q4HP PRN IV 06/21/25 20:00 Acetaminophen 650 mg Q6HP PRN PO 06/21/25 20:00 06/23/25 17:12 650 MG Nitroglycerin 0.4 mg Q5MINP PRN SL 06/21/25 20:00 06/23/25 08:21 0.4 MG Morphine Sulfate 2 mg Q30M PRN IV 06/21/25 20:00 Amiodarone HCl 200 mg Q12HR PO 06/22/25 22:00 06/25/25 09:24 200 MG Enoxaparin Sodium 140 mg Q12HR SC 06/22/25 10:00 06/24/25 21:18 140 MG Acetaminophen/ Hydrocodone Bitart 1 tab Q4HPRN PRN PO 06/22/25 23:30 06/24/25 21:17 1 TAB Examination: GENERAL:Normal, LUNGS:Normal, CVS:Normal, NEURO:Normal laboratory and microbiology Laboratory Tests 06/22/25 04:39 06/21/25 17:26 Test 06/22/25 04:39 Range/Units Serum Glucose 92 74-106 mg/dL Problem List/Assessment/Plan Problem List/Assessment/Plan Atrial fibrillation with rapid ventricular response, now normal sinus rhythm Chest pain, rule out coronary ischemia Chronic compensated HFpEF, NYHA class II Cardiac arrest x2 Paroxysmal atrial fibrillation with hx of direct current cardioversion (on amiodarone and Eliquis) Presence of ICD (Medtronic) Hyperlipidemia Rule out thyroid dysfunction Morbid obesity Plan/Recommendations (Dr. Lan): * Transthoracic echocardiogram reveals EF 65% * [id number] VASc score: 4 points, HAS-BLED score: 1 point * Therapeutic Lovenox while inpatient, transition back to DOAC (Eliquis) when appropriate * Beta-jayne for rate control * Continue patient's oral amiodarone * Monitor and replete electrolytes as needed, keep potassium greater than four and magnesium greater than two * ICD interrogation: EZEQUIEL 5.3 years. No device or lead function issues noted per report. Multiple episodes of atrial fibrillation with RVR noted * Close cardiac surveillance Plan discussed and reviewed with . The patient is in normal sinus rhythm at time of assessment and reports chest pain last night and earlier this morning unrelated to AFib episodes. Plan for stress test on 06/26/2025. Plan discussed with the patient who is agreeable to undergo stress test. TSH level noted to be extremely low. High T3 and T4 labs. Thyroid antibody labs pending. Primary care team to manage thyroid function. We will consider nuclear stress test with stable thyroid function. Further recommendations per clinical course and progression. Thank you for allowing us to care for this patient. Please call with any questions or concerns. This medical document was created using an electronic medical record system with voice recognition software and computerized dictation system. Although this document has been carefully reviewed, there might still be some phonetic and typographical errors. Occasional wrong-word or ``sound-alike substitutions may have occurred due to the inherent limitations of voice recognition software. These areas are purely typographical due to imperfections of the software programs and do not reflect any compromise in the patient's medical care. Please read the chart carefully and recognize, using context, where these substitutions have occurred. Plan discussed with: Patient Date of Service: Jun 25, 2025 Billing Provider: LYNNE MARTINES INSURANCE [employer]ER Common Visit Codes: [id number] INP/OBS CARE(HIGH) LYNNE MARTINES [facility] Jun 25, 2025 11:59
[2025-06-25 18:36] LABS: Hematocrit 44.5 % (36.0-46.0); Hemoglobin 15.1 g/dL (12.2-16.2); Mean Corpuscular Hemoglobin 29.8 pg (28.0-32.0); Mean Corpuscular Volume 88.0 fL (80.0-100.0); Nucleated Red Blood Cells % 0.1 %
[2025-06-25 18:52] LABS: Alanine Aminotransferase 37 U/L (7-40); Albumin 4.1 g/dL (3.2-4.8); Anion Gap 9 (5-15); BUN/Creatinine Ratio 27.6 (10.0-20.0); Bilirubin, Total 0.8 mg/dL (0.2-1.0); Blood Urea Nitrogen 21 mg/dL (9-23); Calcium 9.7 mg/dL (8.7-10.4); Carbon Dioxide 30 mmol/L (20-31); Chloride 102 mmol/L (98-107); Glucose 89 mg/dL (74-106); Potassium 4.4 mmol/L (3.5-5.1); Sodium 141 mmol/L (136-145); Total Protein 7.0 g/dL (5.7-8.2)
[2025-06-25 18:53] LABS: Alkaline Phosphatase 119 U/L (46-116)
--- NOTE | 2025-06-25 18:53 | DVHPN2 ---
Consult Progress Note Subjective Other Systems: Patient was seen and evaluated in follow up. Patient is in sinus rhythm at time of assessment. Patient reports one episode of chest pain earlier this morning and one episode last night. BS are WNL. Telemetry reviewed. Objective vital signs Vital Sign Date Time Temp Pulse Resp B/P (MAP) Pulse Ox O2 Delivery O2 Flow Rate FiO2 06/25/25 12:54 99.3 64 18 178/93 (121) 98 99.3 06/25/25 08:00 Room Air* 0 21 Total Intake and Output 06/24/25 06/24/25 06/25/25 15:00 23:00 07:00 Intake Total 460 ml 600 ml 594 ml Balance 460 ml 600 ml 594 ml medications Current Medications Medications Dose Ordered Sig/Prashant Route Start Time Stop Time Status Last Admin Dose Admin Metoprolol Succinate 100 mg DAILY PO 06/22/25 10:00 06/25/25 09:25 100 MG Atorvastatin Calcium 80 mg HS PO 06/21/25 22:00 06/24/25 21:16 80 MG Diagnostic Test (Pha) 1 strip ACHS 06/21/25 22:00 06/25/25 05:58 1 STRIP Insulin Human Regular ACHS SC 06/21/25 22:00 Dextrose 50 ml UD PRN IV 06/21/25 20:00 Ondansetron HCl 4 mg Q4HP PRN IV 06/21/25 20:00 Acetaminophen 650 mg Q6HP PRN PO 06/21/25 20:00 06/23/25 17:12 650 MG Nitroglycerin 0.4 mg Q5MINP PRN SL 06/21/25 20:00 06/23/25 08:21 0.4 MG Morphine Sulfate 2 mg Q30M PRN IV 06/21/25 20:00 Amiodarone HCl 200 mg Q12HR PO 06/22/25 22:00 06/25/25 09:24 200 MG Enoxaparin Sodium 140 mg Q12HR SC 06/22/25 10:00 06/24/25 21:18 140 MG Acetaminophen/ Hydrocodone Bitart 1 tab Q4HPRN PRN PO 06/22/25 23:30 06/25/25 12:31 1 TAB Examination: GENERAL:Normal, HEENT:Normal, NECK:Normal, LUNGS:Normal, CVS:Normal, SKIN:Normal, NEURO:Normal laboratory and microbiology Laboratory Tests 06/22/25 04:39 06/21/25 17:26 Test 06/22/25 04:39 Range/Units Serum Glucose 92 74-106 mg/dL Problem List/Assessment/Plan Problem List/Assessment/Plan Problem List Atrial fibrillation with rapid ventricular response, now normal sinus rhythm. Chest pain, rule out coronary ischemia. Chronic compensated HFpEF, NYHA class II. Cardiac arrest x2. Paroxysmal atrial fibrillation with hx of direct current cardioversion (on amiodarone and Eliquis). Presence of ICD (Medtronic). Hyperlipidemia. Rule out thyroid dysfunction. Morbid obesity. Plan/Recommendation Continued all current supportive medical care. Patient has been seen by Claire Toro NP on my behalf, her and I discussed the plan with the patient. Transthoracic echocardiogram reveals EF 65%. [id number] VASc score: 4 points, HAS-BLED score: 1 point. Therapeutic Lovenox while inpatient, transition back to DOAC (Eliquis) when appropriate. Beta-jayne for rate control. Continue patient's oral amiodarone. Monitor and replete electrolytes as needed, keep potassium greater than four and magnesium greater than two. ICD interrogation: EZEQUIEL 5.3 years. No device or lead function issues noted per report. Multiple episodes of atrial fibrillation with RVR noted. Close cardiac surveillance. The patient is in normal sinus rhythm at time of assessment and reports chest pain last night and earlier this morning unrelated to AFib episodes. Plan for stress test on 06/26/2025. Plan discussed with the patient who is agreeable to undergo stress test. TSH level noted to be extremely low. High T3 and T4 labs. Thyroid antibody labs pending. Primary care team to manage thyroid function. We will consider nuclear stress test with stable thyroid function. Further recommendations per clinical course and progression. Additional plan as per the hospital course. Plan discussed with: Patient Date of Service: Jun 25, 2025 Billing Provider: FLORIAN LENNON MD Cardiology Common Codes: [id number] HOSP CARE(FLORIAN Lyon MD Jun 25, 2025 13:35
--- NOTE | 2025-06-25 22:48 | DVHPN2 ---
Reviewed: Care Plan, H&P, Labs, Medications Changes from previous H/P or p: No Changes General: Per HPI Objective Vitals Vital Signs Date Time Temp Pulse Resp B/P (MAP) Pulse Ox O2 Delivery O2 Flow Rate FiO2 06/25/25 16:46 98.9 59 16 155/75 (101) 97 98.9 06/25/25 08:00 Room Air* 0 21 Intake/Output Intake and Output 06/25/25 07:00 Intake Total 1654 ml Balance 1654 ml Intake Oral 1654 ml # Voids 15 # Bowel Movements 1 General Appearance: Alert, Oriented X3, Cooperative, No acute distress HEENT: Atraumatic, PERRLA Lungs: Clear to auscultation, Normal air movement Cardiovascular: Normal S1, Normal S2 Abdomen: Normal bowel sounds, Soft, No tenderness, No hepatospenomegaly, No masses Musculoskeletal: Normal sensory function, Normal motor function Skin: Dry, Intact Psych/Mental Status: Mental status NL, Mood NL Medications Current Medications Medications Dose Ordered Sig/Prashant Route Start Time Stop Time Status Last Admin Dose Admin Metoprolol Succinate 100 mg DAILY PO 06/22/25 10:00 06/25/25 09:25 100 MG Atorvastatin Calcium 80 mg HS PO 06/21/25 22:00 06/25/25 21:19 80 MG Insulin Human Regular ACHS SC 06/21/25 22:00 Ondansetron HCl 4 mg Q4HP PRN IV 06/21/25 20:00 Acetaminophen 650 mg Q6HP PRN PO 06/21/25 20:00 06/23/25 17:12 650 MG Nitroglycerin 0.4 mg Q5MINP PRN SL 06/21/25 20:00 06/23/25 08:21 0.4 MG Morphine Sulfate 2 mg Q30M PRN IV 06/21/25 20:00 Amiodarone HCl 200 mg Q12HR PO 06/22/25 22:00 06/25/25 21:18 200 MG Enoxaparin Sodium 140 mg Q12HR SC 06/22/25 10:00 06/25/25 21:12 140 MG Acetaminophen/ Hydrocodone Bitart 1 tab Q4HPRN PRN PO 06/22/25 23:30 06/25/25 12:31 1 TAB Laboratory Results Laboratory Tests 06/25/25 18:16 Chemistry Test 06/25/25 18:16 Albumin 4.1 g/dL (3.2-4.8) Calcium Level 9.7 mg/dL (8.7-10.4) Total Protein 7.0 g/dL (5.7-8.2) LFT Test 06/25/25 18:16 Alanine Aminotransferase (ALT) 37 U/L (7-40) Alkaline Phosphatase 119 U/L (46-116) H Aspartate Amino Transferase (AST) 40 U/L (13-40) Total Bilirubin 0.8 mg/dL (0.2-1.0) Urinalysis Test 06/22/25 11:00 Urine Color Yellow (Yellow) Urine Clarity Turbid (Clear) H Urine pH 6.0 (5.0-9.0) Urine Specific [place] 1.034 (1.001-1.035) Urine Protein Trace (Negative) H Urine Ketones Negative (Negative) Urine Blood Trace /uL (Negative) H Urine Nitrite Negative (Negative) Urine Bilirubin Negative (Negative) Urine Urobilinogen 2 mg/dL (Negative) H Urine Leukocyte Esterase 1+ /uL (Negative) Urine RBC 3 /hpf (0 - 4) Urine Microscopic WBC 6 /HPF (0-5) H Urine Squamous Epithelial Cells Mod /hpf (<5) Urine Bacteria Few /hpf (None Seen) H Urine Mucus Few (None Seen) Urine Glucose Normal mg/dL (Normal) Assessment/Plan Assessment/Plan Impression: -AFib with RVR -hypothyroidism -primary hypertension -dyslipidemia -diabetes mellitus -obesity Plan: Events: Patient is beta blockers and amiodarone were held yesterday evening. Had AFib with RVR today. Converted back to sinus rhythm after receiving beta- jayne therapy and amiodarone p.o.. Apparently, patient is to have stress test which will be performed on Thursday. Patient is agreeable -pacemaker interrogation -cardiology consultation -continue antiarrhythmics -thyroid ultrasound: Unremarkable -regular insulin sliding scale -repeat labs in a.m. Total time spent with patient discussing and formulating plan of care: 35 minutes. possible discharge in 24 hours Plan discussed with: Patient Date of Service: Jun 25, 2025 Billing Provider: LION LEARY DO Common Visit Codes: [id number] INP/OBS CARE(HIGH) LION LEARY DO Jun 25, 2025 22:48
[2025-06-26] VITALS (8 sets, daily range): BP systolic 140–154; BP diastolic 51–89; PULSE 58–86; RESP 16–19; TEMP 97–97.9; O2SAT 96–100
[2025-06-26] MEDS: MORPHINE SULFATE 4 MG/ML SYR/VIAL IV PRN (02:07)
--- NOTE | 2025-06-26 08:11 | ECG ---
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
[2025-06-26] MEDS: REGADENOSON 0.4 MG/5 ML SYRG IV ONE ×2 (10:08)
--- NOTE | 2025-06-26 10:56 | DVHPN2 ---
Subjective Patient denies any symptoms at this time. Did report having some substernal chest pain in the a.m.. Reviewed: Care Plan, H&P, Labs, Medications Changes from previous H/P or p: No Changes General: Per HPI Objective Vitals Vital Signs Date Time Temp Pulse Resp B/P (MAP) Pulse Ox O2 Delivery O2 Flow Rate FiO2 06/26/25 08:58 97.5 58 18 153/89 (110) 97 97.5 06/26/25 08:00 Nasal Cannula* 2 28 Intake/Output Intake and Output 06/26/25 07:00 Intake Total 1230 ml Output Total 0 ml Balance 1230 ml Intake Oral 1230 ml Output Stool Total 0 ml # Voids 8 General Appearance: Alert, Oriented X3, Cooperative, No acute distress HEENT: Atraumatic, PERRLA Lungs: Clear to auscultation, Normal air movement Cardiovascular: Normal S1, Normal S2 Abdomen: Normal bowel sounds, Soft, No tenderness, No hepatospenomegaly, No masses Musculoskeletal: Normal sensory function, Normal motor function Skin: Dry, Intact Psych/Mental Status: Mental status NL, Mood NL Medications Current Medications Medications Dose Ordered Sig/Prashant Route Start Time Stop Time Status Last Admin Dose Admin Metoprolol Succinate 100 mg DAILY PO 06/22/25 10:00 06/25/25 09:25 100 MG Atorvastatin Calcium 80 mg HS PO 06/21/25 22:00 06/25/25 21:19 80 MG Insulin Human Regular ACHS SC 06/21/25 22:00 Ondansetron HCl 4 mg Q4HP PRN IV 06/21/25 20:00 Acetaminophen 650 mg Q6HP PRN PO 06/21/25 20:00 06/23/25 17:12 650 MG Nitroglycerin 0.4 mg Q5MINP PRN SL 06/21/25 20:00 06/23/25 08:21 0.4 MG Morphine Sulfate 2 mg Q30M PRN IV 06/21/25 20:00 06/26/25 07:46 2 MG Amiodarone HCl 200 mg Q12HR PO 06/22/25 22:00 06/25/25 21:18 200 MG Enoxaparin Sodium 140 mg Q12HR SC 06/22/25 10:00 06/25/25 21:12 140 MG Acetaminophen/ Hydrocodone Bitart 1 tab Q4HPRN PRN PO 06/22/25 23:30 06/25/25 12:31 1 TAB Laboratory Results Laboratory Tests 06/25/25 18:16 Chemistry Test 06/25/25 18:16 Albumin 4.1 g/dL (3.2-4.8) Calcium Level 9.7 mg/dL (8.7-10.4) Total Protein 7.0 g/dL (5.7-8.2) LFT Test 06/25/25 18:16 Alanine Aminotransferase (ALT) 37 U/L (7-40) Alkaline Phosphatase 119 U/L (46-116) H Aspartate Amino Transferase (AST) 40 U/L (13-40) Total Bilirubin 0.8 mg/dL (0.2-1.0) Urinalysis Test 06/22/25 11:00 Urine Color Yellow (Yellow) Urine Clarity Turbid (Clear) H Urine pH 6.0 (5.0-9.0) Urine Specific [place] 1.034 (1.001-1.035) Urine Protein Trace (Negative) H Urine Ketones Negative (Negative) Urine Blood Trace /uL (Negative) H Urine Nitrite Negative (Negative) Urine Bilirubin Negative (Negative) Urine Urobilinogen 2 mg/dL (Negative) H Urine Leukocyte Esterase 1+ /uL (Negative) Urine RBC 3 /hpf (0 - 4) Urine Microscopic WBC 6 /HPF (0-5) H Urine Squamous Epithelial Cells Mod /hpf (<5) Urine Bacteria Few /hpf (None Seen) H Urine Mucus Few (None Seen) Urine Glucose Normal mg/dL (Normal) Labs and/or images reviewed: Labs reviewed by me, Image(s) reviewed by me Assessment/Plan Assessment/Plan Impression: -AFib with RVR -hypothyroidism -primary hypertension -dyslipidemia -diabetes mellitus -obesity Plan: Events: Patient to Lexiscan stress test -pacemaker interrogation -cardiology consultation: Recommendations reviewed -continue antiarrhythmics -endocrinology consultation -regular insulin sliding scale Total time spent with patient discussing and formulating plan of care: 35 minutes. This medical document was created using an electronic medical record system with We[employer]ort[employer] system. Although this document has been carefully reviewed, there may still be some phonetic and typographical errors. These areas are purely typographical due to imperfections of the software programs, and do not reflect any compromise in the patient's medical care. Plan discussed with: Patient, Other (RN) My Orders Orders - TATUM BUCKNER NP Procedure Category Date Status Time PTPTT LAB 06/26/25 Logged 09:32 D-Dimer LAB 06/26/25 Logged 09:32 * Endocrinology CONS 06/26/25 Transmitted Consult 09:32 Date of Service: Jun 26, 2025 Billing Provider: TATUM BUCKNER NP Common Visit Codes: [id number] INP/OBS CARE(HIGH) TATUM BUCKNER NP Jun 26, 2025 10:56
--- NOTE | 2025-06-26 11:09 | ECG ---
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
--- NOTE | 2025-06-26 13:01 | DVHSR ---
APPROVED REPORT Exam: Nuclear Stress Test BMI: 0 Stress Test Details HR Max Heart Rate (APMHR): 172.610775 bpm Target HR (85% APMHR): 146.712641 bpm BP ECG Stress ECG Conclusion lvef 53% inferior wall fixed defect NM EXAM: Myocardial Perfusion REST/STRESS Imaging Protocol: Rest Tc-99m/Stress Tc-99m 1 day Resting Data Rest SPECT myocardial perfusion imaging was performed in supine position 60 minutes following the intravenous injection of 10.5 mCi of Tc-99m Sestamibi. Time of rest injection: 08:05 Date: 06/26/2025 Time of rest imagin:05 Date: 06/26/2025 Administration Route: IV Administration Site: Left Arm Pharmacologic Stress Pharmacologic stress test was performed by injecting Regadenoson 0.4 mg IV push followed by the intravenous injection of 31.9 mCi of Tc-99m Sestamibi. Time of stress injection: 10:10 Date: 06/26/2025 Time of stress imagin:10 Date: 06/26/2025 Administration Route: IV Administration Site: Left Arm Gated Stress SPECT was performed 60 minutes after stress injection. The images were gated to evaluate regional wall motion and calculate left ventricular ejection fraction. Stress only was performed in the Supine position. Nuclear Conclusion Nuclear Findings: negative for ischemia lvef 53% inferior wall fixed defect
[2025-06-26 13:59] LABS: INR 1.04 (0.9-1.15); Partial Thromboplastin Time 26.8 SEC (24.5-34.5); Prothrombin Time 11.0 sec (9.3-11.8)
--- NOTE | 2025-06-26 14:48 | DVHPN2 ---
Consult Progress Note Date Seen: Jun 26, 2025 Subjective Review of Systems: CVS:Normal, RESPIRATORY:Normal, NEURO:Normal Objective vital signs Vital Sign Date Time Temp Pulse Resp B/P (MAP) Pulse Ox O2 Delivery O2 Flow Rate FiO2 06/26/25 13:30 97.0 63 16 144/66 (92) 97 97.0 06/26/25 08:00 Nasal Cannula* 2 28 Total Intake and Output 06/25/25 06/25/25 06/26/25 15:00 23:00 07:00 Intake Total 230 ml 1000 ml Output Total 0 ml Balance 230 ml 0 ml 1000 ml medications Current Medications Medications Dose Ordered Sig/Prashant Route Start Time Stop Time Status Last Admin Dose Admin Metoprolol Succinate 100 mg DAILY PO 06/22/25 10:00 06/26/25 12:00 100 MG Atorvastatin Calcium 80 mg HS PO 06/21/25 22:00 06/25/25 21:19 80 MG Ondansetron HCl 4 mg Q4HP PRN IV 06/21/25 20:00 Acetaminophen 650 mg Q6HP PRN PO 06/21/25 20:00 06/23/25 17:12 650 MG Nitroglycerin 0.4 mg Q5MINP PRN SL 06/21/25 20:00 06/23/25 08:21 0.4 MG Morphine Sulfate 2 mg Q30M PRN IV 06/21/25 20:00 06/26/25 07:46 2 MG Amiodarone HCl 200 mg Q12HR PO 06/22/25 22:00 06/26/25 12:01 200 MG Enoxaparin Sodium 140 mg Q12HR SC 06/22/25 10:00 06/25/25 21:12 140 MG Acetaminophen/ Hydrocodone Bitart 1 tab Q4HPRN PRN PO 06/22/25 23:30 06/25/25 12:31 1 TAB Examination: LUNGS:Normal, CVS:Normal, NEURO:Normal laboratory and microbiology Laboratory Tests 06/25/25 18:16 Test 06/25/25 18:16 Range/Units Serum Glucose 89 74-106 mg/dL Problem List/Assessment/Plan Problem List/Assessment/Plan Chest pain, coronary ischemic ruled out Paroxysmal Atrial fibrillation with rapid ventricular response, now normal sinus rhythm Hx of direct current cardioversion (on amiodarone and Eliquis) Chronic compensated HFpEF, NYHA class II Cardiac arrest x2 Presence of ICD (Medtronic) Hyperlipidemia Rule out thyroid dysfunction Morbid obesity Plan/Recommendations (Dr. Lan): * Transthoracic echocardiogram reveals EF 65% * Nuclear cardiolite stress test, negative for ischemia * Therapeutic Lovenox while inpatient, transition back to DOAC (Eliquis) when appropriate * [id number] VASc score: 4 points, HAS-BLED score: 1 point * Rate control, beta-jayne * Antiarrhythmic therapy, amiodarone * Monitor and replete electrolytes as needed, keep potassium greater than four and magnesium greater than two * ICD interrogation: EZEQUIEL 5.3 years. No device or lead function issues noted per report. Multiple episodes of atrial fibrillation with RVR noted There is no further cardiac work-up indicated at this time. Kindly call with any questions or concerns. Thank you for allowing us to care for this patient. This medical document was created using an electronic medical record system with voice recognition software and computerized dictation system. Although this document has been carefully reviewed, there might still be some phonetic and typographical errors. Occasional wrong-word or ``sound-alike substitutions may have occurred due to the inherent limitations of voice recognition software. These areas are purely typographical due to imperfections of the software programs and do not reflect any compromise in the patient's medical care. Please read the chart carefully and recognize, using context, where these substitutions have occurred. Plan discussed with: Patient, Other Date of Service: Jun 26, 2025 Billing Provider: ANGELITA SOMMERS Cardiology Common Codes: [id number] INP/OBS CARE(Mod) ANGELITA SOMMERS Jun 26, 2025 14:48
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
--- NOTE | 2025-06-27 | DVHPN2 ---
Consult Progress Note Date Seen: Jun 26, 2025 Subjective Other Systems: Patient was seen and evaluated in follow up. Patient is on 2 LPM NC. Nuclear cardiolite stress test, negative for ischemia. Telemetry reviewed. Objective vital signs Vital Sign Date Time Temp Pulse Resp B/P (MAP) Pulse Ox O2 Delivery O2 Flow Rate FiO2 06/26/25 20:49 97.4 64 18 154/79 (104) 97 97.4 06/26/25 08:00 Nasal Cannula* 2 28 Total Intake and Output 06/25/25 06/25/25 06/26/25 15:00 23:00 07:00 Intake Total 230 ml 1000 ml Output Total 0 ml Balance 230 ml 0 ml 1000 ml medications Current Medications Medications Dose Ordered Sig/Prashant Route Start Time Stop Time Status Last Admin Dose Admin Metoprolol Succinate 100 mg DAILY PO 06/22/25 10:00 06/26/25 12:00 100 MG Atorvastatin Calcium 80 mg HS PO 06/21/25 22:00 06/26/25 21:20 80 MG Ondansetron HCl 4 mg Q4HP PRN IV 06/21/25 20:00 Acetaminophen 650 mg Q6HP PRN PO 06/21/25 20:00 06/23/25 17:12 650 MG Nitroglycerin 0.4 mg Q5MINP PRN SL 06/21/25 20:00 06/23/25 08:21 0.4 MG Morphine Sulfate 2 mg Q30M PRN IV 06/21/25 20:00 06/26/25 07:46 2 MG Amiodarone HCl 200 mg Q12HR PO 06/22/25 22:00 06/26/25 21:19 200 MG Enoxaparin Sodium 140 mg Q12HR SC 06/22/25 10:00 06/26/25 21:20 140 MG Acetaminophen/ Hydrocodone Bitart 1 tab Q4HPRN PRN PO 06/22/25 23:30 06/25/25 12:31 1 TAB Examination: GENERAL:Normal, HEENT:Normal, LUNGS:Normal, CVS:Normal, SKIN:Normal, NEURO:Normal laboratory and microbiology Laboratory Tests 06/25/25 18:16 Test 06/25/25 18:16 Range/Units Serum Glucose 89 74-106 mg/dL Problem List/Assessment/Plan Problem List/Assessment/Plan Problem List Atrial fibrillation with rapid ventricular response, now normal sinus rhythm. Chest pain, rule out coronary ischemia. Chronic compensated HFpEF, NYHA class II. Cardiac arrest x2. Paroxysmal atrial fibrillation with hx of direct current cardioversion (on amiodarone and Eliquis). Presence of ICD (Medtronic). Hyperlipidemia. Rule out thyroid dysfunction. Morbid obesity. Plan/Recommendation Continued all current supportive medical care. Patient has been seen by Claire Toro NP on my behalf, her and I discussed the plan with the patient. Transthoracic echocardiogram reveals EF 65%. Nuclear cardiolite stress test, negative for ischemia. Therapeutic Lovenox while inpatient, transition back to DOAC (Eliquis) when appropriate. [id number] VASc score: 4 points, HAS-BLED score: 1 point. Rate control, beta-jayne. Antiarrhythmic therapy, amiodarone. Monitor and replete electrolytes as needed, keep potassium greater than four and magnesium greater than two. ICD interrogation: EZEQUIEL 5.3 years. No device or lead function issues noted per report. Multiple episodes of atrial fibrillation with RVR noted. Additional plan as per the hospital course. Plan discussed with: Patient Date of Service: Jun 26, 2025 Billing Provider: FLORIAN LENNON MD Cardiology Common Codes: 71117-[id number] HOSP CARE(High FLORIAN LENNON MD Jun 27, 2025 00:00
[2025-06-27 01:00] VITALS: BP 150/83; PULSE 58; RESP 20; TEMP 98; O2SAT 97
[2025-06-27 05:00] VITALS: BP 158/77; PULSE 56; RESP 20; TEMP 97.4; O2SAT 100
[2025-06-27 06:14] LABS: Free T4 (Free Thyroxine) 3.0 ng/dL (0.89-1.76)
[2025-06-27 08:00] VITALS: PULSE 56; RESP 18; O2SAT 97
[2025-06-27 09:00] VITALS: BP 163/61; PULSE 57; RESP 18; TEMP 97.9; O2SAT 100
--- NOTE | 2025-06-27 09:09 | DVH ---
EXAM: CT CHEST WITHOUT CONTRAST History: Chest pain Comparison Study: None TECHNIQUE: Multidetector CT of the chest was performed. Imaging was performed without IV contrast. Axial, coronal, and sagittal multiplanar reformats were obtained from the axial data set by the technologist. Radiation Dose : CTDI vol 29.88 mGy, DLP 1051.7 mGy*cm. FINDINGS: Evaluation is degraded by respiratory motion. Lungs: The lungs are clear. Pleura: Unremarkable Heart/Great vessels: There is mild cardiomegaly. The aorta is unremarkable. Left-sided single chamber ICD. Mediastinum: Unremarkable. Soft tissues/Bones: Unremarkable Upper abdomen: Prior cholecystectomy. Small hiatal hernia. IMPRESSION: 1. No acute intrathoracic abnormality. 2. Incidental findings as detailed.
[2025-06-27] MEDS: KETOROLAC TROMETH 30 MG/ML 1ML VIAL IV ONE (09:16)
[2025-06-27] MEDS ORDERED: HYDR-4902 PO (09:42)
[2025-06-27] MEDS ORDERED: METH5TAB98 PO (09:53)
[2025-06-27] MEDS ORDERED: PRED20TA2 PO (09:53)
--- NOTE | 2025-06-27 09:56 | DVHDS2 ---
Discharge Summary Date of Admission Jun 21, 2025 at 19:48 Date of Discharge: Jun 27, 2025 Admitting Diagnosis AFib with RVR Labs/Diagnostic Data: Laboratory Results Test 06/27/25 04:48 06/26/25 13:07 06/26/25 06:19 06/25/25 18:16 Thyroid Stimulating Hormone (TSH) 0.01 uIU/mL (0.55-4.78) Free Thyroxine (T4) Calculated 3.00 ng/dL (0.89-1.76) Total Triiodothyronine (TT3) 3.14 ng/mL (0.60-1.81) Prothrombin Time 11.0 sec (9.3-11.8) Prothrombin Time INR 1.04 (0.9-1.15) Activated Partial Thromboplast Time 26.8 SEC (24.5-34.5) D-Dimer, Quantitative 0.21 mg/L FEU (0.0-0.49) POC Glucose 105 mg/dl (70-106) White Blood Count 9.4 10^3/uL (4.4-10.8) Red Blood Count 5.06 10^6/uL (4.0-5.20) Hemoglobin 15.1 g/dL (12.2-16.2) Hematocrit 44.5 % (36.0-46.0) Mean Corpuscular Volume 88.0 fL (80.0-100.0) Mean Corpuscular Hemoglobin 29.8 pg (28.0-32.0) Mean Corpuscular Hemoglobin Concent 33.8 g/dL (32.0-36.0) Red Cell Distribution Width 13.1 % (11.8-14.3) Platelet Count 204 10^3/uL (140-450) Mean Platelet Volume 9.9 fL (6.9-10.8) Neutrophils (%) (Auto) 50.4 % (37.0-80.0) Lymphocytes (%) (Auto) 35.9 % (10.0-50.0) Monocytes (%) (Auto) 10.0 % (0.0-12.0) Eosinophils (%) (Auto) 3.2 % (0.0-7.0) Basophils (%) (Auto) 0.5 % (0.0-2.0) Neutrophils # (Auto) 4.8 10 ^3/uL (1.6-8.6) Lymphocytes # (Auto) 3.4 10 ^3/uL (0.4-5.4) Monocytes # (Auto) 0.9 10 ^3/uL (0-1.3) Eosinophils # (Auto) 0.3 10 ^3/uL (0-0.8) Basophils # (Auto) 0 10 ^3/uL (0-0.2) Nucleated Red Blood Cells 0.1 % Sodium Level 141 mmol/L (136-145) Potassium Level 4.4 mmol/L (3.5-5.1) Chloride Level 102 mmol/L (98-107) Carbon Dioxide Level 30 mmol/L (20-31) Anion Gap 9 (5-15) Blood Urea Nitrogen 21 mg/dL (9-23) Creatinine 0.76 mg/dL (0.550-1.02) Glomerular Filtration Rate Calc 97 mL/min (>90) BUN/Creatinine Ratio 27.6 (10.0-20.0) Serum Glucose 89 mg/dL (74-106) Calcium Level 9.7 mg/dL (8.7-10.4) Total Bilirubin 0.8 mg/dL (0.2-1.0) Aspartate Amino Transferase (AST) 40 U/L (13-40) Alanine Aminotransferase (ALT) 37 U/L (7-40) Alkaline Phosphatase 119 U/L (46-116) Total Protein 7.0 g/dL (5.7-8.2) Albumin 4.1 g/dL (3.2-4.8) Test 06/23/25 14:00 06/22/25 11:00 06/22/25 04:39 06/21/25 20:21 Thyroid Stimulating Immunoglobulin <0.10 IU/L (0.00-0.55) Thyroid Peroxidase Antibodies 20 IU/mL (0-34) Thyrotropin Receptor Antibody <1.10 IU/L (0.00-1.75) Urine Color Yellow (Yellow) Urine Clarity Turbid (Clear) Urine pH 6.0 (5.0-9.0) Urine Specific [place] 1.034 (1.001-1.035) Urine Protein Trace (Negative) Urine Ketones Negative (Negative) Urine Blood Trace /uL (Negative) Urine Nitrite Negative (Negative) Urine Bilirubin Negative (Negative) Urine Urobilinogen 2 mg/dL (Negative) Urine Leukocyte Esterase 1+ /uL (Negative) Urine RBC 3 /hpf (0 - 4) Urine Microscopic WBC 6 /HPF (0-5) Urine Squamous Epithelial Cells Mod /hpf (<5) Urine Bacteria Few /hpf (None Seen) Urine Mucus Few (None Seen) Urine Glucose Normal mg/dL (Normal) Hemoglobin A1c 5.1 % A1C (<5.7) Magnesium Level 1.8 mg/dL (1.6-2.6) Triglycerides Level 98 mg/dL (< 150) Cholesterol Level 107 mg/dL (< 200) LDL Cholesterol 52 mg/dL (< 100) HDL Cholesterol 40 mg/dL (40-59) Free Triiodothyronine (T3) pg/mL 7.98 pg/mL (2.3-4.2) Beta HCG, Quantitative 1.2 mIU/mL (1.5-4.2) Troponin I High Sensitivity 25 ng/L (</=34) Other Laboratory Tests 06/25/25 18:16 Brief Hx & Hospital Course: History of Present Illness 49-year-old female presents for evaluation of palpitations. Patient reports a one day history of palpitations. Patient reports a history of AFib. She also has an AICD. She reports developing palpitations that lasted approximately 4 hours. On arrival to the emergency department patient was noted to be in AFib with RVR. Amiodarone drip was ordered and patient converted prior to administration of amiodarone. Currently she reports left-sided chest pressure. No other acute complaints reported. Course of hospitalization: TSH was performed which found the patient to have hyperthyroidism after having full thyroid panel. Thyroid ultrasound unremarkable. Given patient has persistent chest discomfort, patient underwent nuclear stress test. Test was negative for any ischemic changes and an patient has been cleared by Cardiology. Patient's AFib has been controlled. She was noted to have intermittent chest pain that wakes her up. Reviewing telemetry rhythm, it appears the patient is having intermittent PVCs, small runs of VT. Patient did have CT scan of the chest which was negative for any acute pathology. Endocrinology consultation was obtained. Given the patient's repeat TSH, and need for persistent amiodarone use, patient will be placed on methimazole per their discretion. Patient is instructed to follow up with endocrinology in 2-3 weeks, in the discharge Clinic in one week. Patient was agreeable with discharge plan. All questions answered. Physical examination General: Alert and Oriented x3. No acute distress. Well-nourished. Eyes: EOMI. Anicteric. HENT: Moist mucous membranes. Lungs: Clear to auscultation bilaterally. No accessory muscle use. Cardiovascular: Regular rate and rhythm. No murmur. No JVD. Abdomen: Soft, non-tender and non-distended. No palpable masses. Extremities: No edema. Non-tender. Skin: No rashes or lesions. Warm. Neurologic: No focal neurological deficits. CN II-XII grossly intact, but not individually tested. Psychiatric: Cooperative. Appropriate mood and affect. Total time spent with patient discussing and formulating plan of care: 35 minutes. This medical document was created using an electronic medical record system with [employer]ation system. Although this document has been carefully reviewed, there may still be some phonetic and typographical errors. These areas are purely typographical due to imperfections of the software programs, and do not reflect any compromise in the patient's medical care. Consults/Reason for consult Cardiology: AFib with RVR, runs of VT Endocrinology: Hyperthyroidism Condition at Discharge: Guarded Final Diagnosis/Problems List AFib with RVR -hypothyroidism -primary hypertension -dyslipidemia -diabetes mellitus -obesity Discharge Disposition: Home Discharge Instruct/Medications Diet: Consistent carbohydrate Activity: No Restrictions, As Tolerated Follow Up/Referral: Follow up with the discharge Clinic Follow up with voice professor, Dr. Hurt in 2-3 weeks Medications: Continue all home medications [place] 5/325 q.8 hours as needed for [id number] chest pain Methimazole as ordered by endocrinology Scheduled Amiodarone Hcl (Amiodarone Hcl), 200 MG PO DAILY, (Reported) Apixaban Base (Eliquis), 5 MG PO BID, (Reported) Atorvastatin Calcium (Lipitor), 1 TAB PO DAILY, (Reported) Levofloxacin Hemihydrate (Levofloxacin), 1 TAB PO DAILY Metoprolol Tartrate (Metoprolol Tartrate), 100 MG PO DAILY, (Reported) Metronidazole (Metronidazole), 500 MG PO TID Scheduled PRN Hydrocodone-Acetaminophen (Hydrocodone Bitartrate/AC 5-325 mg), 1 TAB PO Q8HP PRN 36 Discharge Statement: "Patient was advised to return to the ER or call 911 if any headaches, dizziness, shortness of breath, chest pain, abdominal pain, bleeding, fevers, or worsening of medical condition. Patient was counseled about treatment plan, medications, possible side effects, patientverbalized understanding. All questions were answered to the best of my ability. This discharge took greater then 30 minutes in planning, reviewing documentation, counseling the patient, and discussing with other team members." ASSESSMENT ASSESSMENT Assessment AFib with RVR Date of Service: Jun 27, 2025 Billing Provider: TATUM BUCKNER NP Common Visit Codes: 15064-OYF/OBS DISCH DAY >30min TATUM BUCKNER NP Jun 27, 2025 09:56
--- NOTE | 2025-06-27 10:04 | CONS ---
Pharmacy Clinical Information: From Heart Failure Fallout Report on CQM Application, Stephani Luz Maria Abdi is a 49 year old female with PMH of Hypertension, diabetes mellitus, chronic compensated HFpEF, AFib. Please initiate an SGLT2 inhibitor as current guideline-directed medical therapy for HFpEF strongly supports SGLT2 inhibitors to reduce heart failure hospitalizations and improve mortality, regardless of diabetes status. This therapy also offers additional glycemic and renal benefits. Prior to initiation, confirm adequate renal function (eGFR ?2025 mL/min/1.73 m) and monitor for volume status and potential adverse effects. CASE[facility] LANGFORD [facility] Jun 27, 2025 10:04
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
[2025-06-27] MEDS: methIMAzole 5 MG TAB PO SCH (11:13)
[2025-06-27] MEDS: predniSONE 20 MG TAB PO SCH (11:14)
[2025-06-27 11:40] VITALS: BP 148/61; PULSE 60; RESP 18; TEMP 36.6; O2SAT 100
--- NOTE | 2025-06-27 23:09 | DVHPN2 ---
Progress Note - Dictate Date Seen: Jun 27, 2025 Medical Necessity Reason Pt with a Central, PICC or Fol: No Subjective Patient was seen and evaluated in follow up. Patient has no new complaints at this time. Patient denies any cardiac symptoms. Patient is cardiac stable for discharge. Telemetry reviewed. vital signs Vital Sign Date Time Temp Pulse Resp B/P (MAP) Pulse Ox O2 Delivery O2 Flow Rate FiO2 06/27/25 11:40 36.6 60 18 100 06/27/25 09:15 163/61 06/27/25 08:00 Room Air* 0 21 Total Intake and Output 06/26/25 06/26/25 06/27/25 15:00 23:00 07:00 Intake Total 1000 ml Balance 1000 ml objective GENERAL: Alert and oriented x 3. No acute distress. Obese. EYES: PERRL, EOMI. Anicteric. HENT: Moist mucous membranes. LUNGS: Clear to auscultation bilaterally. CARDIOVASCULAR: Regular rate and rhythm. ABDOMEN: Soft, nontender and nondistended. EXTREMITIES: No edema. NEUROLOGIC: No focal neurological deficits. SKIN: Warm, dry. laboratory and microbiology Laboratory Tests 06/25/25 18:16 Test 06/25/25 18:16 Range/Units Serum Glucose 89 74-106 mg/dL Problem List Atrial fibrillation with rapid ventricular response, now normal sinus rhythm. Chest pain, rule out coronary ischemia. Chronic compensated HFpEF, NYHA class II. Cardiac arrest x2. Paroxysmal atrial fibrillation with hx of direct current cardioversion (on amiodarone and Eliquis). Presence of ICD ([employer]tr[employer]). Hyperlipidemia. Rule out thyroid dysfunction. Morbid obesity. Assessment/Plan Continued all current supportive medical care. Amiodarone. DVT prophylactics. Metoprolol,Lipitor. Morphine for pain management. Additional plan as per the hospital course. Plan discussed with: Patient FLORIAN LENNON MD Jun 27, 2025 14:16
== END 2025-06-27 13:12 | disposition home or self-care (01) | DRG 201 ==
LOC: ER 17:03 → OVERFLOW 19:48 → TELE-EAST 06-22 22:34
PROVIDERS: ADMIT Nurse Practitioner Acute Care; ATTEND Nurse Practitioner Acute Care
DX: I48.0 Paroxysmal atrial fibrillation (principal); I47.20 Ventricular tachycardia, unspecified; I11.0 Hypertensive heart disease with heart failure; Z68.43 Body mass index [BMI] 50.0-59.9, adult; I16.0 Hypertensive urgency; E11.9 Type 2 diabetes mellitus without complications; D68.69 Other thrombophilia; N39.0 Urinary tract infection, site not specified; E03.9 Hypothyroidism, unspecified; E66.01 Morbid (severe) obesity due to excess calories; I50.32 Chronic diastolic (congestive) heart failure; I49.3 Ventricular premature depolarization; E78.5 Hyperlipidemia, unspecified; R07.89 Other chest pain; Z95.810 Presence of automatic (implantable) cardiac defibrillator; Z98.84 Bariatric surgery status; Z88.0 Allergy status to penicillin; Z87.891 Personal history of nicotine dependence; Z83.3 Family history of diabetes mellitus; Z82.49 Family history of ischemic heart disease and other diseases of the circulatory system; Z79.899 Other long term (current) drug therapy; Z90.49 Acquired absence of other specified parts of digestive tract
CPT/HCPCS: 36415; 71046; 71250; 76536; 78452; 80048; 80053; 80061; 81001; 82962; 83036; 83735; 84439; 84443; 84445; 84480; 84481; 84484; 84702; 85025; 85379; 85610; 85730; 86376; 86800; 93005; 93017; 93306; 99291; G0378; J1885